=== PATIENT | female | born 1950 | race Caucasian/White ===

== ENCOUNTER 2016-04-24 12:44 | Inpatient (IN) | payer OTHER ==
[~2016-04-24] VITALS: Ht 162.6 cm; Wt 113.5 kg
[2016-04-24] VITALS (34 sets, daily range): BP systolic 68–135; BP diastolic 23–118
--- NOTE | ~2016-04-24 | HC ---
[facility] [place] [address] CONSULTATION Name: EZIO CHE Room #: 246-P [facility] .R.#: [id number] Admission: 04/24/16 Attend Phys: Dave Heck MD Discharge: Date of : 52 Report #: [id number] THIS REPORT FOR: //name// CC: TORO physician/PCP Dave Heck REASON FOR CONSULTATION: The patient is a 65-year-old woman who is seen in the Intensive Care Unit with multiple medical problems including reported abdominal pain and abnormal liver functional studies. HISTORY OF PRESENT ILLNESS: This 65-year-old woman is currently in the Intensive Care Unit. She was admitted to the Emergency Room yesterday. No family available at this time. Apparently, she was found down at home naked on the floor covered with human and dog feces. It is not known how long she was on the floor. She was brought to the Emergency Room and she was hypothermic on presentation with a temperature of 92.9. Her blood pressure was 83/18. She appeared to be markedly dehydrated. She had a severe metabolic acidosis, and she had a pH of 6.736. Her bicarbonate on blood gas was 5.9. Her lactate was 3.94. This morning, she suffered a cardiac arrest and was brought to the Intensive Care Unit. She is currently intubated on a ventilator. She is on multiple pressors. She is also receiving continuous dialysis. Additional history is not available at this time. She did have an abdominal ultrasound, and the gallbladder was not visualized. Common bile duct was borderline enlarged. CT reveals medial bibasilar density suggesting atelectasis. A CT scan has been ordered but not yet done due to her unstable status. PAST MEDICAL HISTORY: Unknown at this time. ALLERGIES: Unknown. HOME MEDICINES: Unknown. FAMILY HISTORY: Unknown. SOCIAL HISTORY: Unknown. Dr. Rosas mentioned to me that she may have some psychiatric issues. PHYSICAL EXAMINATION: GENERAL: Well-developed and well-nourished woman who is orally intubated in the Intensive Unit. VITAL SIGNS: Blood pressure 100/74, pulse of 124, her body temperature is up to 97.5, she has been intermittently hypotensive with systolic pressures as low as 68. HEENT: She is anicteric. Pupils equal and round. Oropharynx clear. Nasogastric tube is seen with a greenish material in the tube. NECK: Supple. CHEST: Clear. [address] [address] CONSULTATION Name: EZIO CHE Room #: 246-P [facility] IN ..#: [id number] Admission: 04/24/16 Attend Phys: Dave Heck MD Discharge: Date of : 52 Report #: [id number] CARDIOVASCULAR: Tachycardic, S1 and S2. ABDOMEN: Normal bowel sounds, some generalized fullness across the upper abdomen. I do not appreciate a specific discrete mass. Hepatosplenomegaly is not appreciated. Bowel sounds are quite at this time. She appears to have a benign abdomen. RECTAL: Not done. EXTREMITIES: With mild peripheral edema. NEUROLOGIC. The patient is unresponsive, on the ventilator. She may be on propofol. LABORATORY STUDIES: White count today is 17.4. It was 33.4 yesterday. Hemoglobin was initially 12.9. It is 9.5 today. MCV of 95.3 and platelet count of 233,000. She had 8% bands yesterday. Sodium 140, it was 151 yesterday. Potassium is 5.4, it was 8.7 on admission. CO2 is 5, it was 7 on admission. BUN was 202 on admission, it is now down to 153. Creatinine was 12.7 on admission, now down to 9.2. Blood sugar was 232 on admission. AST was initially 145, it went to 1247 earlier this morning, but on repeat later this morning it was 1122. Amylase was elevated at 250, lipase elevated at 1278. Alkaline phosphatase was 173 initially, now down to 98. ALT was 108 and on repeat was 594 and a repeat again was done and it was 573. Albumin of 1.7. Lactic acid of 6.8. CPK of 3297 and CK-MB was 111 and troponin was 0.15. INR of 1.4. Hepatitis B surface antigen was negative. Hepatitis C antibody is negative. ASSESSMENT: 1. Abnormal liver function studies, likely shock liver. 2. Septic like picture. 3. Severe acidosis. 4. Severe acute kidney surgery. 5. Reported history of abdominal pain, specific unknown. 6. Reported history of psychiatric disorders, specifics unknown. COMMENT: Case discussed with Dr. Harvey Toney, Dr. Patrick Rosas and Dr. Price Arias. Critically ill patient with very little history is known. She has a marked acidosis. From a GI standpoint, it appears her LFTs may be starting to trend down. She has not developed a coagulopathy. These are all positive signs with regards to presumed shock liver. It is not known whether she has any history of chronic liver disease or alcohol history. There was some report of abdominal pain, significance is unclear. Abdomen, as best as I can determine at this time, is benign. However, in view of her marked acidosis, we need to exclude ischemic gut. In addition, she has mild elevation of amylase and lipase. This has likely resolved her acute kidney injury. PLAN: [address] [place] [address] CONSULTATION Name: EZIO CHE Room #: 246-P ADM IN .R.#: [id number] Admission: 04/24/16 Attend Phys: Dave Heck MD Discharge: Date of : 51 Report #: [id number] as soon as able to do so with regards to transporting her to Radiology. 2. Continue to monitor liver function studies. 3. PPI. 4. Continue current care in the Intensive Care Unit. 5. Continue antibiotics. <ELECTRONICALLY SIGNED> By: Kenneth Diaz MD 04/26/16 1104 1235 0430 Kenneth Diaz MD /nt
--- NOTE | ~2016-04-24 | HC ---
[facility] [place] [address] CONSULTATION Name: EZIO CHE Room #: 246-P ADM IN M.R.#: [id number] Admission: 04/24/16 Attend Phys: Dave Heck MD Discharge: Date of : 51 Report #: [id number] THIS REPORT FOR: //name// CC: TORO physician/PCP Dave Heck PRIMARY CARE PHYSICIAN: Unknown. REFERRAL PHYSICIAN: Dave Heck M.D. REASON FOR REFERRAL: Acute respiratory distress. HISTORY OF PRESENT ILLNESS: The patient is a 65-year-old white female who was brought to the Emergency Room via EMS with altered mental status. She was found to be confused, in distress, with severe metabolic acidosis. A pulmonary critical care consultation was requested. Note that most of the history is obtained from the Emergency Room records. The spouse is not available. There are no family members present. No medical records. According to EMS, the patient's , who does not live with her, found her down naked, covered with feces at her home. The house was said to be unkempt with trash around the house. She was felt to be confused. The called EMS. The patient was brought to the Emergency Room. In the ER, the patient was found to be hypothermic. Subsequent laboratory data showed that she was profoundly metabolic acidotic with creatinine of more than 10, potassium of 8.7 and bicarbonate of 7. Again, there is no history including her past medical history. At present, she is moaning, tachypneic. She is moving most of the extremities. She is not coherent. PAST MEDICAL HISTORY: Incomplete and unknown. PAST SURGICAL HISTORY: As above. ALLERGIES: Unknown. HOME MEDICATIONS: Unknown. FAMILY HISTORY AND SOCIAL HISTORY: Unknown. The patient apparently is , but they do not live together. She apparently lives at her home by herself. It appears that the patient has not been able to care for herself. [facility] [address] [place] [address] CONSULTATION Name: EZIO CHE Room #: [facility] IN [facility]#: [id number] Admission: 04/24/16 Attend Phys: Dave Heck MD Discharge: Date of : 51 Report #: [id number] REVIEW OF SYSTEMS: Deferred as the patient is unable to provide any history. PHYSICAL EXAMINATION: GENERAL: She appears to be restless, incoherent, moaning and tachypneic. VITAL SIGNS: Temperature is 33.8 degrees Celsius, pulse is 70, respiratory rate is 28 and blood pressure is 83/____ mmHg. HEENT: Normocephalic and atraumatic. Mouth revealed a poor oral hygiene. NECK: Supple without any lymphadenopathy or thyromegaly. CHEST: Breath sounds are fair. Mild coarse breath sounds bilaterally. CARDIOVASCULAR: Heart sounds are distant. No obvious murmurs or gallop. BREASTS: Exam is deferred. ABDOMEN: Obese, soft and nontender. No organomegaly or masses felt. There appears to be rash along the pannus, along the lower abdomen area. GENITOURINARY: Deferred. RECTAL: Deferred. EXTREMITIES: No cyanosis, clubbing or edema. DIAGNOSTIC DATA: Chest x-ray shows small lung volume, cardiomegaly. She has a metal plate with screws along the left femoral head. Central line is in place in the right internal jugular. LABORATORY DATA: Sodium 140, potassium 4.7, chloride 103, CO2 is 7, BUN is 202, creatinine is 12.7 and glucose is 231. Liver function test is moderately elevated. WBC 33,400. There is 8% bandemia. Platelets are normal. Hemoglobin is 12.9. CPK is 1500. Troponin is normal. Arterial blood gases reveal pH 7.673, PaCO2 of 22 and PaO2 of 135 on room air. IMPRESSION: 1. Acute respiratory distress in this 65-year-old white female. This is likely related to severe metabolic acidosis. Without much history, suspect component of diabetic ketoacidosis. Severe sepsis is also considered along with severe acidosis related to renal failure. 2. Suspect profound extracellular volume depletion resulting in acute kidney injury with BUN of 200s and creatinine of 12.7. Soni during the ER visit has shown no urine output. 3. Elevated liver function tests. Suspect shock liver. 4. Leukocytosis. Need to consider occult infectious process, though source is unclear. 5. Profound hyperkalemia in part related to severe metabolic acidosis and renal failure. Renal has been consulted. RECOMMENDATION: She is oxygenating fairly well except for metabolic abnormalities. We will recommend correcting metabolic acidosis and also treat for presumed DKA until we can stabilize her acidosis. I agree with aggressive IV fluid replacement. Respiratory decompensation is possible. We will need to monitor closely. Would also start broad spectrum antibiotics. Culture has been [facility] [address] [place] [address] CONSULTATION Name: EZIO CHE Room #: 246-P ADM IN M.R.#: [id number] Admission: 04/24/16 Attend Phys: Dave Heck MD Discharge: Date of : 51 Report #: [id number] obtained. I agree with imaging study of the brain given that she was found down at home. However, we need to stabilize the patient prior to sending her to radiology. She also has abdominal pain on examination. We will recommend abdominal CT and pelvis, non-contrast study. Her altered mental status is probably related to metabolic derangement, but we will need to assess once she improves. We will try to obtain records if possible. We will also consult social service to assist us in getting family members if possible, to help with getting records and information. DVT and GI prophylaxis will be addressed. Thank you for this consultation. <ELECTRONICALLY SIGNED> By: Patrick Rosas MD 05/01/16 1634 1548 [id number] Patrick Rosas MD /nt
--- NOTE | ~2016-04-24 | HC ---
[facility] [place] [address] CONSULTATION Name: EZIO CHE Room #: 429-P [facility] IN M.R.#: [id number] Admission: 04/24/16 Attend Phys: Dave Heck MD Discharge: 05/07/16 Date of : 51 Report #: [id number] THIS REPORT FOR: //name// CC: TORO physician/PCP Dave Heck DATE OF SERVICE: 05/06/2016 HISTORY OF PRESENT ILLNESS: This lady has currently been managed with respect to a sudden change in mental status. Her "" who does not live with her went to her home to check on her and found her in an unfortunate state. It is unknown how long she had been down in the scene. On arriving, she was hypothermic with a temperature of 92.9. She is currently receiving dialysis. She has limited recollection for all the recent medical events including acute renal failure, profound weakness, septic shock, acute kidney injury, encephalopathy and hypothyroidism. The patient has no complaints at this time. She feels she is becoming more alert, as does nursing. PAST PSYCHIATRIC HISTORY: There is a longstanding history of depression. Most recently had been seeing Dr. Melton and she is seeing this provider for several years. She has essentially been maintained on the combination of Effexor and dextroamphetamine. She has no history of inpatient psychiatric stay, she has no history of suicide attempts. PAST MEDICAL HISTORY: As above. SOCIAL HISTORY: , but appears she and her may be or live apart. I do not believe there are any active substance abuse issues. Reviewed rn case manager notes that include concerns about hoarding and difficulty with safe and hygienic environment at home due to bowel incontinence and hoarding. This may have contributed to fall risk and this has apparently happened in the past. CURRENT MEDICATIONS: She has not been on her home medications at this time, I believe she is n.p.o. Current medication combination includes levothyroxine every 3 days, vancomycin 250 every 6 hours, Protonix 40 daily, Ativan p.r.n., insulin p.r.n. MENTAL STATUS EXAM: female, awake, alert, stable mood and affect. No suicidal ideation, no homicidal ideation, no hallucinations, no delusions. Insight and judgment fair. DIAGNOSES: AXIS I: Major depressive disorder, recurrent, moderate. Rule out attention deficit disorder. [facility] [address] [facility] [place] [address] CONSULTATION Name: EZIO CHE Room #: 429-P [facility] IN ..#: [id number] Admission: 04/24/16 Attend Phys: Dave Heck MD Discharge: 05/07/16 Date of : 51 Report #: [id number] AXIS II: Deferred. AXIS III: See past medical history, includes acute kidney injury, rhabdomyolysis, septic shock, etc. AXIS IV: Moderately severe. AXIS V: 45. RECOMMENDATIONS: We will look at restarting some of her psychotropic regimen when she is able to tolerate p.o. and can contact Dr. Melton as necessary for input, provided supportive therapy. <ELECTRONICALLY SIGNED> By: Fernando Gomes MD 05/12/16 1412 1251 1606 Fernando Gomes MD /nt
--- NOTE | ~2016-04-24 | H ---
[facility] [address] HISTORY AND PHYSICAL Name: EZIO CHE Room #: 246-P ADM IN M.R.#: [id number] Admission: 04/24/16 Attend Phys: Dave Heck MD Discharge: Date of : 52 Report #: [id number] THIS REPORT FOR: //name// CC: TORO physician/PCP Dave Heck DATE OF SERVICE: 04/24/2016 History was primarily obtained from talking to Dr. Hendrickson and also reviewing the ER sheet. No family available at bedside. The patient was brought in by her ex-. HISTORY OF PRESENT ILLNESS: The patient is a 65-year-old female with known past medical history, presented in the a.m. with secondary to altered mental status. Per EMS, patient's who does not live with her apparently went into her house and found her on the floor naked and covered with human and dog feces. It is unknown how long the patient was down. EMS was called and the patient was brought to the Emergency Room. On arrival to the Emergency Room, her temperature was 92.9. Her blood pressure was 83/18. She was found to be profoundly dehydrated. She was also found to be having severe metabolic acidosis with acute renal failure. The patient is at present very lethargic, but she was able to open her mouth when I asked her to do so. Her eyes are open at present. PAST MEDICAL HISTORY: Unable to obtain at present. REVIEW OF SYSTEMS: Unable to obtain from the patient. SOCIAL HISTORY AND FAMILY HISTORY: Unable to obtain at present. ALLERGIES: Unknown. HOME MEDICATION: Unknown. PHYSICAL EXAMINATION: VITAL SIGNS: Reviewed. Blood pressure is presently 90/67, heart rate of 87 per minute. She is breathing at around 32 per minute. Her temperature on arrival was 33.8. HEENT: Eyes are open. She is moving her head with a little bit of agitation. She is able to open her mouth when I asked her to do so. The pupils are around 2 mm, reactive to light. MOUTH: She has very dry oral mucosa. NECK: Supple, no JVD, no bruit, no lymphadenopathy. CARDIOVASCULAR: S1, S2, negative S3, no murmur. CHEST: Bilateral air entry present. Clear on auscultation. Reduced breath sounds in the bases. [facility] [address] [place] [address] HISTORY AND PHYSICAL Name: EZIO CHE Room #: [address] [place] [address] IN ..#: [id number] Admission: 04/24/16 Attend Phys: Dave Heck MD Discharge: Date of : 51 Report #: [id number] ABDOMEN: Soft, bowel sounds present, no mass, no organomegaly, no tenderness, but soft. She has extensive tinea cruris in her groin. PERIPHERY: No pedal edema. No calf tenderness. Dorsalis pedis is very feeble and difficult to appreciate bilaterally. EXTREMITIES: Cold and she was able to move all 4 extremities. LABS REVIEWED: pH of 6.736, pCO2 is 26, pO2 is 135. Lactate is 6.12. Bicarbonate on the basic metabolic panel was 7, potassium was 8.7, sodium is 140, BUN and creatinine are 202 and 12.7. Calcium is 10.5, phosphorus is 17.3 with a bilirubin of 0.5, AST and ALT are elevated at 145 and 108, alkaline phosphatase is 137. Creatinine kinase is 1562, albumin is 2.9. Bicarb was 7. White count is 33.4, hemoglobin is 12.9. Differential on the white count showed 8% band and 85% neutrophils. Albumin is 2.9. IMAGING: Chest x-ray showed mild atelectasis in the lung base with osteophyte formation at multiple levels and thoracic spine. No focal pneumonia or pneumothorax noted. EKG showed sinus tachycardia, nonspecific intraventricular conduction delay. ASSESSMENT: 1. Altered mental status. Likely, secondary to metabolic encephalopathy secondary to multiple critical issues. We will go ahead and obtain a CT of the brain to rule out any intracranial process. 2. Acute renal failure likely prerenal and there is also component of rhabdomyolysis. The patient will be aggressively hydrated with IV fluid. Nephrology has been consulted in the Emergency Room. I did talk to Dr. Vera and the plan is to place a central line hydrated with IV fluid and hyperkalemia was also aggressively treated as per his recommendation with calcium carbonate, D50, insulin and high dose. We will repeat her labs again. 3. Hyperkalemia. Treated aggressively. Hyperkalemia likely secondary to a combination metabolic acidosis, dehydration and acute renal failure. 4. Severe metabolic acidosis. The patient has received bicarb IV pushes in the Emergency Room. The patient will be hydrated with IV fluid. We will repeat her lab again and consider placing her on bicarb drip. 5. Leukocytosis secondary to stress/infection. We will start her on a broad-spectrum antibiotic IV Zosyn. We will repeat her WBC in the morning. 6. Deep venous thrombosis prophylaxis. She will be placed on SCD on the leg for deep vein thrombosis prophylaxis. 7. Hyperglycemia. The patient will be placed on frequent Accu-Chek and sliding scale insulin. We will also check an A1c level. [address] [address] HISTORY AND PHYSICAL Name: EZIO CHE Room #: 246-P [facility] IN ..#: [id number] Admission: 04/24/16 Attend Phys: Dave Heck MD Discharge: Date of : 51 Report #: [id number] The patient is critically ill and prognosis is guarded at present. <ELECTRONICALLY SIGNED> By: Dave Heck MD 04/25/16 1146 1504 1720 Dave Heck MD /nt
--- NOTE | ~2016-04-24 | HC ---
[facility] [place] [address] CONSULTATION Name: EZIO CHE Room #: 246-P ADM IN M.R.#: [id number] Admission: 04/24/16 Attend Phys: Dave Heck MD Discharge: Date of : 52 Report #: [id number] THIS REPORT FOR: //name// CC: TORO physician/PCP Dave Heck REASON FOR CONSULTATION: Acute kidney injury, hyperkalemia, metabolic acidosis. REASON FOR THE PRESENTATION: The patient was brought by the [facility]. No family available. Message was relayed to me that she is , but the marriage arrangement is not clear to me whether she is or . Her checked ahead and called EMS and directed them to the hospital where she was found down. HISTORY OF PRESENT ILLNESS: The patient is not able to provide any history. All of the history was obtained from the medical reports. She is 65-year-old who was brought to the emergency room at her 's request, who does not live with her. He found her on the floor, covered with human excreta. It was unknown for how long, the patient was down. She was found to be hypothermic with hypotension and was brought to the emergency room for further evaluation and management. In the Emergency Room, she was hypotensive. She did have a pulse and the blood pressure. Her initial laboratory evaluation revealed severe metabolic acidosis with hyperkalemia, I was consulted with elevated BUN and creatinine for which I was consulted appropriately. PAST MEDICAL HISTORY: Unknown given the patient's medical status. I attempted to call the with the available phone number and no answer. REVIEW OF SYSTEMS: Unobtainable. SOCIAL HISTORY, FAMILY HISTORY: Unobtainable given the patient's medical status. ALLERGIES: Unknown. MEDICATIONS: Really unknown given the fact that the patient is not able to provide us with any history and there are no available previous medical records. PHYSICAL EXAMINATION: GENERAL: The patient was hypotensive, minimally responsive. VITAL SIGNS: Blood pressure initially was 83/30. She was hypothermic with a temperature of 33.6. HEAD AND NECK: Extremely dry mucous membrane, no jugular venous distention. Very poor dental hygiene. CHEST: Decreased air entry, but no crackles. CARDIOVASCULAR: Tachycardic with no rub detected. ABDOMEN: Soft, nontender with no hepatosplenomegaly. [address] [address] CONSULTATION Name: EZIO CHE Room #: 246-P [facility] IN M.R.#: [id number] Admission: 04/24/16 Attend Phys: Dave Heck MD Discharge: Date of : 52 Report #: [id number] There is what seems to be a yeast infection in the abdominal skin below the abdominal skin folds. LOWER EXTREMITIES: Trace edema. LABORATORY DATA: All of the laboratory values were also abnormal range with a white blood cell count of 33,000, bands of 8%. Blood gas initially showed a pH of 6.7 with the lactate value of 2.39, down from a lactate value of 6.12. Chemistry revealed that the patient has a potassium of 8.7 with a carbon dioxide of 7, a BUN of 212, a creatinine of 12.7, calcium of 10.5, a phosphorus of 17.3, an elevated AST, elevated ALT, elevated CPK, and elevated lipase. Urine showed +2 protein with +3 blood, +3 leukocyte Estrace. IMAGES: Reviewed. ASSESSMENT, IMPRESSION, PLAN: 1. Acute kidney injury. 2. Profound shock. 3. Lactic acidosis. 4. Hyperkalemia. 5. Elevated AST. 6. Elevated ALT. 7. Elevated lipase. 8. Leukocytosis with bandemia. 9. Sepsis. 10. Unfortunately, the patient's past medical history is not clear to us. At this point, I would treat the patient as septic shock. 1. I have talked with the hospitalist and with the ER physician. I also attempted to talk with the ; however, there was no answer. Her hyperkalemia will be managed medically. 2. ____ will be placed. 3. Septic workup was initiated. 4. Broad spectrum antibiotics should be started empirically to cover both gram-positive and gram-negative. 5. Aggressive intravenous fluid resuscitation. 6. Serial labs. 7. . 8. Watch the pulmonary status and intubate if she deteriorates. 9. Investigate the source of the elevation of her ALT, AST, lipase. 10. Rule out rhabdomyolysis. 11. I see no emergent indications for dialysis despite the significantly abnormal renal values and metabolic acidosis. I expect her metabolic acidosis, [facility] [address] [place] [address] CONSULTATION Name: EZIO CHE Room #: 246-P ADM IN M.R.#: [id number] Admission: 04/24/16 Attend Phys: Dave Heck MD Discharge: Date of : 52 Report #: [id number] hypokalemia, acute kidney injury to respond to medical treatment within the next few hours and I will stay in touch with the ICU nurses regarding her values. <ELECTRONICALLY SIGNED> By: Joy Vera MD 05/01/16 0926 2042 0137 Joy Vera MD /nt
--- NOTE | ~2016-04-24 | EKG ---
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
--- NOTE | ~2016-04-24 | HC ---
[facility] [place] [address] CONSULTATION Name: EZIO CHE Room #: 429-P [facility] IN ..#: [id number] Admission: 04/24/16 Attend Phys: Dave Heck MD Discharge: 05/07/16 Date of : 52 Report #: [id number] THIS REPORT FOR: //name// CC: TORO physician/PCP Dave Heck DATE OF SERVICE: 04/25/2016 HISTORY OF PRESENT ILLNESS: The patient is a 65-year-old female who was admitted on 04/24/2016 with altered mental status. The patient was left at the Emergency Department after she had been found on the floor, naked, covered in feces. It is unknown how long the patient had been down. The patient was hypothermic upon arrival with a rectal temperature of 92.9 degrees Fahrenheit. The patient was evaluated by internal medicine and critical care and had been kept in the Intensive Care Unit. Unfortunately, imaging was not obtained as she was admitted. Overnight at some point, the patient went into cardiac arrest and developed a Code Blue situation. She was intubated and resuscitated to some degree. Today, she is on vasopressor support and still intubated. She is also noted to have acute renal failure and is on CRRT presently. General surgery is consulted as the etiology of her shock is unknown. There is question as to whether there might be an intra-abdominal process which might be contributing to her toxic critical illness. Temporary dialysis catheter as well as a triple-lumen central venous catheter had been placed during her resuscitation. Chest x-rays suggested pulmonary congestion without failure and possible atelectasis. Initial laboratory evaluation showed that she was exceedingly ill with a lactate of 6.8, white blood cell count of 33.4 thousand, hemoglobin of 12.9 and an initial pH of 6.736 and base access of negative 31.9. Ultrasound of the abdomen was attempted. No gallbladder was visualized. Common bile duct was visualized at 6.6 mm in diameter. Liver was 14.7 cm. Spleen 10.3 cm maximum. No obvious abnormalities of the pancreas, aorta or IVC. No ascites or effusion was noted. Lipase was mildly elevated at 1278 and amylase at 250. PTT 39.1 and ammonia of 32. ALLERGIES: Unknown. MEDICATIONS: Unknown. The patient is presently on broad-spectrum antibiotics per infectious disease as well as vasopressor support in the Intensive Care Unit. PAST MEDICAL HISTORY: Unknown. FAMILY HISTORY AND SOCIAL HISTORY: Unknown. REVIEW OF SYSTEMS: Unobtainable [place] [address] CONSULTATION Name: EZIO CHE Room #: 429-P [facility]#: [id number] Admission: 04/24/16 Attend Phys: Dave Heck MD Discharge: 05/07/16 Date of : 52 Report #: [id number] PHYSICAL EXAMINATION: GENERAL: The patient is intubated and morbidly obese. She is . No obvious icterus is noted. VITAL SIGNS: The patient is now with mild fever at 38.2, pulse in the 120s, respirations in the 30s, blood pressure of 110s/90s on vasopressor support according to the non-invasive blood pressure monitor. Saturation of 94%. The patient does have a BMI of 35.5. HEENT: Head is atraumatic and normocephalic. Endotracheal tube is secure. LUNGS: Coarse bilaterally. NECK: Supple. HEART: Regular without obvious murmur. ABDOMEN: Obese. She does seem to grimace with deep palpation in the left upper quadrant, epigastrium and right upper quadrant. Multiple well-healed surgical scars including a midline celiotomy and either a laparoscopic port or a drain site in the upper mid abdomen. GENITOURINARY: Soni catheter is in place. Concentrated urine, scant. EXTREMITIES: Cool and clammy, consistent with current need for vasopressor support. LABORATORY DATA: Total bilirubin of 0.3, AST of 1122, ALT of 573 and alkaline phosphatase of 98. IMPRESSION AND PLAN: The patient is a 65-year-old female with severe shock of unclear etiology. This could be cardiac versus septic. There are no obvious signs of trauma at this point. The patient is also an acute renal failure, undergoing continuous renal reperfusion therapy via a temporary hemodialysis catheter which was placed by interventional radiology earlier. Profound metabolic acidosis with initial pH of 6.7 and a lactic acid level of 6.8, which are worrisome findings from a survivability perspective. Upper abdominal discomfort is noted on examination. This is possibly associated with Code Blue resuscitation, which was performed early this morning. One question that had been raised was whether fulminant acute cholecystitis could be a contributing factor. However, gallbladder is not visualized, although the common bile duct is visualized. The common bile duct measurements would be normal in size, should the patient have undergone previous cholecystectomy. Unfortunately, the patient's past medical and past surgical history are unknown at this time. Given her critically ill status requiring ongoing vasopressor support, even transporting the patient to the CT scanner will be dangerous. Certainly, the patient is not an operative candidate at this time, and there are no obvious indications for an abdominal exploration at this stage. Family is apparently unavailable to discuss the patient's wishes and to obtain a further history at this time. General Surgery team will follow closely and continue to [facility] [address] [place] [address] [place] [address] CONSULTATION Name: TODDEZIO TOMAS Room #: 429-P [facility] IN M.R.#: [id number] Admission: 04/24/16 Attend Phys: Dave Heck MD Discharge: 05/07/16 Date of : 51 Report #: [id number] be available should information arise, which would give indication for general surgical intervention. Consultation appreciated. <ELECTRONICALLY SIGNED> By: Harvey Toney MD 05/11/16 1145 1527 0755 Harvey Toney MD /nt
--- NOTE | ~2016-04-24 | 2DMMODE ---
[facility] [employer] [place] [address] 2 D/M-MODE ECHOCARDIOGRAM Name: EZIO CHE Room #: 429-P [facility] IN .#: [id number] Admission: 04/24/16 Attend Phys: Sandra Jeter Discharge: Date of : 52 Date of Service: 05/06/16 0920 Report #: [id number] THIS REPORT FOR: //name// Transthoracic Echocardiography Ordering physician: Truong Molina Referring physician: Truong Molina Puller Out: SEBLE Gomes Indications/History: S/P cardiac arrest. BP: 116 / HR: 122bpm Height: 64in Weight: 249.5lb 56 Study data: M-mode, complete 2D, complete spectral Doppler, and color Doppler. Location: Bedside. Routine. Image quality was poor. The study was technically limited due to poor acoustic window availability, restricted patient mobility, surgical dressings, and body habitus. 2D measurements Normal Normal LVID ED 35mm 36-57 IVS ED 14.3mm 6-11 LVID ES 21.4mm 23-40 LVPW ED 15.4mm 6-11 LA volume index 16-28 AoRoot diam ED 31.5mm 21-37 LVOT diameter 18-23 Findings: Left ventricle: The cavity size was normal. Wall thickness was increased in a pattern of moderate LVH. Systolic function was hyperdynamic. The estimated ejection fraction was in the range of 75% to 80%. Wall motion was normal. Right ventricle: The cavity size was normal. Systolic function was normal. Right atrium: The atrium was normal in size. Left atrium: The atrium was normal in size. Aortic valve: Structurally normal valve. Doppler: There was no stenosis. No regurgitation. Peak velocity: 162.2cm/s (S). Peak gradient: 10.5mm Hg (S). Mitral valve: Structurally normal valve. Doppler: [facility] [address] [place] [address] 2 D/M-MODE ECHOCARDIOGRAM Name: EZIO CHE Room #: 429-P [facility] IN M.R.#: [id number] Admission: 04/24/16 Attend Phys: Sandra Jeter Discharge: Date of : 52 Date of Service: 05/06/16919 Report #: [id number] There was no evidence for stenosis. No regurgitation. Tricuspid valve: Structurally normal valve. Doppler: There was no evidence for stenosis. No regurgitation. Pulmonic valve: Structurally normal valve. Doppler: There was no evidence for stenosis. No regurgitation. Pericardium: There was no pericardial effusion. Aorta: Aortic root: The aortic root was normal in size. Pulmonary artery: Pressure could not be reliably determined due to minimal or absent tricuspid insufficiency jet, but pulmonary hypertension was not suggested. Diastolic function: The study is not technically sufficient to allow evaluation of LV diastolic function. Systemic veins: Inferior vena cava: The vessel was normal in size; the respirophasic diameter changes were in the normal range (= 50%). Conclusions Limited echo study. 1. Left ventricle: Systolic function was hyperdynamic. The estimated ejection fraction was in the range of 75% to 80%. Wall motion was normal. 2. Aortic valve: Structurally normal valve. There was no stenosis. No regurgitation. 3. Mitral valve: Structurally normal valve. No regurgitation. 4. Pericardium, extracardiac: There was no pericardial effusion. <ELECTRONICALLY SIGNED> By: Crescencio Jimenez MD, [facility] 05/06/16 1021 0920 1021 Crescencio Jimenez MD, FACC /s[place]ia
--- NOTE | ~2016-04-24 | HC ---
[facility] [place] [address] CONSULTATION Name: EZIO CHE Room #: 246-P ADM IN M.R.#: [id number] Admission: 04/24/16 Attend Phys: Dave Heck MD Discharge: Date of : 52 Report #: [id number] THIS REPORT FOR: //name// CC: TROO physician/PCP Dave Heck REASON FOR CONSULTATION: I was asked to evaluate concerning septic shock with acute renal failure. HISTORY OF PRESENT ILLNESS: The patient was a 65-year-old who was found at home with altered mental status, naked on the floor, covered in feces. She was found by her . Transported to the Emergency Room where she has been hypothermic with blood pressure systolic in the 80s. She has been given IV fluids. The patient is unable to give any history. She was responsive, but confused. ALLERGIES: None known. MEDICATIONS: Not known. She has been given Zosyn, fluconazole and placed on insulin. PAST MEDICAL HISTORY: Not available. FAMILY HISTORY AND SOCIAL HISTORY: Not available. REVIEW OF SYSTEMS: The patient has a right IJ catheter and a right IJ dialysis catheter in place, an indwelling Soni catheter with no urine output. She has been incontinent of loose stool. PHYSICAL EXAMINATION: VITAL SIGNS: Temperature is 92.9, heart rate 88, blood pressure 92/48. GENERAL: She was awake and responsive with cry out when moving her. HEENT: Unremarkable. NECK: Supple. LYMPH: Small node palpable in the right axilla. LUNGS: Clear. HEART: Regular without associated murmur. ABDOMEN: Protuberant, diffusely tender, no hepatosplenomegaly or mass appreciated. RECTAL: With small amount of liquid stool in the vault. EXTERNAL GENITALIA: Unremarkable with indwelling Soni catheter. She did have perineal intertrigo beneath her abdominal pannus and in her groin region as well as her buttock. EXTREMITIES: Otherwise unremarkable. NEUROLOGIC: Nonfocal. LABORATORY STUDIES: Sodium 140, potassium 8.7, bicarbonate of 7, BUN 202, creatinine 12.7. Lipase 1278. AST 145, ALT 108, alkaline phosphatase 173, [address] [address] CONSULTATION Name: EZIO CHE Room #: 246-P ADM IN .R.#: [id number] Admission: 04/24/16 Attend Phys: Dave Heck MD Discharge: Date of : 52 Report #: [id number] bilirubin 0.5, blood glucose 232. Lactate 6.8. CPK 1562, troponin negative. INR 1.3, hemoglobin 12.9, platelet count 284,000. White count 33.4 with 85% segs, 8% bands, 3% lymphs. Blood cultures are pending. Urinalysis is pending. ABG on 100% mask, pO2 of 254, pCO2 of 22, pH 7.09. Chest x-ray: Small area of basilar atelectasis. Ultrasound of the abdomen unremarkable. IMPRESSION: A 65-year-old with a profound metabolic acidosis and acute renal failure along with evidence of pancreatitis and mild hepatitis. She has diffuse abdominal pain, indeterminant as to the cause at this time. Would be concerned about acute pancreatitis versus colitis either ischemic or associated with diverticular disease. Also, has evidence of intertrigo. She has a suspected right axillary node which was freely movable. Did not palpate any right breast mass. No other adenopathy was noted. RECOMMENDATIONS: Continue sepsis treatment, IV antibiotic therapy, acute dialysis. CT scan of the abdomen and pelvis. Cultures of the urine and blood and continue full support. <ELECTRONICALLY SIGNED> By: Price Arias MD 04/25/16 1024 1811 0036 Price Arias MD /nt
[2016-04-24 13:13] LABS: HEMATOCRIT 41.3 % (37.0-47.0); HEMOGLOBIN 12.9 gm/dL (12.0-15.0); MCH 29.8 pg (26.0-34.0); MCHC 31.3 % (28.0-37.0); MCV 95.1 fL (80.0-100.0); PLATELET COUNT 455 thou/uL (150-400); RBC 4.35 mil/uL (4.20-5.00); RDW 15.2 % (10.5-14.5); WBC 33.4 thou/uL (4.0-11.0)
[2016-04-24 13:16] LABS: MANUAL DIFF YES
[2016-04-24 13:28] LABS: ANION GAP 30 mmol/L (7-16); BUN 202 mg/dL (7-18); CALCIUM 10.5 mg/dL (8.5-10.1); CHLORIDE 103 mmol/L (98-107); CREATININE 12.7 mg/dL (0.6-1.3); GLUCOSE 232 mg/dL (70-99); SODIUM 140 mmol/L (136-145)
[2016-04-24 13:31] LABS: CO2 7 mmol/L (21-32); POTASSIUM 8.7 mmol/L (3.5-5.1)
[2016-04-24 13:44] LABS: ALBUMIN 2.9 g/dL (3.4-5.0); ALKALINE PHOSPHATASE 173 U/L (46-116); SGOT 145 U/L (15-37); SGPT 108 U/L (30-65); TOTAL BILIRUBIN 0.5 mg/dL (<0.1-1.0); TOTAL PROTEIN 7.5 g/dL (6.4-8.2); TROPONIN-I < 0.04 ng/mL (<0.04-0.07)
[2016-04-24 13:45] LABS: ABSOLUTE NEUTROPHILS 31.1 thou/uL (1.4-8.2); TOTAL CELL COUNT 100
[2016-04-24 13:46] LABS: ABG SAMPLE TYPE ARTERIAL; BE(vivo) -31.9 mmol/L (-2 to +3); O2(CT) 16.8 mL/dL (15.0-23.0); O2Hb 96.5 % (92.0-98.0); PO2 135.9 mmHg (80.0-100.0); sO2 94.5 % (92.0-98.0); tCO2 3.7 mmol/L (24.0-30.0)
[2016-04-24 13:46] LABS: ANISOCYTOSIS 1+
[2016-04-24 13:47] LABS: LACTATE 6.12 mmol/L (0.5-2.0); PCO2 22.7 mmHg (35.0-45.0); STICK SITE L.RADIAL; pH 6.736 (7.360-7.450)
[2016-04-24 14:09] LABS: PHOSPHORUS 17.3 mg/dL (2.5-4.9)
[2016-04-24 15:33] LABS: APTT 37.3 Seconds (24.5-32.8); INR 1.3; PROTIME 13.3 Seconds (9.3-11.4)
[2016-04-24 17:21] LABS: ABG SAMPLE TYPE ARTERIAL; BE(vivo) -21.4 mmol/L (-2 to +3); HCO3 6.7 mmol/L (22.0-26.0); LACTATE 3.31 mmol/L (0.5-2.0); O2(CT) 15.4 mL/dL (15.0-23.0); O2Hb 97.9 % (92.0-98.0); PO2 254.5 mmHg (80.0-100.0); sO2 99.3 % (92.0-98.0); tCO2 7.4 mmol/L (24.0-30.0)
[2016-04-24 17:22] LABS: PCO2 22.5 mmHg (35.0-45.0); STICK SITE L.BRACHIAL; pH 7.092 (7.360-7.450)
[2016-04-24 17:44] LABS: AMYLASE 250 U/L (25-115)
[2016-04-24 17:44] LABS: ABG SAMPLE TYPE VENOUS; BE(vivo) -21.1 mmol/L (-2 to +3); HCO3 8.1 mmol/L (22.0-26.0); LACTATE 3.07 mmol/L (0.5-2.0); O2(CT) 10.1 mL/dL (15.0-23.0); O2Hb VENOUS 67.6 (65.0-85.0); PCO2 VENOUS 30.3 mmHg (41.0-51.0); PO2 VENOUS 37.9 mmHg (35.0-45.0); STICK SITE LINE; tCO2 9.1 mmol/L (24.0-30.0)
[2016-04-24 17:48] LABS: CALCIUM 7.1 mg/dL (8.5-10.1); CREATININE 9.4 mg/dL (0.6-1.3); POTASSIUM 5.2 mmol/L (3.5-5.1)
[2016-04-24 17:56] LABS: CK-MB MASS 111.7 ng/mL (<0.5-3.6); TROPONIN-I < 0.04 ng/mL (<0.04-0.07)
[2016-04-24 18:43] LABS: ABG SAMPLE TYPE VENOUS; BE(vivo) -20.5 mmol/L (-2 to +3); HCO3 7.6 mmol/L (22.0-26.0); LACTATE 2.73 mmol/L (0.5-2.0); O2(CT) 10.4 mL/dL (15.0-23.0); O2Hb VENOUS 74.2 (65.0-85.0); PCO2 VENOUS 25.3 mmHg (41.0-51.0); PO2 VENOUS 42.6 mmHg (35.0-45.0); STICK SITE LINE; sO2 VENOUS 62.2 % (65.0-85.0); tCO2 8.4 mmol/L (24.0-30.0)
[2016-04-24 19:36] LABS: ABG SAMPLE TYPE VENOUS; BE(vivo) -19.9 mmol/L (-2 to +3); HCO3 7.4 mmol/L (22.0-26.0); LACTATE 2.39 mmol/L (0.5-2.0); O2(CT) 10.3 mL/dL (15.0-23.0); PCO2 VENOUS 22.4 mmHg (41.0-51.0); PO2 VENOUS 38.4 mmHg (35.0-45.0); STICK SITE LINE; sO2 VENOUS 58.3 % (65.0-85.0); tCO2 8.1 mmol/L (24.0-30.0)
[2016-04-24 20:20] LABS: CALCIUM 7.2 mg/dL (8.5-10.1)
[2016-04-24 20:23] LABS: APTT 40.6 Seconds (24.5-32.8); INR 1.4; PROTIME 14.5 Seconds (9.3-11.4)
[2016-04-24 20:34] LABS: ABG SAMPLE TYPE VENOUS; BE(vivo) -20.3 mmol/L (-2 to +3); LACTATE 2.67 mmol/L (0.5-2.0); O2(CT) 11.3 mL/dL (15.0-23.0); O2Hb VENOUS 78.8 (65.0-85.0); PCO2 VENOUS 21.4 mmHg (41.0-51.0); PO2 VENOUS 47.4 mmHg (35.0-45.0); STICK SITE LINE; sO2 VENOUS 71.5 % (65.0-85.0); tCO2 7.7 mmol/L (24.0-30.0)
[2016-04-24 20:35] LABS: FIBRINOGEN 439.7 mg/dL (210-360)
[2016-04-24 20:37] LABS: URINE BILIRUBIN NEGATIVE (Negative); URINE BLOOD 3+ (Negative); URINE COLOR YELLOW; URINE GLUCOSE-RANDOM* NEGATIVE (Negative); URINE KETONES NEGATIVE (Negative); URINE LEUKOCYTES-REFLEX 3+ (Negative); URINE PROTEIN (DIPSTICK) 2+ (Negative); URINE SPECIFIC GRAVITY 1.025 (1.003-1.035); URINE UROBILINOGEN 0.2 E.U./dl (0.2-1.0)
[2016-04-24 20:41] LABS: CASTS None Seen /LPF (None Seen); CRYSTALS None Seen /LPF (None Seen); SQUAMOUS 0-3 Few /LPF (0-3); URINE WBC-REFLEX >25 Many /HPF (0-5)
[2016-04-24 21:37] LABS: ABG SAMPLE TYPE VENOUS; BE(vivo) -20.3 mmol/L (-2 to +3); LACTATE 2.47 mmol/L (0.5-2.0); O2(CT) 11.1 mL/dL (15.0-23.0); O2Hb VENOUS 76.2 (65.0-85.0); PCO2 VENOUS 21.1 mmHg (41.0-51.0); PO2 VENOUS 45.2 mmHg (35.0-45.0); STICK SITE LINE; sO2 VENOUS 68.8 % (65.0-85.0); tCO2 7.6 mmol/L (24.0-30.0)
[2016-04-24 22:59] LABS: ABG SAMPLE TYPE VENOUS; BE(vivo) -20.3 mmol/L (-2 to +3); HCO3 7.2 mmol/L (22.0-26.0); LACTATE 2.39 mmol/L (0.5-2.0); O2(CT) 11.5 mL/dL (15.0-23.0); O2Hb VENOUS 76.5 (65.0-85.0); PCO2 VENOUS 22.2 mmHg (41.0-51.0); PO2 VENOUS 45.7 mmHg (35.0-45.0); STICK SITE LINE; sO2 VENOUS 68.9 % (65.0-85.0); tCO2 7.9 mmol/L (24.0-30.0)
[2016-04-24 23:59] LABS: ABG SAMPLE TYPE VENOUS; BE(vivo) -20.9 mmol/L (-2 to +3); LACTATE 2.75 mmol/L (0.5-2.0); O2(CT) 14.8 mL/dL (15.0-23.0); O2Hb VENOUS 75.4 (65.0-85.0); PCO2 VENOUS 23.1 mmHg (41.0-51.0); PO2 VENOUS 45.6 mmHg (35.0-45.0); STICK SITE LINE; sO2 VENOUS 67.1 % (65.0-85.0); tCO2 7.8 mmol/L (24.0-30.0)
[2016-04-25] VITALS (48 sets, daily range): BP systolic 75–165; BP diastolic 16–146
[2016-04-25 00:10] LABS: HEPATITIS C VIRUS AB <0.1 (0.0-0.9)
[2016-04-25 01:57] LABS: APTT 38.3 Seconds (24.5-32.8); INR 1.3; PROTIME 13.4 Seconds (9.3-11.4)
[2016-04-25 02:02] LABS: ALBUMIN 1.7 g/dL (3.4-5.0); CALCIUM 7.2 mg/dL (8.5-10.1); CREATININE 8.9 mg/dL (0.6-1.3); FIBRINOGEN 426.8 mg/dL (210-360); TOTAL BILIRUBIN 0.4 mg/dL (<0.1-1.0); TOTAL PROTEIN 4.6 g/dL (6.4-8.2)
[2016-04-25 02:06] LABS: GLYCOHEMOGLOBIN (HGB A1C) 6.3 % (4.8-5.6)
[2016-04-25 03:19] LABS: ABG SAMPLE TYPE ARTERIAL; BE(vivo) -23.5 mmol/L (-2 to +3); HCO3 5.9 mmol/L (22.0-26.0); LACTATE 3.94 mmol/L (0.5-2.0); O2(CT) 14.3 mL/dL (15.0-23.0); O2Hb 94.7 % (92.0-98.0); PCO2 23.6 mmHg (35.0-45.0); pH 7.017 (7.360-7.450); sO2 94.7 % (92.0-98.0); tCO2 6.6 mmol/L (24.0-30.0)
[2016-04-25 03:20] LABS: STICK SITE R.RADIAL
[2016-04-25 04:19] LABS: BASOPHILS 0.1 % (0.0-2.0); PLATELET COUNT 233 thou/uL (150-400)
[2016-04-25 04:21] LABS: ABSOLUTE NEUTROPHILS 14.4 thou/uL (1.4-8.2); HEMATOCRIT 30.9 % (37.0-47.0); LYMPHOCYTES 10.1 % (24.0-44.0); MCH 29.4 pg (26.0-34.0); MCHC 30.8 % (28.0-37.0); MCV 95.3 fL (80.0-100.0); MONOCYTES 6.9 % (1.0-8.0); POLYS 82.9 % (36.0-66.0); RBC 3.24 mil/uL (4.20-5.00); RDW 14.8 % (10.5-14.5)
[2016-04-25 04:24] LABS: HEMOGLOBIN 9.5 gm/dL (12.0-15.0); MANUAL DIFF NO; WBC 17.4 thou/uL (4.0-11.0)
[2016-04-25 04:28] LABS: APTT 45.8 Seconds (24.5-32.8); INR 1.4; PROTIME 14.3 Seconds (9.3-11.4)
[2016-04-25 04:38] LABS: ABG SAMPLE TYPE ARTERIAL; BE(vivo) -21.7 mmol/L (-2 to +3); HCO3 7.4 mmol/L (22.0-26.0); O2(CT) 15.1 mL/dL (15.0-23.0); O2Hb 97.9 % (92.0-98.0); PCO2 27.7 mmHg (35.0-45.0); PO2 375.6 mmHg (80.0-100.0); sO2 99.6 % (92.0-98.0); tCO2 8.3 mmol/L (24.0-30.0)
[2016-04-25 04:39] LABS: LACTATE 7.93 mmol/L (0.5-2.0); pH 7.045 (7.360-7.450)
[2016-04-25 04:40] LABS: STICK SITE R.BRACHIAL; TIDAL VOLUME 600 ml
[2016-04-25 05:07] LABS: MAGNESIUM 2.2 mg/dL (1.8-2.4); PHOSPHORUS 8.8 mg/dL (2.5-4.9)
[2016-04-25 07:25] LABS: ALBUMIN 1.7 g/dL (3.4-5.0); CREATININE 9.2 mg/dL (0.6-1.3); POTASSIUM 5.4 mmol/L (3.5-5.1); TOTAL BILIRUBIN 0.3 mg/dL (<0.1-1.0); TOTAL PROTEIN 4.3 g/dL (6.4-8.2)
[2016-04-25 07:26] LABS: CALCIUM 9.2 mg/dL (8.5-10.1)
[2016-04-25 12:57] LABS: POTASSIUM 3.6 mmol/L (3.5-5.1)
[2016-04-25 12:58] LABS: CREATININE 4.7 mg/dL (0.6-1.3)
[2016-04-25 13:05] LABS: ABG SAMPLE TYPE ARTERIAL; BE(vivo) -4.6 mmol/L (-2 to +3); HCO3 17.6 mmol/L (22.0-26.0); O2(CT) 16.9 mL/dL (15.0-23.0); O2Hb 98.5 % (92.0-98.0); pH 7.466 (7.360-7.450); sO2 99.4 % (92.0-98.0); tCO2 18.4 mmol/L (24.0-30.0)
[2016-04-25 13:06] LABS: FIO2 50 %; LACTATE 5.12 mmol/L (0.5-2.0); STICK SITE LINE; TIDAL VOLUME 600 ml
[2016-04-25 22:52] LABS: HEMATOCRIT 26.4 % (37.0-47.0); HEMOGLOBIN 9.2 gm/dL (12.0-15.0); MCH 30.2 pg (26.0-34.0); MCHC 34.8 % (28.0-37.0); PLATELET COUNT 176 thou/uL (150-400); RBC 3.04 mil/uL (4.20-5.00); RDW 13.5 % (10.5-14.5); WBC 29.9 thou/uL (4.0-11.0)
[2016-04-25 22:59] LABS: MCV 86.9 fL (80.0-100.0)
[2016-04-25 23:05] LABS: MANUAL DIFF YES
[2016-04-26 01:06] LABS: ABSOLUTE NEUTROPHILS 26.6 thou/uL (1.4-8.2); METAMYELOCYTES 4 %; NUCLEATED RBCS 5 /100WBC; TOTAL CELL COUNT 100; TOXIC GRANULATION 3+
[2016-04-26 01:07] LABS: MICROCYTES 1+
[2016-04-26 04:19] LABS: ABG SAMPLE TYPE ARTERIAL; BE(vivo) -3.7 mmol/L (-2 to +3); HCO3 18.6 mmol/L (22.0-26.0); LACTATE 2.09 mmol/L (0.5-2.0); O2(CT) 14.2 mL/dL (15.0-23.0); O2Hb 97.3 % (92.0-98.0); PCO2 25.4 mmHg (35.0-45.0); STICK SITE LINE; TIDAL VOLUME 600 ml; pH 7.483 (7.360-7.450); tCO2 19.4 mmol/L (24.0-30.0)
[2016-04-26 04:20] LABS: ABG COMMENT A/C RATE 14
[2016-04-26 04:45] LABS: HEMATOCRIT 27.1 % (37.0-47.0); HEMOGLOBIN 9.3 gm/dL (12.0-15.0); MCH 29.7 pg (26.0-34.0); MCHC 34.1 % (28.0-37.0); MCV 87.2 fL (80.0-100.0); PLATELET COUNT 179 thou/uL (150-400); RBC 3.11 mil/uL (4.20-5.00); RDW 13.6 % (10.5-14.5); WBC 34.2 thou/uL (4.0-11.0)
[2016-04-26 04:49] LABS: MANUAL DIFF YES
[2016-04-26 04:58] LABS: APTT 46.9 Seconds (24.5-32.8); INR 1.4; PROTIME 14.9 Seconds (9.3-11.4)
[2016-04-26 05:10] LABS: ALBUMIN 1.4 g/dL (3.4-5.0); CALCIUM 7.3 mg/dL (8.5-10.1); CREATININE 4.4 mg/dL (0.6-1.3); MAGNESIUM 1.6 mg/dL (1.8-2.4); TOTAL BILIRUBIN 0.6 mg/dL (<0.1-1.0); TOTAL PROTEIN 4.4 g/dL (6.4-8.2)
[2016-04-26 05:35] LABS: ABSOLUTE NEUTROPHILS 31.1 thou/uL (1.4-8.2); NUCLEATED RBCS 3 /100WBC; TOTAL CELL COUNT 100; TOXIC GRANULATION 1+
[2016-04-26 08:44] VITALS: BP 116/49
[2016-04-26] MEDS ORDERED: KLOR-CON 1010 MEQ PO (11:38)
[2016-04-26] MEDS ORDERED: NORVASC 5 MG TAB5 MG PO (11:38)
[2016-04-26] MEDS ORDERED: LOTENSIN40 MG PO (11:39)
[2016-04-26] MEDS ORDERED: DEXTROAMPHETAMIN5 M2 PO (11:40)
[2016-04-26] MEDS ORDERED: METFORMIN HCL500 MG PO (11:40)
[2016-04-26] MEDS ORDERED: LEXAPRO20 MG PO (11:40)
[2016-04-26] MEDS ORDERED: EFFEXOR 5050 MG/1 T1 PO (11:41)
[2016-04-26] MEDS ORDERED: AMBIEN 5 MG TABL5 M1 PO (11:41)
[2016-04-26] MEDS ORDERED: LEVOTHYROXINE0.05 MG PO (11:42)
[2016-04-26 19:47] LABS: HEMOGLOBIN 8.5 gm/dL (12.0-15.0); MCHC 34.1 % (28.0-37.0); MCV 87.9 fL (80.0-100.0); PLATELET COUNT 135 thou/uL (150-400); RBC 2.85 mil/uL (4.20-5.00); RDW 13.7 % (10.5-14.5); WBC 30.3 thou/uL (4.0-11.0)
[2016-04-26 19:50] LABS: MANUAL DIFF YES
[2016-04-26 20:07] LABS: ABSOLUTE NEUTROPHILS 27.3 thou/uL (1.4-8.2); TOTAL CELL COUNT 100
[2016-04-26 20:17] VITALS: BP 121/51
[2016-04-26 22:11] VITALS: BP 121/91
[2016-04-26 23:00] VITALS: BP 99/46
[2016-04-27] VITALS (30 sets, daily range): BP systolic 78–128; BP diastolic 42–70
[2016-04-27 05:10] LABS: ABG SAMPLE TYPE ARTERIAL; BE(vivo) -4.4 mmol/L (-2 to +3); HCO3 19.4 mmol/L (22.0-26.0); LACTATE 1.47 mmol/L (0.5-2.0); O2(CT) 13.5 mL/dL (15.0-23.0); O2Hb 97.7 % (92.0-98.0); PCO2 31.3 mmHg (35.0-45.0); STICK SITE LINE; pH 7.411 (7.360-7.450); sO2 98.9 % (92.0-98.0); tCO2 20.4 mmol/L (24.0-30.0)
[2016-04-27 05:11] LABS: ABG COMMENT A/C MODE; TIDAL VOLUME 600 ml
[2016-04-27 05:35] LABS: HEMATOCRIT 24.6 % (37.0-47.0); HEMOGLOBIN 8.2 gm/dL (12.0-15.0); MCH 29.8 pg (26.0-34.0); MCHC 33.5 % (28.0-37.0); PLATELET COUNT 134 thou/uL (150-400); RBC 2.76 mil/uL (4.20-5.00); RDW 14.3 % (10.5-14.5); WBC 29.7 thou/uL (4.0-11.0)
[2016-04-27 05:43] LABS: APTT 43.2 Seconds (24.5-32.8); INR 1.1; PROTIME 11.4 Seconds (9.3-11.4)
[2016-04-27 06:06] LABS: MANUAL DIFF YES
[2016-04-27 06:11] LABS: ALBUMIN 1.2 g/dL (3.4-5.0); CALCIUM 7.6 mg/dL (8.5-10.1); CREATININE 5.4 mg/dL (0.6-1.3); MAGNESIUM 2.1 mg/dL (1.8-2.4); PHOSPHORUS 5.8 mg/dL (2.5-4.9); TOTAL BILIRUBIN 0.5 mg/dL (<0.1-1.0); TOTAL PROTEIN 4.4 g/dL (6.4-8.2)
[2016-04-27 08:10] LABS: ABSOLUTE NEUTROPHILS 28.8 thou/uL (1.4-8.2); TOTAL CELL COUNT 100
[2016-04-28 05:08] LABS: HEMATOCRIT 22.5 % (37.0-47.0); HEMOGLOBIN 7.6 gm/dL (12.0-15.0); MCH 29.6 pg (26.0-34.0); MCHC 33.6 % (28.0-37.0); MCV 87.9 fL (80.0-100.0); RBC 2.56 mil/uL (4.20-5.00)
[2016-04-28 05:19] LABS: MANUAL DIFF YES
[2016-04-28 05:25] LABS: ALBUMIN 1.2 g/dL (3.4-5.0); CALCIUM 7.4 mg/dL (8.5-10.1); CREATININE 3.3 mg/dL (0.6-1.3); MAGNESIUM 1.9 mg/dL (1.8-2.4); POTASSIUM 3.7 mmol/L (3.5-5.1); TOTAL BILIRUBIN 0.8 mg/dL (<0.1-1.0); TOTAL PROTEIN 4.4 g/dL (6.4-8.2)
[2016-04-28 05:38] LABS: ABG SAMPLE TYPE ARTERIAL; BE(vivo) 1.5 mmol/L (-2 to +3); HCO3 24.4 mmol/L (22.0-26.0); O2(CT) 11.5 mL/dL (15.0-23.0); O2Hb 97.6 % (92.0-98.0); PCO2 31.5 mmHg (35.0-45.0); PO2 119.3 mmHg (80.0-100.0); pH 7.507 (7.360-7.450); sO2 98.7 % (92.0-98.0); tCO2 25.4 mmol/L (24.0-30.0)
[2016-04-28 05:39] LABS: FIO2 30 %; STICK SITE LINE; TIDAL VOLUME 600 ml
[2016-04-28 05:55] LABS: ABSOLUTE NEUTROPHILS 18.7 thou/uL (1.4-8.2); METAMYELOCYTES 1 %; TOTAL CELL COUNT 100
[2016-04-28 05:56] LABS: PLATELET COUNT 92 thou/uL (150-400); PLATELET ESTIMATE DECREASED
[2016-04-28 11:23] LABS: ABG SAMPLE TYPE ARTERIAL; BE(vivo) 0.8 mmol/L (-2 to +3); HCO3 24.7 mmol/L (22.0-26.0); LACTATE 1.19 mmol/L (0.5-2.0); O2(CT) 11.3 mL/dL (15.0-23.0); O2Hb 97.2 % (92.0-98.0); PO2 123.7 mmHg (80.0-100.0); pH 7.454 (7.360-7.450); sO2 98.6 % (92.0-98.0); tCO2 25.8 mmol/L (24.0-30.0)
[2016-04-28 12:55] LABS: STICK SITE LINE; TIDAL VOLUME 500 ml
[2016-04-28 12:56] LABS: ABG COMMENT 1 HR POST VENT CHANG
[2016-04-28 18:07] LABS: ETHYLENE GLYCOL None Detected (None detected)
[2016-04-28 22:14] VITALS: BP 102/46
[2016-04-29 05:47] LABS: ABSOLUTE NEUTROPHILS 15.6 thou/uL (1.4-8.2); BASOPHILS 0.1 % (0.0-2.0); EOSINOPHILS 1.4 % (0.0-3.0); HEMATOCRIT 23.5 % (37.0-47.0); HEMOGLOBIN 7.8 gm/dL (12.0-15.0); LYMPHOCYTES 4.2 % (24.0-44.0); MCH 29.9 pg (26.0-34.0); MCHC 33.2 % (28.0-37.0); MONOCYTES 2.9 % (1.0-8.0); PLATELET COUNT 90 thou/uL (150-400); POLYS 91.4 % (36.0-66.0); RBC 2.61 mil/uL (4.20-5.00); RDW 14.3 % (10.5-14.5)
[2016-04-29 05:50] LABS: MANUAL DIFF NO
[2016-04-29 06:10] LABS: ALBUMIN 1.2 g/dL (3.4-5.0); CALCIUM 7.4 mg/dL (8.5-10.1); CREATININE 4.1 mg/dL (0.6-1.3); POTASSIUM 3.7 mmol/L (3.5-5.1); TOTAL BILIRUBIN 1.1 mg/dL (<0.1-1.0); TOTAL PROTEIN 4.7 g/dL (6.4-8.2)
[2016-04-29 15:37] LABS: ALBUMIN 1.2 g/dL (3.4-5.0); DIRECT BILIRUBIN 0.7 mg/dL (<0.1-0.3); TOTAL BILIRUBIN 1.1 mg/dL (<0.1-1.0); TOTAL PROTEIN 4.6 g/dL (6.4-8.2)
[2016-04-29 22:41] VITALS: BP 92/45
[2016-04-30] VITALS (19 sets, daily range): BP systolic 89–123; BP diastolic 40–57
[2016-04-30 05:02] LABS: PLATELET COUNT 86 thou/uL (150-400)
[2016-04-30 05:04] LABS: HEMATOCRIT 22.6 % (37.0-47.0); MCH 29.7 pg (26.0-34.0); MCHC 32.7 % (28.0-37.0); RBC 2.48 mil/uL (4.20-5.00); RDW 14.1 % (10.5-14.5)
[2016-04-30 05:17] LABS: HEMOGLOBIN 7.4 gm/dL (12.0-15.0); MANUAL DIFF YES
[2016-04-30 05:18] LABS: ALBUMIN 1.1 g/dL (3.4-5.0); CALCIUM 7.2 mg/dL (8.5-10.1); PHOSPHORUS 2.8 mg/dL (2.5-4.9); POTASSIUM 3.8 mmol/L (3.5-5.1)
[2016-04-30 05:19] LABS: CREATININE 2.6 mg/dL (0.6-1.3)
[2016-04-30 07:20] LABS: ABSOLUTE NEUTROPHILS 9.8 thou/uL (1.4-8.2); ANISOCYTOSIS SLIGHT; ATYPICAL LYMPHS 2 %; TOTAL CELL COUNT 100
[2016-04-30 07:21] LABS: POLYCHROMASIA OCCASIONAL
[2016-04-30 09:26] LABS: ABG SAMPLE TYPE ARTERIAL; BE(vivo) 1.6 mmol/L (-2 to +3); HCO3 25.5 mmol/L (22.0-26.0); LACTATE 1.18 mmol/L (0.5-2.0); O2(CT) 11.3 mL/dL (15.0-23.0); O2Hb 97.4 % (92.0-98.0); PCO2 36.9 mmHg (35.0-45.0); PO2 108.1 mmHg (80.0-100.0); pH 7.457 (7.360-7.450); sO2 98.2 % (92.0-98.0); tCO2 26.6 mmol/L (24.0-30.0)
[2016-04-30 09:27] LABS: ABG COMMENT CPAP X 1 HR; Pressure Support 5 cm H20; STICK SITE LINE
[2016-05-01] VITALS (78 sets, daily range): BP systolic 87–132; BP diastolic 33–71
[2016-05-01 04:53] LABS: HEMATOCRIT 22.2 % (37.0-47.0); HEMOGLOBIN 7.3 gm/dL (12.0-15.0); MCHC 32.7 % (28.0-37.0); WBC 10.7 thou/uL (4.0-11.0)
[2016-05-01 04:54] LABS: MCH 30.2 pg (26.0-34.0); MCV 92.5 fL (80.0-100.0); PLATELET COUNT 123 thou/uL (150-400); RDW 14.7 % (10.5-14.5)
[2016-05-01 05:00] LABS: MANUAL DIFF YES
[2016-05-01 05:12] LABS: CALCIUM 7.3 mg/dL (8.5-10.1); POTASSIUM 3.9 mmol/L (3.5-5.1); TOTAL BILIRUBIN 1.1 mg/dL (<0.1-1.0); TOTAL PROTEIN 4.5 g/dL (6.4-8.2)
[2016-05-01 05:15] LABS: CREATININE 3.7 mg/dL (0.6-1.3)
[2016-05-01 06:25] LABS: ABSOLUTE NEUTROPHILS 9.4 thou/uL (1.4-8.2); ANISOCYTOSIS SLIGHT; MACROCYTES SLIGHT; MYELOCYTES 2 %; POLYCHROMASIA OCCASIONAL; TOTAL CELL COUNT 100
[2016-05-01 16:42] LABS: ABG SAMPLE TYPE ARTERIAL; BE(vivo) 3.2 mmol/L (-2 to +3); HCO3 26.7 mmol/L (22.0-26.0); LACTATE 1.31 mmol/L (0.5-2.0); O2(CT) 14.1 mL/dL (15.0-23.0); O2Hb 95.7 % (92.0-98.0); PCO2 36.7 mmHg (35.0-45.0); PO2 82.7 mmHg (80.0-100.0); sO2 96.8 % (92.0-98.0); tCO2 27.8 mmol/L (24.0-30.0)
[2016-05-01 16:43] LABS: ABG COMMENT 1.5 HRS CPAP; Pressure Support 5 cm H20; STICK SITE R.BRACHIAL
[2016-05-02] VITALS (44 sets, daily range): BP systolic 84–150; BP diastolic 40–76
[2016-05-02 04:31] LABS: HEMATOCRIT 23.1 % (37.0-47.0); HEMOGLOBIN 7.6 gm/dL (12.0-15.0); MCH 29.6 pg (26.0-34.0); MCHC 32.8 % (28.0-37.0); MCV 90.1 fL (80.0-100.0); RBC 2.56 mil/uL (4.20-5.00); RDW 14.2 % (10.5-14.5); WBC 11.2 thou/uL (4.0-11.0)
[2016-05-02 04:40] LABS: PLATELET COUNT 202 thou/uL (150-400)
[2016-05-02 04:41] LABS: MANUAL DIFF YES
[2016-05-02 04:54] LABS: ALBUMIN 1.1 g/dL (3.4-5.0); CALCIUM 7.7 mg/dL (8.5-10.1); POTASSIUM 4.2 mmol/L (3.5-5.1); TOTAL BILIRUBIN 1.3 mg/dL (<0.1-1.0)
[2016-05-02 09:38] LABS: ABSOLUTE NEUTROPHILS 9.3 thou/uL (1.4-8.2); TOTAL CELL COUNT 100
[2016-05-03] VITALS (24 sets, daily range): BP systolic 93–127; BP diastolic 37–64
[2016-05-03 05:36] LABS: ALBUMIN 1.1 g/dL (3.4-5.0); CALCIUM 7.9 mg/dL (8.5-10.1); PHOSPHORUS 4.8 mg/dL (2.5-4.9); POTASSIUM 4.4 mmol/L (3.5-5.1)
[2016-05-03 05:39] LABS: CREATININE 4.1 mg/dL (0.6-1.3)
[2016-05-04] VITALS (25 sets, daily range): BP systolic 93–124; BP diastolic 43–94
[2016-05-04 05:07] LABS: HEMATOCRIT 23.6 % (37.0-47.0); HEMOGLOBIN 7.7 gm/dL (12.0-15.0); MCHC 32.4 % (28.0-37.0); MCV 92.4 fL (80.0-100.0); RBC 2.56 mil/uL (4.20-5.00); RDW 14.2 % (10.5-14.5); WBC 13.3 thou/uL (4.0-11.0)
[2016-05-04 05:21] LABS: ALBUMIN 1.1 g/dL (3.4-5.0); CALCIUM 7.9 mg/dL (8.5-10.1); PHOSPHORUS 5.1 mg/dL (2.5-4.9); POTASSIUM 4.4 mmol/L (3.5-5.1)
[2016-05-04 05:29] LABS: CREATININE 5.1 mg/dL (0.6-1.3)
[2016-05-04 05:33] LABS: MANUAL DIFF YES; PLATELET COUNT 341 thou/uL (150-400)
[2016-05-04 06:25] LABS: ABSOLUTE NEUTROPHILS 10.8 thou/uL (1.4-8.2); TOTAL CELL COUNT 100
[2016-05-05] VITALS (21 sets, daily range): BP systolic 99–141; BP diastolic 43–68
[2016-05-05 06:02] LABS: HEMATOCRIT 21.8 % (37.0-47.0); HEMOGLOBIN 7.4 gm/dL (12.0-15.0); MCH 30.8 pg (26.0-34.0); MCHC 33.8 % (28.0-37.0); MCV 91.1 fL (80.0-100.0); PLATELET COUNT 366 thou/uL (150-400); RBC 2.39 mil/uL (4.20-5.00); RDW 14.3 % (10.5-14.5); WBC 13.6 thou/uL (4.0-11.0)
[2016-05-05 06:13] LABS: MANUAL DIFF YES
[2016-05-05 06:26] LABS: ALBUMIN 1.1 g/dL (3.4-5.0); CALCIUM 7.9 mg/dL (8.5-10.1); POTASSIUM 4.1 mmol/L (3.5-5.1)
[2016-05-05 06:28] LABS: CREATININE 3.8 mg/dL (0.6-1.3)
[2016-05-05 08:58] LABS: ABSOLUTE NEUTROPHILS 12.2 thou/uL (1.4-8.2); PLATELET ESTIMATE NORMAL; TOTAL CELL COUNT 100
[2016-05-05 08:59] LABS: ANISOCYTOSIS 2+; HYPOCHROMASIA 1+
[2016-05-06 04:30] VITALS: BP 117/58
[2016-05-06 06:05] LABS: HEMATOCRIT 22.6 % (37.0-47.0); HEMOGLOBIN 7.1 gm/dL (12.0-15.0); MCH 29.4 pg (26.0-34.0); MCHC 31.5 % (28.0-37.0); MCV 93.2 fL (80.0-100.0); PLATELET COUNT 414 thou/uL (150-400); RBC 2.42 mil/uL (4.20-5.00); RDW 14.3 % (10.5-14.5); WBC 12.5 thou/uL (4.0-11.0)
[2016-05-06 06:18] LABS: MANUAL DIFF YES
[2016-05-06 06:40] LABS: ALBUMIN 1.2 g/dL (3.4-5.0); CALCIUM 8.5 mg/dL (8.5-10.1); MAGNESIUM 2.1 mg/dL (1.8-2.4); PHOSPHORUS 5.3 mg/dL (2.5-4.9); POTASSIUM 4.3 mmol/L (3.5-5.1); TOTAL BILIRUBIN 0.8 mg/dL (<0.1-1.0); TOTAL PROTEIN 5.7 g/dL (6.4-8.2)
[2016-05-06 06:42] LABS: CREATININE 5.1 mg/dL (0.6-1.3)
[2016-05-06 07:56] LABS: TOTAL CELL COUNT 100
[2016-05-06 08:32] VITALS: BP 116/56
[2016-05-06] MEDS ORDERED: MICONAZOLE NITR45 G1 TOP (15:03)
[2016-05-06] MEDS ORDERED: VANCOMYCIN100 MG/M1 PER TUBE (15:03)
[2016-05-06] MEDS ORDERED: LEVOTHYROXINE100 MC1 IV PUSH (15:03)
[2016-05-06] MEDS ORDERED: NOVOLOG100 UNIT/1 SUBQ (15:03)
[2016-05-06] MEDS ORDERED: CEFTRIAXON1 GM/50 ML IV (15:05)
[2016-05-06 16:10] VITALS: BP 101/34
[2016-05-06 17:00] VITALS: BP 95/39
[2016-05-06 19:56] VITALS: BP 149/61
[2016-05-06 23:57] VITALS: BP 125/59
[2016-05-07 03:42] VITALS: BP 117/62
[2016-05-07 04:49] LABS: HEMATOCRIT 23.1 % (37.0-47.0); HEMOGLOBIN 7.4 gm/dL (12.0-15.0); MCH 29.4 pg (26.0-34.0); MCHC 32.1 % (28.0-37.0); MCV 91.8 fL (80.0-100.0); PLATELET COUNT 434 thou/uL (150-400); RBC 2.52 mil/uL (4.20-5.00); RDW 13.9 % (10.5-14.5); WBC 17.7 thou/uL (4.0-11.0)
[2016-05-07 04:52] LABS: INR 1.1; PROTIME 11.1 Seconds (9.3-11.4)
[2016-05-07 04:58] LABS: MANUAL DIFF YES
[2016-05-07 05:22] LABS: ALBUMIN 1.3 g/dL (3.4-5.0); CALCIUM 7.9 mg/dL (8.5-10.1); POTASSIUM 4.1 mmol/L (3.5-5.1); TOTAL BILIRUBIN 0.9 mg/dL (<0.1-1.0)
[2016-05-07 05:27] LABS: CREATININE 3.5 mg/dL (0.6-1.3)
[2016-05-07 08:27] LABS: ABSOLUTE NEUTROPHILS 16.5 thou/uL (1.4-8.2); TOTAL CELL COUNT 100
[2016-05-07 08:29] LABS: ANISOCYTOSIS SLIGHT
[2016-05-07 08:52] VITALS: BP 119/66
[2016-05-07 09:03] VITALS: BP 119/66
[2016-05-07 09:45] VITALS: BP 119/66
[2016-05-07 16:38] VITALS: BP 119/65
[2016-05-09] MEDS ORDERED: HEPARIN 1,100 UNIT/1 SQ (11:57)
[2016-05-09] MEDS ORDERED: ZYVOX600 MG/300 IVPB (11:57)
[2016-05-09] MEDS ORDERED: FLAGYL500 MG IVPB (11:58)
[2016-05-09] MEDS ORDERED: DUONEB 2.5-0.5 M3 ML INH (11:58)
[2016-05-09] MEDS ORDERED: ACETAMINOPHEN325 M1 PER TUBE (11:59)
[2016-05-09] MEDS ORDERED: MSL20MG/ML IV PUSH (11:59)
[2016-05-21] MEDS ORDERED: DILAUDID1 MG/1 ML IV PUSH (12:58)
[2016-05-21] MEDS ORDERED: FLUCONAZOL200 MG/105 IVPB (13:59)
[2016-05-21] MEDS ORDERED: FAMOTIDINE20 MG/2 M2 IV PUSH (13:59)
[2016-05-21] MEDS ORDERED: MEROPENEM500 MG IV (13:59)
[2016-05-21] MEDS ORDERED: METRONIDAZOLE500 M5 IVPB (13:59)
[2016-05-29] MEDS ORDERED: REGLAN 10 MG TA10 MG IV (11:49)
[2016-05-29] MEDS ORDERED: PROTONIX40 M1 IV (11:50)
[2016-06-03] MEDS ORDERED: FLUCONAZOL200 MG/105 IVPB (12:03)
[2016-06-03] MEDS ORDERED: METRO IV 5500 MG/100 IVPB (12:04)
[2016-06-03] MEDS ORDERED: MEROPENEM-500 MG/50 IVPB (12:06)
[2016-06-03] MEDS ORDERED: LUBRICANT EYE1 EACH OP (12:07)
[2016-06-03] MEDS ORDERED: ZYVOX600 MG/300 IVPB (12:07)
[2016-06-03] MEDS ORDERED: FLUSH FLUSH (12:08)
[2016-06-03] MEDS ORDERED: FEVERALL650 MG RECTAL (12:09)
[2016-06-03] MEDS ORDERED: DIPHENHYDRAM50 MG/M2 IV (12:10)
[2016-06-03] MEDS ORDERED: MICONAZOLE5 GM TOP (12:11)
[2016-06-03] MEDS ORDERED: SILVADENE20 GM TOP (12:11)
[2016-06-03] MEDS ORDERED: DUONEB 2.5-0.5 M3 ML INH (12:12)
[2016-06-03] MEDS ORDERED: HEPARIN SO5000 UNIT2 SUBQ (12:14)
[2016-06-11] MEDS ORDERED: MAG-AL PLUS SUS30 ML PO (13:40)
[2016-06-11] MEDS ORDERED: CARAFATE 11 GM/10 M1 PER TUBE (13:40)
[2016-06-11] MEDS ORDERED: FUROSEMIDE20 MG/2 ML IV PUSH (13:40)
[2016-06-11] MEDS ORDERED: MEROPENEM-500 MG/50 IVPB (13:40)
== END 2016-05-07 17:35 | DRG 870 ==
LOC: ER 12:44 → ICU 14:10 → EROBS 14:10 → ICU 15:28 → 4E 05-05 18:01
PROVIDERS: Emergency Medicine; Hospitalist; Internal Medicine; Internal Medicine Endocrinology, Diabetes & Metabolism; Internal Medicine Gastroenterology; Internal Medicine Nephrology; Internal Medicine Pulmonary Disease
PROC: 5A1D60Z (ICD-10-PCS; 2016-04-27)
PROC: 5A1955Z Respiratory Ventilation, Greater than 96 Consecutive Hours (ICD-10-PCS; principal; 2016-04-29)
PROC: B548ZZA Ultrasonography of Superior Vena Cava, Guidance (ICD-10-PCS; 2016-05-07)
PROC: 02HV33Z Insertion of Infusion Device into Superior Vena Cava, Percutaneous Approach (ICD-10-PCS; 2016-05-07)
PROC: B5181ZA Fluoroscopy of Superior Vena Cava using Low Osmolar Contrast, Guidance (ICD-10-PCS; 2016-05-07)
DX: A41.9 Sepsis, unspecified organism (principal); E43 Unspecified severe protein-calorie malnutrition; J96.01 Acute respiratory failure with hypoxia; G92 Toxic encephalopathy; R65.21 Severe sepsis with septic shock; K72.00 Acute and subacute hepatic failure without coma; E10.10 Type 1 diabetes mellitus with ketoacidosis without coma; N17.9 Acute kidney failure, unspecified; K92.0 Hematemesis; M62.82 Rhabdomyolysis; N39.0 Urinary tract infection, site not specified; J98.11 Atelectasis; A04.7 Enterocolitis due to Clostridium difficile; Z68.41 Body mass index [BMI] 40.0-44.9, adult; A09 Infectious gastroenteritis and colitis, unspecified; E03.9 Hypothyroidism, unspecified; E87.5 Hyperkalemia; D64.9 Anemia, unspecified; B96.20 Unspecified Escherichia coli [E. coli] as the cause of diseases classified elsewhere; R10.811 Right upper quadrant abdominal tenderness; R41.0 Disorientation, unspecified; L89.90 Pressure ulcer of unspecified site, unspecified stage; F32.9 Major depressive disorder, single episode, unspecified; Z79.899 Other long term (current) drug therapy; Z90.49 Acquired absence of other specified parts of digestive tract; Z86.74 Personal history of sudden cardiac arrest; Z99.2 Dependence on renal dialysis; Z23 Encounter for immunization
CPT/HCPCS: 10078; 10783; 27000; 32100; 32110; 85079

== ENCOUNTER 2016-07-09 09:29 | Inpatient (IN) | payer OTHER ==
[~2016-07-09] VITALS: Ht 162.6 cm; Wt 119.7 kg
--- NOTE | ~2016-07-09 | HC ---
[facility] [place] [address] CONSULTATION Name: EZIO CHE Room #: 239-P ADM IN M.R.#: [id number] Admission: 11/09/16 Attend Phys: Brandin Douglas MD Discharge: Date of : 52 Report #: [id number] THIS REPORT FOR: //name// CC: Harvey Ardon REASON FOR CONSULTATION: Low urine output. REASON FOR ADMISSION: Postoperative. HISTORY OF PRESENT ILLNESS: The patient is not able to provide me with the history as she is currently intubated in the intensive care unit. She is well known to me actually from previous admissions. She is a known case of ulcerative colitis, status post colectomy and colostomy 30 years ago. She has had numerous hospitalizations between our facility, [facility]. She previously had perforated bowel that was managed by initially interventional radiology procedure, drainage and then required multiple surgeries. 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 She ended up with a colostomy. She required dialysis for some time; however, her renal function improved and she settled her creatinine at 1.6. Apparently, the patient was in the OR yesterday, where she had a very prolonged procedure. The details of those are in charts. She did not do well post extubation and was hypotensive. She was moved to the ICU after receiving some boluses of fluids, sodium bicarbonate. Urine output had been scanty. I was asked to evaluate because of acute kidney injury with a creatinine up to 1.6, an anion gap acidosis and a pH of 7.2. Her lactate has been going up to 5.2 and this is down to 4.4. PAST MEDICAL HISTORY: 1. Ulcerative colitis. 2. Acute kidney injury, requiring dialysis. 3. Diabetes mellitus. 4. Remote history of sepsis and septic shock with C. diff. MEDICATIONS: 1. Pantoprazole. 2. Fentanyl. 3. Insulin. 4. TPN. SOCIAL HISTORY: Unable to obtain given the patient's current status. FAMILY HISTORY: Unable to obtain given the patient's mental status. REVIEW OF SYSTEMS: The patient is not able to provide us with the review of systems. [facility] [address] [place] [address] CONSULTATION Name: EZIO CHE Room #: 239-P [facility] IN [facility].#: [id number] Admission: 11/09/16 Attend Phys: Brandin Douglas MD Discharge: Date of : 52 Report #: [id number] PHYSICAL EXAMINATION: GENERAL: She is intubated, currently on pressors. VITAL SIGNS: Pulse rate is 102, respiratory rate 28. HEAD AND NECK: No jugular venous distention. ET tube. CHEST: Decreased air entry bilaterally. CARDIOVASCULAR: Tachycardic, with no rub. ABDOMEN: Numerous drains with midline incision. LOWER EXTREMITIES: No edema. LABORATORY DATA: Laboratory values reviewed. White blood cell count is up to 43,000. A pH is 7.2. No urine. C. diff pending. Potassium is 3.2. Magnesium is 1.3. Liver enzymes are elevated. IMAGES: Reviewed. ASSESSMENT, IMPRESSION AND PLAN: 1. Septic shock. 2. Postoperative status. 3. Acute kidney injury. 4. Anuria. 5. Hypokalemia. 6. Respiratory failure. 7. Hypertension. 8. Initiate the appropriate septic workup. 9. Bolus with IV fluids. 10. Switch to Levophed. 11. Extremely situation. She had required hemodialysis in the past. We will continue to support right now and decide about renal replacement management in the next few hours. <ELECTRONICALLY SIGNED> By: Joy Vera MD 11/12/16 0830 0807 1109 Joy Vera MD /nt
--- NOTE | ~2016-07-09 | HC ---
[facility] [place] [address] CONSULTATION Name: EZIO CHE Room #: 239-P ADM IN M.R.#: [id number] Admission: 11/09/16 Attend Phys: Brandin Douglas MD Discharge: Date of : 52 Report #: [id number] THIS REPORT FOR: //name// CC: Harvey Ardon REASON FOR CONSULTATION: I was asked to evaluate concerning septic shock. 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 She had had recent hospitalization for the above issue. Yesterday underwent surgical repair of her fistula and postoperatively failed extubation and developed septic shock. Dr. Harvey Toney and Dr. Susan Shipman performed an exploratory laparotomy with segmental small bowel resection and ileostomy creation with lysis of adhesions. She had resection of enterocutaneous fistula with debridement of necrotic abdominal wall wound. She also underwent a right salpingo-oophorectomy and placement of gastrostomy tube. Postoperatively, she has remained hypothermic. Blood pressure has required vasopressors. She has received over 7 liters of fluid and only put out about 75 mL of urine output. She remains on the ventilator 60% FiO2. She was awake. She has central venous catheters in place, CVP was running 7. MARQUIS drained with moderate amount of serosanguineous output. REVIEW OF SYSTEMS: In addition to the above, she has a right IJ catheter, a right radial art line and a left upper extremity PICC. Indwelling Soni catheter and MARQUIS drains as noted. ALLERGIES: PENICILLIN. MEDICATIONS: As noted on her MAR including ciprofloxacin and metronidazole. PAST MEDICAL HISTORY, FAMILY HISTORY, SOCIAL HISTORY: Unchanged from previous consultation from infectious disease's as well as her current H and P. It is noted that she was on oral vancomycin prior to her admission. She does have a history of ulcerative colitis and C. difficile colitis. PHYSICAL EXAMINATION: VITAL SIGNS: Temperature 95.6, heart rate 102, blood pressure 112/46. GENERAL: She was arousable. Could follow simple commands. She was edematous. HEENT: Unremarkable other than endotracheal tube placement. Right IJ catheter unremarkable. Left upper extremity PICC unremarkable. Right wrist art line unremarkable. CHEST: Coarse bilaterally. HEART: Regular, without murmur. ABDOMEN: Diffusely tender. A Prevena wound dressing [place] [address] CONSULTATION Name: EZIO CHE Room #: 239-P [facility] IN [facility]#: [id number] Admission: 11/09/16 Attend Phys: Brandin Douglas MD Discharge: Date of : 52 Report #: [id number] unremarkable. EXTREMITIES: Unremarkable. NEUROLOGIC: Nonfocal. LABORATORY STUDIES: Hemoglobin 7, WBC 45,000 with 12% bands, platelet count 454,000. Sodium 145, potassium 3.2, bicarbonate 13, creatinine 1.6, alkaline phosphatase 121, ALT 103, albumin 1.7. Chest x-ray had bibasilar atelectasis changes. Blood cultures are pending. IMPRESSION: Septic shock following extensive abdominal surgery. With this, she has acute renal failure, respiratory failure, metabolic acidosis. Her previous cultures had grown multiple drug-resistant organisms. She has a history of Clostridium difficile colitis. She has a history of ulcerative colitis. RECOMMENDATION: We will continue vancomycin, meropenem and ciprofloxacin adjusted for her renal failure. PLAN: We will monitor her stool output. Nephrology has seen the patient and is assisting in her resuscitation. We will adjust her antibiotics according to her renal function. Obtain cultures of blood, urine and sputum. Continue with full ICU support and sepsis care. <ELECTRONICALLY SIGNED> By: Price Arias MD 11/10/16 1653 [id number] [id number] Price Arias MD /nt
--- NOTE | ~2016-07-09 | HC ---
[facility] [place] [address] CONSULTATION Name: EZIO CHE Room #: 239-P ADM IN M.R.#: [id number] Admission: 11/09/16 Attend Phys: Brandin Douglas MD Discharge: Date of : 52 Report #: [id number] THIS REPORT FOR: //name// CC: Harvey Ardon DATE OF SERVICE: 11/10/2016 PERSONAL PHYSICIAN: Brandin Douglas MD CHIEF COMPLAINT: Decubitus ulcers. HISTORY OF PRESENT ILLNESS: This is a 66-year-old white female who is status post prolonged anterior abdominal surgery secondary to initially ulcerative colitis with a colostomy 30 years ago and then, the patient developed multiple enterocutaneous fistulas, which we repaired yesterday. We have followed this patient in the past for decubitus ulcers that were over her bilateral posterior suprailiac crest as well as a stage 2 decubitus ulcer of the sacrococcygeal region. We have been asked to assist in the care of these at this time now that she is back in the hospital. Currently, the patient is intubated and sedated in the ICU and is unable to give any history or answer any questions. PAST MEDICAL HISTORY: Significant for ulcerative colitis, acute kidney injury, now requiring hemodialysis, diabetes mellitus. CURRENT MEDICATIONS: Include fentanyl, insulin, TPN and pantoprazole. ALLERGIES: AMOXICILLIN. SOCIAL HISTORY: The patient most recently has been in a care facility. FAMILY HISTORY AND REVIEW OF SYSTEMS: Unobtainable because the patient is intubated and sedated. PHYSICAL EXAMINATION: VITAL SIGNS: T-max 36.1, pulse 112, respirations 28. GENERAL: This is an intubated and sedated white female who is on a ventilator, will open her eyes to voice, is not able to communicate. HEENT: Normocephalic, atraumatic. Mucous membranes are dry. Oral, endotracheal tube is in place. NECK: Supple, without JVD. ABDOMEN: Showed a Prevena VAC to be in place and functioning well. The ileostomy is in place and functioning well. BACK: Shows 2 posterior superior iliac crest ulcerations, which are clean and granulating and have minimal to no necrotic tissue. There is a slight amount of [facility] [address] [place] [address] CONSULTATION Name: EZIO CHE Room #: 239-P [facility] IN .R.#: [id number] Admission: 11/09/16 Attend Phys: Brandin Douglas MD Discharge: Date of : 52 Report #: [id number] slough noted. There is serosanguineous drainage noted without significant odor. Periulcer itself is otherwise intact without erythema, warmth or signs of cellulitis. Evaluation of sacrococcygeal region reveals stage 2 pressure ulcer just to the right of the coccyx along the right superior buttock region, the rest of the gluteal and perineal area has a fungal rash, which appears to be resolving. EXTREMITIES: The patient has limited movement of extremities, but the patient is sedated at this time. Bilateral heels are intact. NEUROLOGIC: The patient once again awakes to voice, but is sedated. LABORATORY VALUES: White count 45.1, hemoglobin 7.0. Electrolytes: Potassium is 3.2, BUN 52, creatinine 1.6, albumin is 1.7. IMPRESSION: 1. Bilateral superior and posterior iliac crest, decubitus ulcer stage 4 -- overall stable. 2. Status post exploratory laparotomy segmental small bowel resection x 2 and ileostomy creation and lysis of adhesions as well as resection of enterocutaneous fistula, diabetes mellitus, acute renal failure, history of ulcerative colitis, generalized debility. 3. Severe protein calorie malnutrition. 4. Stage 2 right superior gluteal decubitus ulcer. PLAN: At this time, we will use Dakin's quarter strength solution wet to dry dressings into the superior iliac crest ulcerations, cover with ABD and had to change once daily. We used barrier cream over the sacrococcygeal area, which will be mixed with antifungal cream as well. We will have the patient on low air loss mattress and be turned every 2 hours, make sure we watch the heels closely for any sign of pressure changes. The patient is already on TPN. We will continue TPN and maximize her nutritional supplementation. Prevena VAC has been placed over her abdominal wall. We will leave the Prevena VAC in place for approximately 7 days functioning well. We will continue to follow the patient while she is here in the hospital. <ELECTRONICALLY SIGNED> By: Jacob Wright MD 11/13/16 1443 1737 1834 Jacob Wright MD /nt
--- NOTE | ~2016-07-09 | DEA ---
[facility] [place] [address] SUMMARY Name: EZIO CHE Room #: 239-P [facility] IN ..#: [id number] Admission: 11/09/16 Attend Phys: Brandin Douglas MD Discharge: 11/13/16 Date of : 52 Report #: [id number] THIS REPORT FOR: //name// CC: [facility] DATE OF SERVICE: 11/13/2016 ADMITTING PHYSICIAN: Brandin Douglas MD with Internal Medicine. DATE OF : 11/13/2016. PRINCIPAL ADMITTING DIAGNOSES: Small-bowel obstruction, chronic abdominal pain, history of ulcerative colitis with previous subtotal colectomy 30 years ago, chronic nausea and emesis and inability to tolerate oral intake, protein-calorie malnutrition, hypertension, diabetes mellitus, previous Clostridium difficile enteritis, chronic enterocutaneous fistulae, previous intra-abdominal sepsis with peritonitis, previous acute on chronic renal failure, previous need for hemodialysis. FINAL DIAGNOSES UPON PATIENT'S : Small-bowel obstruction, chronic abdominal pain, history of ulcerative colitis with previous subtotal colectomy 30 years ago, chronic nausea and emesis and inability to tolerate oral intake, protein-calorie malnutrition, hypertension, diabetes mellitus, previous Clostridium difficile enteritis, chronic enterocutaneous fistulae, previous intra-abdominal sepsis with peritonitis, previous acute on chronic renal failure, previous need for hemodialysis, acute respiratory failure, acute respiratory distress syndrome, acute renal failure, severe metabolic and respiratory acidosis, postoperative hypotension, status post ileostomy placement and ultimately multisystem organ failure. CONSULTATIONS: Pulmonary Medicine, Dr. Douglas Mcclendon; Nephrology, Dr. Joy Vera; Dr. Price Arias with Infectious Disease; Dr. Jacob Wright with wound care; Dr. Harvey Toney with General Surgery as the patient was admitted to Internal Medicine or hospitalist service postoperative given her medical complexity and Dr. Eusebio Estrada with Interventional Radiology. BRIEF HISTORY: The patient is a 66-year-old female patient well known to multiple specialties at [facility] as she had been admitted emergently at [facility] in early 2017 approximately 04/25/2016. At that time, she was noted to be in multisystem organ failure with peritonitis, acute renal failure, respiratory failure, septic shock, and underwent code blue resuscitation with intubation and critical care management in the ICU setting for an extended period of time. When she was finally stable enough to undergo CT scan of the abdomen and pelvis, she was noted to have Clostridium difficile enteritis and was noted to have shown a perforation of a portion of her small bowel. Of note, regarding her past history, she had previously undergone [facility] [address] [place] [address] SUMMARY Name: EZIO CHE Room #: 239-P [facility] IN M.R.#: [id number] Admission: 11/09/16 Attend Phys: Brandin Douglas MD Discharge: 11/13/16 Date of : 52 Report #: [id number] resection of almost her entire colon for ulcerative colitis approximately 30 years ago. She had had chronic issues with diarrhea and inability to control her bowel movements as well as with recurrent issues of Clostridium difficile infections. Ultimately, the patient was treated with antibiotic therapy, bowel rest and percutaneous drainage of multiple abscesses in the abdominal cavity in order to avoid a major operation, which likely would have been fatal given her condition upon her initial presentation. She was subsequently transferred to long-term acute care facility where she continued to be treated with conservative therapy with total parenteral nutrition, hemodialysis for a time, although she was able to be weaned off hemodialysis and her renal function recovered to a large degree. Multiple studies were performed on her GI tract, which was obviously complex given her history. She was noted to have a perforation at some point likely in the mid small bowel, but also had some passage of stool contents and still had bowel movements from the rectum, which would indicate that she did not have a complete bowel obstruction. Multiple attempts were made to advance the patient's diet, but these were ultimately unsuccessful and the patient would end up with severe nausea and vomiting and required nasogastric decompression. The patient also developed decubitus ulcers on her bilateral flanks and these were debrided in the operating room by myself. At one point, these were noted to be healing appropriately. Her abdominal pain was persistent, but had improved of late and she had been tapered down significantly on her narcotic load which was initially quite substantial but of late had been minimized. After approximately 6-7 months of this process, detailed discussion were held with multiple specialties on multiple occasions with the patient, her family and with the various specialists including Gastroenterology, Infectious Disease, multiple general surgeons, Pulmonary Critical Care Medicine, hospitalist medicine as far as the best approach for this patient. At this point this past October as it was noted that the patient had severe limitations to improving her quality of life, which had come to a plateau, it was decided by the patient to undergo exploratory laparotomy and an attempt to resect the area of her small bowel which appeared to be chronically dilated and nonfunctional. This was consistent with a segment that had likely perforated in the past and had been treated with those percutaneous drains and there also appeared to be an area of stricturing near that region based upon a recent small bowel follow through x-ray study. Risks and benefits which were many were discussed in detail with the patient and family and it was discussed that the patient may not be able to ultimately survive such an extensive operation given her complex history. The decision was ultimately made to proceed; however, given her inability to eat or drink even ice water without developing nausea and vomiting soon thereafter. It was also felt that given 6 months of conservative therapy with total parenteral nutrition that her nutritional status had been optimized and that another several months of waiting would likely not improve her nutritional status substantially. Her prealbumin level had actually improved significantly over the past several months. [facility] [address] [place] [address] SUMMARY Name: EZIO CHE Room #: 239-P [facility] IN [facility].#: [id number] Admission: 11/09/16 Attend Phys: Brandin Douglas MD Discharge: 11/13/16 Date of : 52 Report #: [id number] HOSPITAL COURSE: The patient was admitted on 11/09/2016 and underwent exploratory laparotomy, segmental small bowel resection x 2, end ileostomy placement, lysis of adhesions x 150 minutes, resection of the enterocutaneous fistula, right salpingo-oophorectomy, debridement of necrotic abdominal wall wound with enterocutaneous fistula tract, placement of 24-Jamaican gastrostomy tube for decompression versus feeding, placement of Prevena external negative pressure therapy device by myself and Dr. Shipman with General Surgery. Her operation was notably difficult given her above-mentioned prior operations and recent intraabdominal abscess after Clostridium difficile enteritis and perforation. These operations itself went technically well and it was encouraging that the patient had been left with approximately 230 cm length of small bowel, which would be more than enough for the patient's nutritional needs assuming that she was ultimately able to be readvanced to a regular diet. An end ileostomy was placed and the prior described enterocutaneous fistula was resected including that section of defunctionalized small bowel and the stricture, which appeared to be just distal to this. Please refer to the operative note for greater detail regarding the operation itself. Postoperative, the patient was initially extubated in the operating room and then reintubated on an emergent basis. She subsequently was resuscitated for a period of time in the postoperative care unit by anesthesia staff. Multiple central access lines were placed and the patient was noted to be quite critically ill. She was therefore watched in the intensive care unit postoperative remaining intubated and sedated. The patient was noted to be severely acidotic, both metabolic and respiratory sources apparently, she required vasopressor support. Her urine output was noted to decrease down to complete anuria with complete renal failure. She was placed on continuous renal reperfusion therapy by Nephrology. It should also be noted that postoperative, immediately consults were placed for Pulmonary Medicine and Nephrology. Infectious Disease was also consulted as well as wound care. Extensive efforts were performed in order to resuscitate the patient and to improve her respiratory failure and renal failure. Initially, the patient appeared to be improving and was able to follow commands. Her drains that had been placed intraoperative began to clear up as far as the fluid produced from more sanguineous to more serosanguineous appearance indicating that ongoing hemorrhage was not an issue. She was subsequently weaned off Levophed vasopressor support and showed some scant urine output. The patient continued to require CRRT. Gastrostomy tube was eventually placed to dependent drainage that had been ordered immediately postoperative. This decompressed the GI tract appropriately and there did not appear to be any ongoing small-bowel obstruction as an issue based upon its output. Ileostomy appeared functional with appropriate early output of liquid stool also giving indication that the bowel appeared functional. On postoperative day #3, it was noted early in the morning that the patient's gastrostomy tube had become dislodged somehow. Upon rounding on the patient by myself at 0600, the cuff on that gastrostomy tube was checked and was noted to be in working condition. It was never explained [address] [address] SUMMARY Name: EZIO CHE Room #: 239-[facility]#: [id number] Admission: 11/09/16 Attend Phys: Brandin Douglas MD Discharge: 11/13/16 Date of : 52 Report #: [id number] how this cuff could have been taken down or become deflated on its own; however, the tube was unable to be replaced at the bedside. Interventional Radiology was therefore consulted and percutaneous gastrostomy tube was performed by Dr. Eusebio Estrada with successful replacement of an 18-Jamaican gastrostomy tube. This would allow decompression of the GI tract as well as the administration of medications and tube feeds if necessary. Following this initially, the patient showed improved acid base status and it was suggested that weaning from the ventilator may be possible; however, over the next 24 hours, the patient developed worsening oxygen requirement and x-ray findings were consistent with acute respiratory distress syndrome. Pulmonary Medicine discussed the patient's case in detail with the patient's family. By 11/13/2016 at approximately noon, it was noted that the patient was requiring 80% FIO2 with diffuse infiltrates and that she was still requiring CRRT and vasopressor support. Chances of meaningful recovery were noted to be extremely poor at that time. Given the patient's wishes to avoid extensive interventions and further suffering, and based upon discussion with the family it was deemed appropriate to change the patient's status to comfort care measures. Once this had occurred, in a short period of time, the patient did undergo cardiac arrest and she was noted by Critical Care Medical team to have . Time of was reported at 15:25 on 11/13/2016. For more detail of the hospital course and laboratory findings, please refer to the electronic medical record. <ELECTRONICALLY SIGNED> By: Harvey Toney MD 12/03/16 1527 1534 1819 Harvey Toney MD /nt
--- NOTE | ~2016-07-09 | S ---
[facility] [place] [address] SURGICAL PATH RPT PROCEDURE Name: WHITNEY ZAMARRIPA Room #: 239-P ADM IN M.R.#: [id number] Admission: 11/09/16 Date of : 52 Discharge: Report #: [id number] Path Case #: [id number] PATHOLOGY REPORT COLLECTION DATE: 11/09/2016 RECEIVED DATE: 11/09/2016 SUBMITTING PHYS: Dr. Harvey Toney OTHER PHYS: Dr. Susan Ardon SPECIMEN(S) RECEIVED: A.Right fallopian tube and right ovary B.Small bowel C.Distal bowel resection D.Fistula tract * * * * * * * * * * * * FINAL DIAGNOSIS: A. Ovary and fallopian tube, Right, right salpingo-oophorectomy: - Serous cystadenoma, measuring 2.1 cm; negative for borderline features or malignancy. - Completely excised. - Remaining ovarian parenchyma with physiologic changes. - Fallopian tube with mild chronic inflammation. B. Small intestine, "small bowel' resection: - Surface ulceration and active inflammation as well as serositis, history of inflammatory bowel disease. - Negative for dysplasia or malignancy. - Acute inflammation present at proximal margin. C. Small intestine, distal bowel, resection: - Active inflammation, ulceration and lymphoid aggregates as well as serositis, history of inflammatory bowel disease. - Negative for dysplasia or malignancy. - Acute inflammation present at margins. D. Fistula tract, excision: - Marked acute inflammation. COMMENT: Parts B and C: Examination shows exophytic ulceration, marked acute inflammation as well as loss of crypts, consistent with the long standing inflammatory process. Few lymphoid aggregates are present. There are no granulomata or viral inclusions present. Findings are consistent with the provided history of inflammatory bowel disease. There is no dysplasia or malignancy present. PATHOLOGIST: Lucie Archuleta M.D. REPORT ELECTRONICALLY SIGNED BY: Lucie Archuleta M.D. [address] [address] SURGICAL PATH RPT PROCEDURE Name: WHITNEY ZAMARRIPA Room #: 239-P [facility]#: [id number] Admission: 11/09/16 Date of : 52 Discharge: Report #: [id number] Path Case #: [id number] DATE/TIME: 11/11/2016 16:25 * * * * * * * * * * * * GROSS PATHOLOGY: A. The specimen is received in formalin labeled "Whitney Zamarripa, right fallopian tube and ovary". Received is a 21 g adnexal specimen consisting of a non-fimbriated fallopian tube measuring 8.5 cm in length by up to 1.8 cm in diameter attached to a 2.8 x 1.8 x 1.3 cm ovary. There is a large cyst present measuring 2.1 cm filled with clear fluid. Sectioning through the ovary reveals pale jordan, normal ovarian stroma. Specimen is submitted representatively in cassettes A1 and A2. B. The specimen is received in formalin labeled "Whitney Zamarripa, small bowel, long suture proximal". Received is an oriented segment of small bowel measuring 20.1 cm in length and ranging in diameter from 1.7 to 2.9 cm. Both margins are stapled closed and sutures present at one margin designating this as the proximal aspect. The serosal surface is pink-jordan to beck-jordan appearance with a large amount of overlying adhesions. The attached mesenteric fat measures up to 5.2 cm in thickness. The specimen is up along the antimesenteric line to reveal light jordan mucosa with normal architectural folds. No distinct nodules or lesions are noted grossly. The specimen is submitted representatively as follows: B1 proximal margin B2 distal margin B3 route sales representative cross-sections of mucosa. C. The specimen is received in formalin labeled "Whitney Zamarripa, distal bowel resection". Received is a segment of bowel, in which the attached mesenteric fat is severely adhesed onto itself, measuring 52.4 cm in length and ranging in diameter from 2.1 to 2.9 cm. One margin is stapled closed and the opposite margin is opened. The serosal surface is pink-jordan to dusky beck-jordan in appearance. The attached mesenteric fat is shaggy in appearance with overlying adhesions and measures up to 4.0 cm in thickness. The specimen is opened along the antimesenteric line to reveal light jordan to pink-jordan mucosa with moderate architectural folding, however, some areas are flattened in appearance. No distinct nodules or lesions are noted grossly. The specimen is submitted representatively as follows: C1 stapled margin C2 opened margin C3-C4 route sales representative cross-sections of mucosa. D. The specimen is received in formalin labeled "Whitney Zamarripa, fistula tract". Received are multiple segments of white-jordan to pink-jordan soft tissue measuring 4.9 x 3.8 x 1.5 cm in aggregate dimensions. The specimen is submitted representatively in cassette D1. (CAA; 11/10/2016) [facility] [address] [place] [address] SURGICAL PATH RPT PROCEDURE Name: WHITNEY ZAMARRIPA Room #: 239-P ADM IN M.R.#: [id number] Admission: 11/09/16 Date of : 52 Discharge: Report #: [id number] Path Case #: [id number] CLINICAL HISTORY: Small bowel obstruction, persistent INITIAL CPT CODE(S): A; 21045 B; 87634 C; 56684 D; 93028 Professional services performed by [facility] at [facility] [address], [place] [address] Technical services performed by [facility] at [address] [place] [address], [place] [address]. [facility] [address] [place] [address] PHONE: [phone] DIRECTOR: Tushar Barron M.D. * * * END OF REPORT * * *
--- NOTE | ~2016-07-09 | O ---
[facility] [place] [place] [address] OPERATIVE REPORT Name: EZIO CHE Room #: 239-P ADM IN M.R.#: [id number] Admission: 11/09/16 Attend Phys: Brandin Douglas MD Discharge: Date of : 52 Report #: [id number] THIS REPORT FOR: //name// CC: Harvey Ardon DATE OF SERVICE: 11/09/2016 PREOPERATIVE DIAGNOSES: 1. Chronic ileus versus partial small bowel obstruction, history of ulcerative colitis versus Crohn's, status post subtotal colectomy 30 years prior. 2. Previous Clostridium difficile enteritis with perforation and peritonitis with intra-abdominal abscesses. 3. Previous septic shock. 4. Previous multi-system organ failure. 5. Previous treatment of intra-abdominal abscesses with percutaneous drainage by interventional radiology. 6. 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 7. Chronic nausea and emesis with inability to tolerate oral intake. 8. Chronic pain. 9. Previous renal failure requiring hemodialysis for an extended period. 10. Previous gastrointestinal bleeding of unclear source. 11. Diabetes mellitus. 12. Previous diabetic 2 acidosis. 13. Protein-calorie malnutrition with long-term total parenteral nutrition requirement. POSTOPERATIVE DIAGNOSES: 1. Chronic ileus versus partial small bowel obstruction, history of ulcerative colitis versus Crohn's, status post subtotal colectomy 30 years prior. 2. Previous Clostridium difficile enteritis with perforation and peritonitis with intra-abdominal abscesses. 3. Previous septic shock. 4. Previous multi-system organ failure. 5. Previous treatment of intra-abdominal abscesses with percutaneous drainage by interventional radiology. 6. 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 7. Chronic nausea and emesis with inability to tolerate oral intake. 8. Chronic pain. 9. Previous renal failure requiring hemodialysis for an extended period. 10. Previous gastrointestinal bleeding of unclear source. 11. Diabetes mellitus. 12. Previous diabetic 2 acidosis. 13. Protein-calorie malnutrition with long-term total parenteral nutrition requirement. 14. Status post excision and debridement of enterocutaneous fistula and abdominal wall necrotic wound. SURGEON: Harvey Toney MD. GARNETT MACHINE OPERATOR: Susan Shipman MD. PROCEDURES: 1. Exploratory laparotomy. 2. Segmental small bowel resection x 2. 3. End-ileostomy creation. 4. Lysis of adhesions x 150 minutes. 5. Resection of enterocutaneous fistula. 6. Right salpingo-oophorectomy. 7. Debridement of necrotic abdominal wall wound along with enterocutaneous fistula tract. 8. Placement of a 24-Omani gastrostomy tube. 9. Placement of Prevena external negative pressure therapy device. 10. Modifier [address] [place] [address] OPERATIVE REPORT Name: CHINEDUTOMIEZIO K Room #: 239-P [facility] IN M.R.#: [id number] Admission: 11/09/16 Attend Phys: Brandin Douglas MD Discharge: Date of : 52 Report #: [id number] to intense intra-abdominal adhesions, difficult anatomy from multiple prior intra-abdominal infections and abscesses as well as multiple prior abdominal operations with prior subtotal colectomy 30 years ago. ANESTHESIA: General endotracheal anesthesia. ESTIMATED BLOOD LOSS: 200 mL. SPECIMENS TO PATHOLOGY: 1. Small bowel resection with a long stitch proximal. 2. Distal small bowel resection of several adhesed loops. 3. Right fallopian tube and ovary. 4. Enterocutaneous fistula tract. DRAINS PLACED: The 19-Omani Jose drains exiting the right upper abdomen, right lower quadrant, and left lower quadrant to widely drain the intra-abdominal cavity. A 20-Omani gastrostomy tube placed. Enterocutaneous fistula site packed with wet-to-dry gauze in the right lateral abdomen. The patient was initially extubated and then re-intubated by anesthesia and was taken to the intensive care unit in critical condition after placement of a central line and arterial line by anesthesia team in the postoperative care unit. Prevena external negative therapy pressure device was placed over the midline incision. INDICATION FOR PROCEDURE: The patient is a very pleasant 66-year-old female known to the general surgery service with an extensive complex medical and surgical history. She was first seen by our service in April of this year after presenting with multi-system organ failure, which apparently had stemmed from peritonitis from intra-abdominal sepsis from Clostridium difficile enteritis with perforation and intra-abdominal abscess formation. She had undergone code blue resuscitation at that time and was critically ill, treated with hemodialysis, broad-spectrum antibiotics, and percutaneous drainage of her intra-abdominal abscesses at that time. Over a long period, the patient was able to be extubated and was able to be taken off dialysis once her renal function had improved. She was ultimately able to be transferred to a long-term acute care facility and has been brought back for multiple admissions and treatments with interventional radiology of her intra-abdominal abscesses to keep these from becoming septic once again. Throughout this time, the patient has had a persistent picture of ileus versus small bowel obstruction with persistent nausea and vomiting after most any oral intake. She has continued to pass some liquid stool from the rectum and has also now developed an enterocutaneous fistula in the right lateral abdominal wall, which functions as an ostomy. This is the site where previous percutaneous drains had been in place, but which had been sealed over along that tract by her own inflammatory response. Her pain has significantly improved, although she continued to have upper abdominal pain postprandial. Multiple medical regimens had been attempted with the assistance of gastroenterology service and she has been followed by GI and ID extensively throughout this course. At this point, after [facility] [address] [place] [address] OPERATIVE REPORT Name: EZIO CHE Room #: 239-P ADM IN M.R.#: [id number] Admission: 11/09/16 Attend Phys: Brandin Doulgas MD Discharge: Date of : 52 Report #: [id number] discussion with multiple services and with the patient and family that the patient was not progressing and was still unable to tolerate any oral intake. Of note, a recent small bowel follow-through study at [facility] showed an area of likely stricture in the right upper to mid abdomen, which corresponded to the area where she likely had perforated in the past. There was a dilated loop of small bowel just proximal to this, which appeared to be to some degree nonfunctional, which contained old debris and contrast material. Of late, there was no sign of any ongoing active intra-abdominal infection. It was also noted that the patient continued to require TPN now approximately 6-1/2 months following her initial presentation. It should also be noted that the patient had a distant history of subtotal colectomy with ileorectal anastomosis and possible J-pouch formation approximately 30 years ago. She has had GI issues since that time and has had issues with persistent fecal incontinence. It was discussed at this time that given her ongoing need for TPN and inability to discharge from residential facility or long-term acute care that surgical intervention to attempt to reestablish throughput of her GI tract to allow oral intake has become indicated as all other medical and conservative measures have failed to get the patient to progress beyond this point. Ultimately, the patient and family decided to pursue surgical intervention based upon all these findings and the above-mentioned details. It was again discussed that this was clearly a high-risk operation given her comorbidities that have been well documented as well as her complex medical and surgical history. Risks of the operation included bowel injury, wound infection, wound breakdown with possible fistula formation, wound dehiscence, damage to other anatomic structures, which likely would be scarred together from all the intra-abdominal infectious processes over the past 6 months, possible long-term ICU care needs, possible need for long-term intubation, possible need for feeding tube and tracheotomy depending upon her postoperative progression, possible need for multiple operations, and many other unforeseen possible complications could occur. Ultimately, despite all of these risks, the patient did choose to proceed with exploratory laparotomy with lysis of adhesions, resection of small bowel, possible ileostomy formation versus re-anastomosis, depending upon the location of the partially obstructed segment in the enterocutaneous fistula. Written informed consent was obtained. DESCRIPTION OF PROCEDURE: The patient was brought to the operating room and placed in a supine position. Time-out was taken to verify the patient's identity and to plan the procedure. SCDs were in place on the lower extremities bilaterally. Preoperative antibiotics were administered. Anesthesia was induced. The patient was intubated. Abdomen was sterilely prepped and draped in standard fashion. The right lateral abdominal enterocutaneous fistulae were closed with [id number] 2-0 nylon sutures to prevent drainage onto the sterile field during the procedure. Midline celiotomy was created with a 10-blade and carried out sharply through the skin and subcutaneous tissue. Dissection with electrocautery was performed down to the level of fascia, which was grasped near the umbilicus with Joycelyn clamps and [facility] [address] [place] [address] OPERATIVE REPORT Name: EZIO CHE Room #: 239-P [facility] IN Krishan.#: [id number] Admission: 11/09/16 Attend Phys: Brandin Douglas MD Discharge: Date of : 52 Report #: [id number] retracted anterior. The fascia and peritoneum was then carefully opened with Metzenbaum scissors. The fascia and peritoneum were then opened along the entire midline incision. There was noted to be intense adhesion formation as expected containing the entirety of the small bowel and colon. This was meticulously taken down using sharp dissection with Metzenbaum scissors as well as electrocautery when available for 150 minutes. This allowed visualization of the small bowel, which was traced from the ligament of Treitz distal. The initial one-half of the small bowel appeared viable and only mildly dilated. More distally, as the small bowel entered the right upper quadrant, there was an area of significant dilatation of the small bowel consistent with the previous imaging studies. There was a stricture just distal to this and this appeared to near the location of the site of the enterocutaneous fistula source. This area was matted together to such a degree that upon trying to separate this apart, it was unclear the pattern of connections. Therefore, the more distal part of the small bowel was also carefully dissected out and again, the inflammatory response from the prior abscesses that had healed, had created a mass of small bowel loops matted together in an indistinguishable pattern. There did not appear to be much throughput of material through this more decompressed portion of the bowel. The EC fistula was traced out toward the lateral abdominal wall on the right side, which tracked more inferior and lateral. This corresponded to a site of necrotic tissue in the abdominal wall, which was explored digitally and then was debrided sharply, full thickness. The EC fistula tract was passed off for specimen analysis. The distal small bowel had developed several enterotomies upon attempting to dissect this free from the intense thick adhesive coating. This was noted to be not significantly viable as it continued to be matted together in such a way that likely very little material would be able to pass through this region. The small bowel was traced down to the rectum where an ileorectal anastomosis was identified and what appeared to be a J-pouch. This was transected just proximal to the rectum and the distal small bowel loops and ileum were passed off as one specimen labeled distal small bowel resection and more proximal small bowel resection at the area of the stricture had been resected using a linear cutting stapler and was passed off as small bowel resection long stitch proximal. The remaining small bowel was examined from the ligament of Treitz distal and it was measured that 230 cm of small bowel remained, which was sufficient for a patient's nutritional needs in an almost all cases. The decision was made at that time to create and end-ileostomy, which would obviate the issue of her chronic fecal incontinence and would allow for better control of spillage of liquid stool and improve her wound care capabilities, but should allow for progression toward oral nutrition. It should also be noted that in the right lower abdomen in the pelvis where the small bowel loops had been matted together, there was a tissue, which was dissected away, which was ultimately found to be right ovary and fallopian tube that had become intensely scarred to this mass of tissue. This was also resected and was passed off as right salpingo-oophorectomy specimen. The remaining small bowel was run from the ligament of Treitz distal multiple times and there was one site of serosal [address] [address] OPERATIVE REPORT Name: EZIO CHE Room #: 239-P [facility] IN M.R.#: [id number] Admission: 11/09/16 Attend Phys: Brandin Douglas MD Discharge: Date of : 52 Report #: [id number] injury, which was reinforced with 3-0 PDS [id number] suture oriented longitudinally. A site was then selected for the end-ileostomy creation in the right upper abdomen as this is where the small bowel loop had poly in situ. Care was taken to ensure that this was not twisted in anyway. A quarter-sized circular skin incision was created externally and electrocautery was then utilized to dissect down to the fascia and rectus abdominis. A 2-fingerbreadth incision was made with a cruciate pattern through the rectus using electrocautery with care to protect the viscera on the underside. Once this was created, a [place] was inserted through the opening and the distal small bowel, which likely was proximal ileum, was grasped with a [place] and pulled up through the ileostomy opening. This was left in place with approximately 3-4 cm externalized above the skin surface. The remaining viscera were again examined and the intra-abdominal cavity was irrigated with copious warm sterile saline. The abdominal wall where the fistula tract had exited was again debrided with electrocautery and material was passed off for specimen analysis as EC fistula. No obvious active infection or abscesses were identified and therefore no cultures were taken. The intra-abdominal cavity was again irrigated with multiple liters of warm sterile saline and hemostasis was meticulously verified throughout the abdominal cavity. The 19-Omani Jose drains were brought into the field and one was placed in the right lower quadrant, which tracked up and to the right up near the ileostomy. The fistula tract was examined and there were 2 openings externally. One tract was debrided sharply and with electrocautery and this tract was used to place a 19-Omani Jose drain, which tracked to the right lower quadrant and across into the pelvis and left lower quadrant. This drain was secured in place with a 2-0 nylon suture. The remaining lateral EC fistula site was debrided sharply and with electrocautery and it was packed with wet-to-dry gauze after hemostasis had been verified. A third 19-Omani Jose drain was placed in the left lower quadrant, which passed across the pelvis and up into the mid abdomen for further drainage of the intra-abdominal space. At this point, a gastrostomy tube was placed, which would allow the patient to be vented from a GI perspective should persistent nausea and vomiting become an issue postoperative. Two pursestring sutures of 2-0 PDS were placed in the gastric body wall. The stomach was held in place with a Christina. An incision was made in the left upper quadrant abdominal wall at the site that had been chosen for gastrostomy tube placement. A burlisher was passed from intra-abdominal through this opening to grasp a 24-Omani gastrostomy tube that was pulled into the intra-abdominal cavity. The inflating balloon was checked and was noted to be functional. An incision was made in the gastric body wall with electrocautery and a Joycelyn clamp was utilized to open this to ensure that the gastric lumen had been entered. The 24-Omani gastrostomy tube was then placed within the body of the stomach and the balloon was inflated. This was flushed and noted to be working properly. The 2 pursestring sutures were cinched down and secured in place up against the anterior abdominal wall with Josr technique. The gastrostomy tube was secured externally with interrupted 2-0 nylon x 3 at the level of the flange. Intra-abdominal cavity was again [address] [address] OPERATIVE REPORT Name: EZIO CHE Room #: 239-P [facility] IN M.R.#: [id number] Admission: 11/09/16 Attend Phys: Brandin Douglas MD Discharge: Date of : 52 Report #: [id number] irrigated and suctioned clear. At this point, the viscera were all placed back within the abdominal cavity and there was noted to be easy approximation of the fascial edges without undue tension. The midline celiotomy was then closed with running #1 PDS suture looped x 2 and these were adjoined near the umbilicus. The wound was again irrigated with copious warm sterile saline and suctioned clear. The skin was then reapproximated using skin gilda. The 19-Omani Jose drains were secured to the anterior abdominal wall skin with interrupted 2-0 nylon sutures at each site. The midline wound was then covered with sterile towels and the ileostomy was matured. This had been anchored at 4 points to the rectus fascia. [place] sutures were utilized to anchor the ileostomy stoma at multiple points around the dermis at the exit site. The ileostomy stoma was then opened using a curved [place] scissor after the wound edges were protected with sterile towels. The mucosa was then affixed to the skin circumferentially at the exit site using running 3-0 PDS suture as well as interrupted 3-0 PDS suture. Once a water-tight seal was well visualized at that matured ostomy site, digital palpation showed that the ileostomy was widely patent down deep to the fascial opening. This produced an immediate return of liquid brown stool material. An ileostomy collection apparatus was then cut to proper size and shape and this was adhesed to the anterior abdominal wall skin with care to protect the skin completely around the stoma, collection bag was applied as well. Sterile dressings were applied over each of the drain sites and the previously described EC fistula site that had been debrided was covered with a sterile dressing. The midline wound was then covered with a Prevena external negative pressure therapy device and this was connected to suction and noted to hold seal well. The gastrostomy tube was vented and noted to produce gastric content liquid appropriately. A Soni catheter was left in place. There was noted to have been a good clear urine output of 200-300 mL of urine according to anesthesia report verbally during the case. At this point, the case was ended. All instrumentation had been extracted and accounted for. All counts were correct per nursing report. Please refer to the anesthetic record regarding further description of the fluids. Per anesthesia report, there was 2400 mL of crystalloid and 250 mL of 0.5% albumin administered. The patient was taken to the postoperative care unit for resuscitation and central line placement and then on to the intensive care unit for further close monitoring. Please refer to anesthesia record for details. Condition at the end of the procedure was critically ill. <ELECTRONICALLY SIGNED> By: Harvey Toney MD 11/12/16 0617 [id number] Harvey Toney MD /nt
--- NOTE | ~2016-07-09 | HC ---
[facility] [place] [address] CONSULTATION Name: EZIO CHE Room #: 239-P [facility]..#: [id number] Admission: 11/09/16 Attend Phys: Brandin Douglas MD Discharge: 11/13/16 Date of : 52 Report #: [id number] THIS REPORT FOR: //name// CC: Harvey Ardon DATE OF SERVICE: 11/09/2016 REFERRING PROVIDER: Harvey Toney MD REASON FOR CONSULTATION: Postoperative respiratory failure. HISTORY OF PRESENT ILLNESS: Our group was asked by Dr. Wilson of anesthesia and Dr. Toney to evaluate this patient in the recovery room. The patient was seen extensively in the recovery room area as well as in the ICU. The patient unable to give any history, was seen postoperatively while on the mechanical ventilatory support. This 66-year-old woman recently hospitalized and then hospitalized previous to that about 6 months ago with extensive abdominal processes and associated sepsis, admitted at this time for planned surgical adhesiolysis and repair of enterocutaneous fistulae. The patient had an extensive 4 hour surgery by report, again complicated by extensive adhesions. The patient did not do well post-procedure after extubation, was subsequently reintubated and seen in the recovery room. The patient at that time developed some hypotension requiring infusion of albumin and IV fluids. The patient received 2 liters of fluid and albumin in the operating room during the case. The patient's urine output seemed reasonable of 1 liter during the case and immediately postoperatively it was recorded, a total of 1 liter between the OR and the recovery area. Some sanguinous fluid was noted from MARQUIS drains. Again, patient was resuscitated. Initial arterial blood gas showed a pH of 7.01 with a mixed respiratory metabolic acidosis. The patient received bicarbonate and again IV fluid resuscitation in addition to a change in mechanical ventilatory support to increase minute volume. The patient's blood pressure improved and had been transferred to the ICU for further management. Right IJ central venous catheter was placed by anesthesia service and right radial arterial line was placed by myself to assist with management. ALLERGIES: AMOXICILLIN. PAST MEDICAL HISTORY: 1. Prior history abdominal sepsis and Clostridium difficile colitis. 2. History of ulcerative colitis. 3. History of hypertension. 4. Diabetes mellitus. 5. History of acute renal failure requiring hemodialysis for a period of time [address] [address] CONSULTATION Name: EZIO CHE Room #: 239-P [facility] IN ..#: [id number] Admission: 11/09/16 Attend Phys: Brandin Douglas MD Discharge: 11/13/16 Date of : 52 Report #: [id number] on initial presentation with septic shock in April of this year. 6. Multiple abdominal enterocutaneous fistulae. OUTPATIENT MEDICATIONS: Include pantoprazole, acetaminophen p.r.n., DuoNeb q.i.d., oral vancomycin, oral sodium bicarbonate, fentanyl patch, Carafate, Ambien, insulin sliding scale. The patient also remains on TPN. SOCIAL HISTORY: Unobtainable from the patient at this time. FAMILY HISTORY: Unobtainable from the patient at this time. REVIEW OF SYSTEMS: Otherwise unobtainable from the patient at this time due to her current status. PHYSICAL EXAMINATION: VITAL SIGNS: Afebrile, pulse 100 and regular, respiratory rate 24 set on the ventilator, blood pressure 126/68. GENERAL: This is an obese, elderly woman, poorly responsive on mechanical ventilatory support. ENT: Reveals endotracheal tube in place. No dental loss of significance noted. No oropharyngeal lesions noted. Oropharynx is somewhat dry. NECK: Right IJ triple lumen catheter in place. LUNGS: Relatively clear. CARDIOVASCULAR: Heart was regular. No murmurs appreciated. ABDOMEN: A Prevena device appears to be in place. Ostomy noted with no significant bowel sounds appreciated. Multiple MARQUIS drains noted with somewhat sanguineous fluid. EXTREMITIES: Revealed good pulses, 2+ upper and lower extremities with some lower extremity edema noted. INTEGUMENT: Somewhat pallid. LABORATORY DATA: Pending at this time except for arterial blood gas, which immediately postoperatively revealed pH 7.01, pCO2 of 47, pO2 of 91, bicarbonate of 12, lactate was 2.34, this was on assist control. FiO2 of 60%, tidal volume 550, PEEP of 5. Additional laboratories are pending. Chest x-ray revealed clear lung covarrubias and triple lumen catheter tip was in the superior vena cava, endotracheal tube in good position. IMPRESSION: 1. Status post extensive abdominal surgery as described in other notations elsewhere. 2. Postoperative respiratory failure. 3. Mixed respiratory metabolic acidosis. 4. Postoperative hypotension. 5. Ileostomy. 6. Diabetes mellitus. [address] [address] CONSULTATION Name: EZIO CHE Room #: 239-P [facility] IN M.R.#: [id number] Admission: 11/09/16 Attend Phys: Brandin Douglas MD Discharge: 11/13/16 Date of : 52 Report #: [id number] 7. Hypertension. SUGGESTIONS: 1. Continue ongoing resuscitation. 2. Woo-Synephrine to assist with blood pressure management. 3. Continue with broad-spectrum antimicrobials, would ask infectious disease service to reevaluate. 4. Prior history of Clostridium difficile colitis. 5. ICU care. 6. See orders for additional details. Total critical care time 45 minutes, not including procedures. <ELECTRONICALLY SIGNED> By: Douglas Mcclendon MD 11/23/16 1122 1743 0208 Douglas Mcclendon MD /nt
[~2016-07-09 09:29] MED LIST: ACETAMINOPHEN325 M1 PER TUBE; AMBIEN 5 MG TABL5 M1 PO; CARAFATE 11 GM/10 M1 PER TUBE; CEFTRIAXON1 GM/50 ML IV; DEXTROAMPHETAMIN5 M2 PO; DILAUDID1 MG/1 ML IV PUSH; DIPHENHYDRAM50 MG/M2 IV; DUONEB 2.5-0.5 M3 ML INH; EFFEXOR 5050 MG/1 T1 PO; FAMOTIDINE20 MG/2 M2 IV PUSH; FEVERALL650 MG RECTAL; FLAGYL500 MG IVPB; FLUCONAZOL200 MG/105 IVPB; FLUSH FLUSH; FUROSEMIDE20 MG/2 ML IV PUSH; HEPARIN 1,100 UNIT/1 SQ; HEPARIN SO5000 UNIT2 SUBQ; KLOR-CON 1010 MEQ PO; LEVOTHYROXINE0.05 MG PO; LEVOTHYROXINE100 MC1 IV PUSH; LEXAPRO20 MG PO; LOTENSIN40 MG PO; LUBRICANT EYE1 EACH OP; MAG-AL PLUS SUS30 ML PO; MEROPENEM-500 MG/50 IVPB; MEROPENEM500 MG IV; METFORMIN HCL500 MG PO; METRO IV 5500 MG/100 IVPB; METRONIDAZOLE500 M5 IVPB; MICONAZOLE NITR45 G1 TOP; MICONAZOLE5 GM TOP; MSL20MG/ML IV PUSH; NORVASC 5 MG TAB5 MG PO; NOVOLOG100 UNIT/1 SUBQ; PROTONIX40 M1 IV; REGLAN 10 MG TA10 MG IV; SILVADENE20 GM TOP; VANCOMYCIN100 MG/M1 PER TUBE; ZYVOX600 MG/300 IVPB
[2016-08-05] MEDS ORDERED: FLUCONAZOL200 MG/105 IVPB (09:36)
[2016-08-05] MEDS ORDERED: [UNRECOGNIZED DRUG - OTHER] PO (09:37)
[2016-08-05] MEDS ORDERED: AMBIEN 5 MG TABL5 M1 PO (09:38)
[2016-08-05] MEDS ORDERED: ONDANSETRON HCL4 M1 IV (09:39)
[2016-08-18] MEDS ORDERED: FLAGYL500 MG IV (05:47)
[2016-08-18] MEDS ORDERED: [UNRECOGNIZED DRUG - MIXTURE] IV (05:48)
[2016-08-18] MEDS ORDERED: METOCLOPRAM5 MG/1 M2 IV (06:02)
[2016-08-18] MEDS ORDERED: VANCOMYCIN100 MG/ML PO (06:04)
[2016-08-18] MEDS ORDERED: NYSTATIN 1100000 U/M PO (06:04)
[2016-08-18] MEDS ORDERED: ZYVOX600 MG/300 IV (06:05)
[2016-08-18] MEDS ORDERED: MAXIPIME2 GM IV (06:05)
[2016-08-18] MEDS ORDERED: ANTACID650 MG PO (06:06)
[2016-08-18] MEDS ORDERED: PEPCID20 MG IV (06:07)
[2016-08-18] MEDS ORDERED: FENTANYL PA25 MCG/HR TOP (06:07)
[2016-08-18] MEDS ORDERED: EFFEXOR 5050 MG/1 T1 PO (06:07)
[2016-08-18] MEDS ORDERED: LANTISEPTIC OI113 GM TOP (06:08)
[2016-08-18] MEDS ORDERED: NYAMYC15 GM TOP (06:09)
[2016-08-18] MEDS ORDERED: EUCERIN CREME57 GM TOP (06:09)
[2016-08-18] MEDS ORDERED: DAKIN'S473 M1 TOP (06:09)
[2016-08-18] MEDS ORDERED: LEXAPRO 10 MG T10 M1 PO (06:10)
[2016-08-18] MEDS ORDERED: CARAFATE 11 GM/10 M1 PER TUBE (06:10)
[2016-08-18] MEDS ORDERED: LORAZEPAM 22 MG/1 ML IV (06:11)
[2016-08-18] MEDS ORDERED: PHENERGAN 25 MG25 M1 IV (06:11)
[2016-10-28] MEDS ORDERED: FENTANYL PA25 MCG/HR TOP (11:35)
[2016-11-05] MEDS ORDERED: PROBIOTIC1 EAC1 PO (14:47)
[2016-11-05] MEDS ORDERED: LEXAPRO20 MG PO (14:48)
[2016-11-05] MEDS ORDERED: PEPCID20 MG PO (14:49)
[2016-11-05] MEDS ORDERED: FENTANYL PA12 MCG/H1 TP (14:50)
[2016-11-05] MEDS ORDERED: NOVOLOG100 UNIT/1 SUBQ (14:53)
[2016-11-05] MEDS ORDERED: ATIVAN0.5 MG PO (14:55)
[2016-11-05] MEDS ORDERED: MILK OF MA2400 MG/10 PO (14:56)
[2016-11-05] MEDS ORDERED: NYSTATIN 1100000 U/M SWISH&SPIT (14:57)
[2016-11-05] MEDS ORDERED: ONDANSETRON HCL4 M2 PO (14:58)
[2016-11-05] MEDS ORDERED: PANTOPRAZOLE SO40 M1 PO (14:59)
[2016-11-05] MEDS ORDERED: PHENERGAN 25 MG25 M1 PO (15:00)
[2016-11-05] MEDS ORDERED: FLUSH IV PUSH (15:02)
[2016-11-05] MEDS ORDERED: DAKIN'S473 M1 TOP (15:03)
[2016-11-05] MEDS ORDERED: CARAFATE 1 GM TA1 G1 PO (15:03)
[2016-11-05] MEDS ORDERED: SECURA PROTECTI50 GM TOP (15:04)
[2016-11-05] MEDS ORDERED: EFFEXOR 5050 MG/1 T1 PO (15:04)
[2016-11-05] MEDS ORDERED: AMBIEN 5 MG TABL5 M1 PO (15:05)
[2016-11-05] MEDS ORDERED: TPN IV ×2 (15:16→15:22)
[2016-11-05] MEDS ORDERED: LIPIDS IV (15:22)
[2016-11-09 09:29] VITALS: BP 146/83
[2016-11-09 15:14] LABS: ABG SAMPLE TYPE ARTERIAL; BE(vivo) -18.7 mmol/L (-2 to +3); HCO3 11.5 mmol/L (22.0-26.0); LACTATE 2.34 mmol/L (0.5-2.0); O2(CT) 12.5 mL/dL (15.0-23.0); O2Hb 93.3 % (92.0-98.0); PCO2 46.8 mmHg (35.0-45.0); PO2 90.8 mmHg (80.0-100.0); sO2 91.9 % (92.0-98.0)
[2016-11-09 15:50] LABS: STICK SITE R.RADIAL; TIDAL VOLUME 550 ml; pH 7.009 (7.360-7.450)
[2016-11-09 19:03] LABS: ABG SAMPLE TYPE ARTERIAL; BE(vivo) -16.5 mmol/L (-2 to +3); HCO3 11.9 mmol/L (22.0-26.0); O2(CT) 11.2 mL/dL (15.0-23.0); O2Hb 90.9 % (92.0-98.0); PCO2 38.7 mmHg (35.0-45.0); PO2 73.1 mmHg (80.0-100.0); tCO2 13.1 mmol/L (24.0-30.0)
[2016-11-09 19:04] LABS: LACTATE 4.84 mmol/L (0.5-2.0); STICK SITE L.RADIAL; TIDAL VOLUME 550 ml; pH 7.107 (7.360-7.450)
[2016-11-09 20:01] LABS: HEMATOCRIT 23.4 % (37.0-47.0); HEMOGLOBIN 7.3 gm/dL (12.0-15.0); MCH 29.8 pg (26.0-34.0); MCHC 31.2 g/dL (28.0-37.0); MCV 95.6 fL (80.0-100.0); PLATELET COUNT 481 thou/uL (150-400); RBC 2.44 mil/uL (4.20-5.00); RDW 15.6 % (10.5-14.5); WBC 34.3 thou/uL (4.0-11.0)
[2016-11-09 20:02] LABS: MANUAL DIFF YES
[2016-11-09 20:07] LABS: CALCIUM 7.6 mg/dL (8.5-10.1); CREATININE 1.6 mg/dL (0.6-1.0); POTASSIUM 3.5 mmol/L (3.5-5.1)
[2016-11-09 20:09] LABS: INR 1.2; PROTIME 11.9 Seconds (9.3-11.4)
[2016-11-09 20:13] LABS: TOTAL BILIRUBIN 0.2 mg/dL (<0.1-1.0); TOTAL PROTEIN 4.3 g/dL (6.4-8.2)
[2016-11-09 20:51] LABS: ABSOLUTE NEUTROPHILS 32.9 thou/uL (1.4-8.2); METAMYELOCYTES 3 %; TOTAL CELL COUNT 100
[2016-11-09 20:52] LABS: ANISOCYTOSIS SLIGHT; MACROCYTES SLIGHT; POLYCHROMASIA OCCASIONAL
[2016-11-09 22:59] LABS: ABG SAMPLE TYPE ARTERIAL; BE(vivo) -15.5 mmol/L (-2 to +3); O2(CT) 10.9 mL/dL (15.0-23.0); O2Hb 96.6 % (92.0-98.0); PCO2 35.2 mmHg (35.0-45.0); PO2 130.4 mmHg (80.0-100.0); sO2 97.8 % (92.0-98.0); tCO2 13.1 mmol/L (24.0-30.0)
[2016-11-09 23:00] LABS: LACTATE 5.27 mmol/L (0.5-2.0); STICK SITE L.RADIAL; TIDAL VOLUME 550 ml; pH 7.152 (7.360-7.450)
[2016-11-10] VITALS (8 sets, daily range): BP systolic 100–119; BP diastolic 34–52
[2016-11-10 05:17] LABS: ABG SAMPLE TYPE ARTERIAL; HCO3 12.3 mmol/L (22.0-26.0); LACTATE 4.41 mmol/L (0.5-2.0); O2(CT) 10.9 mL/dL (15.0-23.0); PCO2 30.1 mmHg (35.0-45.0); PO2 134.3 mmHg (80.0-100.0); sO2 98.2 % (92.0-98.0); tCO2 13.2 mmol/L (24.0-30.0)
[2016-11-10 05:18] LABS: STICK SITE L.BRACHIAL; TIDAL VOLUME 550 ml
[2016-11-10 05:19] LABS: RDW 15.5 % (10.5-14.5)
[2016-11-10 05:22] LABS: HEMATOCRIT 21.8 % (37.0-47.0); MCH 30.4 pg (26.0-34.0); MCHC 32.2 g/dL (28.0-37.0); MCV 94.6 fL (80.0-100.0); PLATELET COUNT 454 thou/uL (150-400); RBC 2.31 mil/uL (4.20-5.00)
[2016-11-10 05:39] LABS: MANUAL DIFF YES
[2016-11-10 05:41] LABS: WBC 45.1 thou/uL (4.0-11.0)
[2016-11-10 05:46] LABS: ALBUMIN 1.7 g/dL (3.4-5.0); CALCIUM 7.3 mg/dL (8.5-10.1); CREATININE 1.6 mg/dL (0.6-1.0); MAGNESIUM 1.3 mg/dL (1.8-2.4); PHOSPHORUS 3.1 mg/dL (2.5-4.9); POTASSIUM 3.2 mmol/L (3.5-5.1); TOTAL BILIRUBIN 0.2 mg/dL (<0.1-1.0); TOTAL PROTEIN 4.2 g/dL (6.4-8.2)
[2016-11-10 07:14] LABS: METAMYELOCYTES 1 %; TOTAL CELL COUNT 100
[2016-11-10 07:15] LABS: ABSOLUTE NEUTROPHILS 43.3 thou/uL (1.4-8.2)
[2016-11-10 07:16] LABS: ANISOCYTOSIS 1+
[2016-11-10 10:33] LABS: URINE BILIRUBIN 1+ (Negative); URINE BLOOD 1+ (Negative); URINE COLOR YELLOW; URINE GLUCOSE-RANDOM* TRACE (Negative); URINE KETONES NEGATIVE (Negative); URINE LEUKOCYTES-REFLEX 2+ (Negative); URINE PROTEIN (DIPSTICK) 1+ (Negative); URINE SPECIFIC GRAVITY 1.025 (1.003-1.035); URINE UROBILINOGEN 0.2 E.U./dl (0.2-1.0)
[2016-11-10 10:41] LABS: ICTOTEST (BILI CONFIRMATORY) Negative (Negative)
[2016-11-10 10:42] LABS: AMORPHOUS URATES Few /LPF (None Seen); CALCIUM OXALATE 0-3 Few /LPF (None Seen); CASTS None Seen /LPF (None Seen); SQUAMOUS None Seen /LPF (0-3); URINE RBC 0-2 Rare /HPF (0-2); YEAST-REFLEX Present (None Seen)
[2016-11-10 16:28] LABS: ABG SAMPLE TYPE ARTERIAL; BE(vivo) -15.3 mmol/L (-2 to +3); HCO3 10.8 mmol/L (22.0-26.0); LACTATE 2.96 mmol/L (0.5-2.0); O2Hb 96.9 % (92.0-98.0); PCO2 26.6 mmHg (35.0-45.0); PO2 128.5 mmHg (80.0-100.0); sO2 98.1 % (92.0-98.0); tCO2 11.6 mmol/L (24.0-30.0)
[2016-11-10 16:30] LABS: STICK SITE ALINE; pH 7.227 (7.360-7.450)
[2016-11-10 16:31] LABS: TIDAL VOLUME 550 ml
[2016-11-11] VITALS (33 sets, daily range): BP systolic 90–126; BP diastolic 27–80
[2016-11-11 03:39] LABS: HEMOGLOBIN 8.8 gm/dL (12.0-15.0); MCH 30.3 pg (26.0-34.0)
[2016-11-11 03:41] LABS: HEMATOCRIT 27.1 % (37.0-47.0); MCHC 32.6 g/dL (28.0-37.0); MCV 92.9 fL (80.0-100.0); PLATELET COUNT 384 thou/uL (150-400); RBC 2.92 mil/uL (4.20-5.00); RDW 15.3 % (10.5-14.5)
[2016-11-11 03:43] LABS: WBC 41.1 thou/uL (4.0-11.0)
[2016-11-11 03:44] LABS: MANUAL DIFF YES
[2016-11-11 03:47] LABS: ALBUMIN 1.7 g/dL (3.4-5.0); CALCIUM 7.6 mg/dL (8.5-10.1); CREATININE 2.1 mg/dL (0.6-1.0); MAGNESIUM 1.7 mg/dL (1.8-2.4); POTASSIUM 3.3 mmol/L (3.5-5.1); TOTAL BILIRUBIN 0.3 mg/dL (<0.1-1.0); TOTAL PROTEIN 4.3 g/dL (6.4-8.2)
[2016-11-11 05:06] LABS: ABG SAMPLE TYPE ARTERIAL; BE(vivo) -15.5 mmol/L (-2 to +3); HCO3 10.4 mmol/L (22.0-26.0); LACTATE 2.16 mmol/L (0.5-2.0); O2(CT) 13.7 mL/dL (15.0-23.0); O2Hb 97.4 % (92.0-98.0); PCO2 25.2 mmHg (35.0-45.0); PO2 140.6 mmHg (80.0-100.0); sO2 98.4 % (92.0-98.0); tCO2 11.2 mmol/L (24.0-30.0)
[2016-11-11 05:07] LABS: STICK SITE LINE
[2016-11-11 05:08] LABS: TIDAL VOLUME 550 ml
[2016-11-11 05:09] LABS: pH 7.235 (7.360-7.450)
[2016-11-11 09:33] LABS: PLATELET ESTIMATE NORMAL; TOTAL CELL COUNT 100
[2016-11-12] VITALS (71 sets, daily range): BP systolic 76–129; BP diastolic 30–88
[2016-11-12 05:17] LABS: ABG SAMPLE TYPE ARTERIAL; BE(vivo) 2.1 mmol/L (-2 to +3); HCO3 24.4 mmol/L (22.0-26.0); LACTATE 2.29 mmol/L (0.5-2.0); O2(CT) 13.1 mL/dL (15.0-23.0); O2Hb 96.2 % (92.0-98.0); PCO2 29.5 mmHg (35.0-45.0); PO2 79.1 mmHg (80.0-100.0); pH 7.535 (7.360-7.450); tCO2 25.3 mmol/L (24.0-30.0)
[2016-11-12 05:24] LABS: ABG COMMENT A/C MODE; STICK SITE L.RADIAL; TIDAL VOLUME 500 ml
[2016-11-12 05:33] LABS: ALBUMIN 1.4 g/dL (3.4-5.0); CALCIUM 7.1 mg/dL (8.5-10.1); CREATININE 1.1 mg/dL (0.6-1.0); PHOSPHORUS 1.8 mg/dL (2.5-4.9)
[2016-11-12 06:45] LABS: HEMATOCRIT 23.3 % (37.0-47.0); HEMOGLOBIN 7.8 gm/dL (12.0-15.0); MCH 30.6 pg (26.0-34.0); MCHC 33.6 g/dL (28.0-37.0); RBC 2.56 mil/uL (4.20-5.00); RDW 14.9 % (10.5-14.5); WBC 31.7 thou/uL (4.0-11.0)
[2016-11-12 06:57] LABS: PLATELET COUNT 285 thou/uL (150-400)
[2016-11-12 06:58] LABS: MANUAL DIFF YES
[2016-11-12 08:09] LABS: ABSOLUTE NEUTROPHILS 29.5 thou/uL (1.4-8.2); ANISOCYTOSIS 1+; TOTAL CELL COUNT 100
[2016-11-13] VITALS (36 sets, daily range): BP systolic 51–109; BP diastolic 16–73
[2016-11-13 05:43] LABS: RDW 14.7 % (10.5-14.5)
[2016-11-13 05:45] LABS: MCH 30.2 pg (26.0-34.0); MCHC 33.2 g/dL (28.0-37.0); PLATELET COUNT 249 thou/uL (150-400); RBC 2.97 mil/uL (4.20-5.00)
[2016-11-13 05:54] LABS: ALBUMIN 1.2 g/dL (3.4-5.0); CREATININE 0.8 mg/dL (0.6-1.0); MAGNESIUM 1.4 mg/dL (1.8-2.4); PHOSPHORUS 1.9 mg/dL (2.5-4.9); POTASSIUM 3.7 mmol/L (3.5-5.1); TOTAL BILIRUBIN 0.3 mg/dL (<0.1-1.0); TOTAL PROTEIN 3.8 g/dL (6.4-8.2)
[2016-11-13 05:55] LABS: ABG COMMENT A/C RATE 16; ABG SAMPLE TYPE ARTERIAL; BE(vivo) -1.6 mmol/L (-2 to +3); HCO3 23.6 mmol/L (22.0-26.0); LACTATE 1.76 mmol/L (0.5-2.0); O2(CT) 12.9 mL/dL (15.0-23.0); O2Hb 88.6 % (92.0-98.0); PCO2 41.4 mmHg (35.0-45.0); PO2 57.1 mmHg (80.0-100.0); STICK SITE L.RADIAL; TIDAL VOLUME 550 ml; pH 7.373 (7.360-7.450); tCO2 24.8 mmol/L (24.0-30.0)
[2016-11-13 05:57] LABS: MANUAL DIFF YES
[2016-11-13 05:58] LABS: WBC 41.4 thou/uL (4.0-11.0)
[2016-11-13 07:34] LABS: ABSOLUTE NEUTROPHILS 39.3 thou/uL (1.4-8.2); ANISOCYTOSIS 1+; POLYCHROMASIA OCCASIONAL; TOTAL CELL COUNT 100
== END 2016-11-13 17:44 | DRG 853 ==
LOC: SPEC 09:29 → EDSTATUS 10:32 → SPEC 13:44 → TBA 11-09 05:54 → ICU 11-09 05:54 → PRE 11-09 10:01 → ICU 11-09 17:09
PROVIDERS: Hospitalist; Internal Medicine Pulmonary Disease; Nurse Practitioner Acute Care; Otolaryngology
PROC: 0DB84ZZ Excision of Small Intestine, Percutaneous Endoscopic Approach (ICD-10-PCS; principal; 2016-11-09)
PROC: 0UT50ZZ Resection of Right Fallopian Tube, Open Approach (ICD-10-PCS; 2016-11-09)
PROC: 0UT10ZZ Resection of Left Ovary, Open Approach (ICD-10-PCS; 2016-11-09)
PROC: 0DN80ZZ Release Small Intestine, Open Approach (ICD-10-PCS; 2016-11-09)
PROC: 0JB80ZZ Excision of Abdomen Subcutaneous Tissue and Fascia, Open Approach (ICD-10-PCS; 2016-11-09)
PROC: 0DH63UZ Insertion of Feeding Device into Stomach, Percutaneous Approach (ICD-10-PCS; 2016-11-09)
PROC: 5A1945Z Respiratory Ventilation, 24-96 Consecutive Hours (ICD-10-PCS; 2016-11-09)
PROC: 0BH17EZ Insertion of Endotracheal Airway into Trachea, Via Natural or Artificial Opening (ICD-10-PCS; 2016-11-09)
PROC: 30233N1 Transfusion of Nonautologous Red Blood Cells into Peripheral Vein, Percutaneous Approach (ICD-10-PCS; 2016-11-10)
PROC: B548ZZA Ultrasonography of Superior Vena Cava, Guidance (ICD-10-PCS; 2016-11-12)
PROC: 02HV33Z Insertion of Infusion Device into Superior Vena Cava, Percutaneous Approach (ICD-10-PCS; 2016-11-12)
DX: A41.9 Sepsis, unspecified organism (principal); R65.21 Severe sepsis with septic shock; E43 Unspecified severe protein-calorie malnutrition; J96.00 Acute respiratory failure, unspecified whether with hypoxia or hypercapnia; N17.9 Acute kidney failure, unspecified; Z68.42 Body mass index [BMI] 45.0-49.9, adult; I10 Essential (primary) hypertension; E11.9 Type 2 diabetes mellitus without complications; E87.6 Hypokalemia; Z66 Do not resuscitate; L89.312 Pressure ulcer of right buttock, stage 2; G89.29 Other chronic pain; D64.9 Anemia, unspecified; E83.39 Other disorders of phosphorus metabolism; E83.42 Hypomagnesemia; D72.823 Leukemoid reaction; Z88.1 Allergy status to other antibiotic agents; Z93.2 Ileostomy status
CPT/HCPCS: 10078; 32110; 50010; 50093; 50101; 50331; 50386; 50781; 50953; 51412; 51712; 52287; 53040; 56525; 56527; 56530; 57092; 62110; 62900; 65020; 65040; 65045; 70005

== ENCOUNTER → 2016-08-05 | Outpatient (CLI) | payer OTHER ==
[~2016-08-05] MED LIST changes: +ONDANSETRON HCL4 M1 IV; +[UNRECOGNIZED DRUG - OTHER] PO
[2016-08-05 09:50] VITALS: BP 135/52
== END ==
LOC: SPEC 09:14 → EDSTATUS 09:14 → SPEC 09:37
DX: Z49.01 Encounter for fitting and adjustment of extracorporeal dialysis catheter (principal); I10 Essential (primary) hypertension; E11.9 Type 2 diabetes mellitus without complications; F90.9 Attention-deficit hyperactivity disorder, unspecified type; Z87.891 Personal history of nicotine dependence
CPT/HCPCS: 62110; 62900; 70005

== ENCOUNTER 2016-08-17 13:07 | Inpatient (IN) | payer OTHER ==
[~2016-08-17] VITALS: Ht 160 cm; Wt 109.3 kg
[2016-08-17] VITALS (14 sets, daily range): BP systolic 126–149; BP diastolic 54–70
--- NOTE | ~2016-08-17 | P ---
[facility] [place] [address] PROCEDURE REPORT Name: EZIO CHE Room #: 204-P [facility] IN ..#: [id number] Admission: 08/17/16 Attend Phys: Johan Hernández MD Discharge: Date of : 52 Report #: [id number] THIS REPORT FOR: //name// CC: [facility] physician/PCP Harvey Hernández BRIEF HISTORY: The patient is a 66-year-old woman with multiple medical problems including abdominal-cutaneous fistulas likely related to small bowel perforation in the past. She has had a colectomy for inflammatory bowel disease. She has had a dark greenish to blackish material in her fistula drainage. She has had a drop in hemoglobin requiring transfusion. PREOPERATIVE DIAGNOSIS: Anemia requiring transfusion, possible gastrointestinal bleeding. POSTOPERATIVE DIAGNOSES: Small hiatus hernia. MEDICATIONS: Deep sedation with propofol per anesthesia. SPECIMEN: None. ESTIMATED BLOOD LOSS: None. PROCEDURE: Esophagogastroduodenoscopy. FINDINGS: Prior to propofol sedation, procedure of upper endoscopy discussed with the patient as well as potential risks and its complications. She indicates she understands and desires to proceed. DESCRIPTION OF PROCEDURE: With the patient in the intensive care unit in the supine position with her head raised to about 30 degrees, the LyfeSystemsi video endoscope was inserted in the cervical esophagus under direct vision without difficulty. Examination of this organ through its entire length revealed normal esophageal mucosa. No blood was seen. No esophageal lesions were seen. The squamocolumnar junction was normal. Intermittently, a very small hiatus hernia was seen. Scope was advanced in the stomach, was examined on end view as well as retroflexed views. She had normal mucosa. No ulcers, erosions, or bleeding lesions were seen. No blood was seen anywhere in the stomach. No mass lesions were seen in the retroflexed position. Pylorus was normal. Duodenal bulb was normal. Postbulbar sweep down to the third and fourth portion was normal. No blood was seen. The mucosa was normal. At that point, the scope was slowly withdrawn and careful circumferential views confirmed the above findings. The patient tolerated the procedure well. DISPOSITION: The patient with anemia and drop in hemoglobin. Bleeding lesions were not identified. CT done at [place] raised the possibility of a hematoma. [address] [address] PROCEDURE REPORT Name: EZIO CHE Room #: 204-P [facility] IN ..#: [id number] Admission: 08/17/16 Attend Phys: Johan Hernández MD Discharge: Date of : 52 Report #: [id number] She did not appear to have upper gastrointestinal bleed at this point in time. I would not pursue a small bowel capsule study due to her small bowel disease and potential of a stricturing. If bleeding continues to be a problem, CTA may be a consideration. <ELECTRONICALLY SIGNED> By: Kenneth Diaz MD 08/22/16 1228 1742 022 Kenneth Diaz MD /nt
--- NOTE | ~2016-08-17 | S ---
[facility] [place] [address] SURGICAL PATH RPT PROCEDURE Name: WHITNEY ZAMARRIPA Room #: 204-P ADM IN M.R.#: [id number] Admission: 08/17/16 Date of : 52 Discharge: Report #: [id number] Path Case #: [id number] PATHOLOGY REPORT COLLECTION DATE: 08/20/2016 RECEIVED DATE: 08/21/2016 SUBMITTING PHYS: Dr. Harvey Toney OTHER PHYS: Dr. Johan Hernández SPECIMEN(S) RECEIVED: A.Right iliac crest wound B.Left iliac crest wound * * * * * * * * * * * * FINAL DIAGNOSIS: A. "Right iliac crest wound", debridement: - Subcutaneous soft tissue with acute and chronic inflammation, necrosis, granulation tissue, fibrosis and fat necrosis. B. "Left iliac crest wound", debridement: - Subcutaneous soft tissue with acute and chronic inflammation, necrosis, granulation tissue, fibrosis and fat necrosis. (CLW; 08/24/16) PATHOLOGIST: An Sin M.D. REPORT ELECTRONICALLY SIGNED BY: An Sin M.D. DATE/TIME: 08/24/2016 23:03 * * * * * * * * * * * * GROSS PATHOLOGY: A. The specimen is received in formalin, labeled "Whitney Zamarripa, right iliac crest wound." Received is a segment of yellow-jordan lobulated tissue admixed with dark brown to yellow necrotic appearing tissue admixed with possible skin measuring 5.7 x 3.7 x 3.1 cm in greatest dimension. Specimen is serially sectioned and sales representative facility services sections are submitted in cassette A1 thru A3. B. The specimen is received in formalin, labeled " Whitney Zamarripa, left iliac crest wound." Received is a segment of jordan to red to yellow lobulated tissue admixed with dark brown to yellow necrotic appearing tissue, admixed with possible skin measuring 6.5 x 4.2 x 2.6 cm in greatest dimension. Specimen is serially sectioned and sales representative facility services sections are submitted in cassettes B1 and B2. (ARIELLE; 08/21/2016) CLINICAL HISTORY: Decubitus ulcer [address] [place] [address] SURGICAL PATH RPT PROCEDURE Name: WHITNEY ZAMARRIPA Room #: 204-P ADM IN M.R.#: [id number] Admission: 08/17/16 Date of : 52 Discharge: Report #: [id number] Path Case #: [id number] INITIAL CPT CODE(S): A; 79259 B; 30936 Professional services performed by [facility] at [address], [place] [address] Technical services performed by [facility] at [address] [place] [address], [address] [address]. [facility] [place] [address] PHONE: [phone] DIRECTOR: Tushar Barron M.D. * * * END OF REPORT * * *
--- NOTE | ~2016-08-17 | HC ---
[facility] [place] [address] CONSULTATION Name: EZIO CHE Room #: 204-P ADM IN M.R.#: [id number] Admission: 08/17/16 Attend Phys: Johan Hernández MD Discharge: Date of : 52 Report #: [id number] THIS REPORT FOR: //name// CC: [facility] physician/PCP Johan Hernández DATE OF SERVICE: 08/20/2016 REASON FOR CONSULTATION: Chronic kidney disease. HISTORY OF PRESENT ILLNESS: The patient well known to our service has had multiple hospital admissions both here and at [facility] this year for multisystem failure, sepsis, abdominal perforation status post code blue arrest. She had renal failure requiring dialysis during an earlier hospitalization. Has for the most part had recovery of renal function and a creatinine that has been stable at about 1.5 over at [facility]. She has been admitted at this time with a GI bleed, creatinine inez to 1.7, now 1.8. Urine output is maintained as she is seen in consultation and followup. PAST MEDICAL HISTORY: She has ulcerative colitis, has had subtotal colectomy. She has had recurrent C. diff colitis. She has had multiple bowel perforations with multiple intraabdominal abscesses and now admitted with the GI bleed. She has been hospitalized and quite ill for this entire year. Has severe malnutrition. Has been maintained on TPN up until the current time. MEDICATIONS: Currently is receiving IV fluids with bicarbonate. SOCIAL HISTORY: Noncontributory. FAMILY HISTORY: Noncontributory. Please see old charts. REVIEW OF SYSTEMS: GENERAL: She feels poorly. EYES: Her vision is reasonably good. ENT: Hearing okay. No mouth sores or ulcers. ENDOCRINE: No diabetes or thyroid disease. RESPIRATORY: Comfortable, not short of breath. CARDIAC: No chest pain or angina. GASTROINTESTINAL: She cannot eat anything. GENITOURINARY: Soni in. Urine output reasonable. NEUROLOGIC: Mentally she is pretty good and she can move all extremities but she is quite weak. PHYSICAL EXAMINATION: GENERAL: This is a chronically ill-appearing patient, looking older than her stated age. [facility] [address] [place] [address] CONSULTATION Name: EZIO CHE Room #: 204-P [facility] IN .R.#: [id number] Admission: 08/17/16 Attend Phys: Johan Hernández MD Discharge: Date of : 52 Report #: [id number] SKIN: She apparently has some pressure sores. These are not examined. SKELETAL: She is rather obese and remained so. HEENT: Extraocular movements are full. No scleral icterus. Hearing and vision intact. Mucous membranes dry. NECK: Supple. CHEST: Shows decreased breath sounds at the bases. HEART: Distant, but regular. ABDOMEN: Tender but she does have bowel sounds and she has collection ostomy bag with very dark liquid stool draining. EXTREMITIES: Show very trace peripheral edema. LABORATORY DATA: Hemoglobin is 9.4, white count 13.1, platelets 320. Sodium 136, potassium 3.4, chloride 107, bicarbonate 19, BUN 51, creatinine 1.8. ASSESSMENT: 1. Acute on chronic kidney disease. She has recovered acute tubular necrosis. Baseline creatinine in the mid 1 range, possibly little bit dry now. I will adjust her IV fluids. 2. Hypokalemia. We will adjust that. 3. Malnutrition. I would suggest that she would need to restart her TPN with some intermittent lipids and we will taper off the bicarbonate and leave that to the discretion of her primary physicians. 4. 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 5. Gastrointestinal bleeding, now resolved. 6. History of ulcerative colitis status post subtotal colectomy. 7. Recurrent Clostridium difficile. 8. History of cardiac arrest and multisystem failure. <ELECTRONICALLY SIGNED> By: Morris Condon MD 08/25/16 1146 0814 1138 Morris Condon MD /nt
--- NOTE | ~2016-08-17 | HC ---
[facility] [place] [address] CONSULTATION Name: EZIO CHE Room #: 204-P [facility]..#: [id number] Admission: 08/17/16 Attend Phys: Johan Hernández MD Discharge: 08/25/16 Date of : 52 Report #: [id number] THIS REPORT FOR: //name// CC: [facility] physician/PCP Johan Hernández DATE OF SERVICE: 08/18/2016 DATE OF DICTATION: 08/19/2016 PERSONAL PHYSICIAN: Dr. Hernández. CHIEF COMPLAINT: Bilateral superior iliac crest, decubitus ulcers and coccygeal decubitus ulcer. HISTORY OF PRESENT ILLNESS: The patient is a 66-year-old white female who has had a complicated medical history with prolonged hospitalization over the past several months. The patient with a history of known abdominal fistulas and has been followed by surgery very closely for these fistulas, the last hospitalization, the patient had small areas of breakdown over her bilateral superior iliac crest, at that time we treated her with Silvadene and Xeroform; however, on today's examination, the patient was admitted to the hospital, is found the symptoms have gotten markedly worse and now essentially unstageable decubitus ulcers with foul smelling odor and drainage as well as necrotic tissue in the base. We have been asked to follow the patient for this as well as a small coccygeal ulcer. The patient does complain of pain associated with these ulcerations. PAST MEDICAL HISTORY: Diabetes, hypertension, ADHD, previous colon resection, history of abdominal fistulas, chronic pain syndrome, C. difficile colitis and the above stated pressure ulcers. CURRENT MEDICATIONS: Multiple, on the patient's medication list. ALLERGIES: AMOXICILLIN. SOCIAL HISTORY: The patient has a history of smoking, quit greater than a year ago, has been basically institutionalized or hospitalized for over the past 4 months. REVIEW OF SYSTEMS: Essentially unobtainable because the patient is sedated in the ICU at this time. PHYSICAL EXAMINATION: VITAL SIGNS: T-max is 36.6, rest of vitals are stable except for the pulse rate of 120. [facility] [address] [place] [address] CONSULTATION Name: EZIO CHE Room #: 204-P [facility].#: [id number] Admission: 08/17/16 Attend Phys: Johan Hernández MD Discharge: 08/25/16 Date of : 52 Report #: [id number] GENERAL: This is a sedated white female who is in mild distress secondary to pain, especially with any type of movement. HEENT: Normocephalic, atraumatic. Mucous membranes are dry. Pupils are round. Sclerae white. NECK: Without JVD or masses. LUNGS: Diminished breath sounds heard throughout. HEART: Tachycardic without murmur. ABDOMEN: Obese, soft. There is an ostomy bag in the right lower quadrant with brownish dark effluent. Abdomen is otherwise soft essentially nontender. EXTREMITIES: Rolling the patient over, the patient shows two superior iliac crest ulcerations, which are essentially unstable, with foul smelling, brownish drainage and essentially 100% necrotic tissue. Periulcer itself is mildly erythematous, tender to palpation. There is what appears to be palpable bone; however, it is covered with necrotic tissue. There is also a small stage II coccygeal decubitus ulcer, which is currently granulating. EXTREMITIES: The patient moves all extremities spontaneous, bilateral heels are intact. NEUROLOGIC: Cranial nerves 2-12 grossly intact. Motor and sensory grossly intact. LABORATORY DATA: White count is 10.2, albumin is markedly low at 1.4. IMPRESSION: 1. Bilateral superior iliac crest, decubitus ulcers, unstageable at this time, which appeared to be infected. 2. Stage 2 coccygeal decubitus ulcer. 3. Morbid obesity. 4. C. difficile enteritis. 5. Severe protein calorie malnutrition with an albumin 1.4. 6. Generalized debility. PLAN: At this time, we will start the patient on Dakin's moistened Kerlix packed within the ulcerations covered with and ABD changed twice daily. We will use Optifoam over the coccygeal ulcer. We will start the patient on low air loss mattress; however, turned every 2 hours. I will put a consultation to Dr. Toney who is his general surgery who saw this patient in the past for surgical evaluation and treatment of these ulcerations in the operating room. I talked to the patient about possibly doing it at the bedside and she was very hesitant given the fact that it is very difficult to roll her because of her obesity and she has such pain with the ulcerations. We also attempt to maximize the patient's oral supplementation of protein as possible and we will continue to follow the patient. [address] [place] [address] CONSULTATION Name: EZIO CHE Room #: 204-P [facility] IN M.R.#: [id number] Admission: 08/17/16 Attend Phys: Johan Hernández MD Discharge: 08/25/16 Date of : 52 Report #: [id number] I appreciate the ability to consult. <ELECTRONICALLY SIGNED> By: Jacob Wright MD 08/26/16 0825 1341 0338 Jacob Wright MD /nt
--- NOTE | ~2016-08-17 | HC ---
[facility] [place] [address] CONSULTATION Name: EZIO CHE Room #: 204-P ADM IN M.R.#: [id number] Admission: 08/17/16 Attend Phys: Johan Hernández MD Discharge: Date of : 51 Report #: [id number] THIS REPORT FOR: //name// CC: [facility] physician/PCP Johan Hernández DATE OF SERVICE: 08/18/2016 HISTORY OF PRESENT ILLNESS: A 66-year-old white woman known to me from prolonged hospitalization at [facility], is transferred from [place] to [facility] on 08/17/2016 with drop in hemoglobin. I have review CT scan of the abdomen and pelvis with Dr. Eusebio Estrada on that date. Possibility of proceeding with CT angio was entertained after a GI evaluation for possible upper gastrointestinal bleeding. The patient is evaluated by Dr. Kenneth Diaz who performed EGD and finds a large gastric polyp and I believe it is cauterized, resected. The patient has chronic enterocutaneous fistula, continuously bleeding dark small bowel content on right upper abdominal quadrant. She has chronic abdominal pain. As up lately, she developed some leukocytosis and possible increasing abdominal pain and she was restarted on broad-spectrum antibiotic consisting Zyvox, cefepime and she was continued on her oral vancomycin. The issue of the vancomycin treatment for C. difficile colitis appears to be moot point since the patient did have subtotal colectomy for ulcerative colitis in the past. In case there is left over colon, she has remained on this treatment. I am asked to follow the patient here in the hospital and I believe this was at the patient's request. PAST MEDICAL HISTORY: Diabetes mellitus, hypertension, some psychiatric disorder, question etiology, history of ulcerative colitis, and subtotal colectomy, acute renal failure requiring hemodialysis with resolution of renal failure and removal of the dialysis catheter, chronic abdominal pain. ALLERGIES: The patient appears to be allergic and intolerant to AMOXICILLIN. MEDICATIONS: The patient is on treatment with sodium bicarbonate, Zyvox, glucagon p.r.n., glucose p.r.n., cefepime, oxychlorosene topical, Diflucan 100 mg daily, vancomycin 125 mg 4 times daily, Atrovent and albuterol inhalation treatments p.r.n., ondansetron, p.r.n., morphine sulfate. SOCIAL HISTORY: See H and P, old records. FAMILY HISTORY: See H and P, old records. REVIEW OF SYSTEMS: Persistent chronic ongoing abdominal pain [place] [address] CONSULTATION Name: EZIO CHE Room #: 204-P [facility] IN ..#: [id number] Admission: 08/17/16 Attend Phys: Johan Hernández MD Discharge: Date of : 52 Report #: [id number] PHYSICAL EXAMINATION: GENERAL: Chronically ill-appearing woman, not toxic looking. VITAL SIGNS: Temperature 97.9, pulse 121, respirations 18, BP 125/106, intake 2957, output 475, O2 saturation 95% on room air. HEENT: Pupils reactive. Mouth: Moist mucous membrane. No thrush. NECK: Supple. LUNGS: Clear anteriorly. HEART: S1, S2. No gallop or murmur. BREASTS: Deferred. ABDOMEN: Right-sided ostomy bag, having output of small bowel content. The abdomen is mildly distended, always tender, particularly on the right abdominal quadrant and the bowel sounds remain decreased. PELVIC AND RECTAL: Deferred. The patient appears to be in a pool of stool again. EXTREMITIES: Reveal no clubbing, cyanosis. NEUROLOGIC: Grossly within normal limits. LABORATORY DATA: Sodium 136, potassium 3.5, CO2 of 16, BUN 60, creatinine 1.7, magnesium 1.5, albumin 1.4 g/dL. WBC on admission 22,700, hemoglobin 7.6 g/dL, and platelets 425,000. Today's CBC revealed WBC 13.8, hemoglobin 9.2, platelets 298,000. The urinalysis revealed proteinuria, 2+ blood, 3+ leukocyte esterase. Microscopic exam revealed pyuria, microscopic hematuria, and bacteriuria as well as funguria. MICROBIOLOGY DATA: Urine culture was obtained on 08/17/2016, and this is pending at the time of this dictation. RADIOLOGY EVALUATION: The chest x-ray failed to reveal any pulmonary infiltrates. ASSESSMENT: 1. Chronic abdominal pain. 2. Blood loss anemia, question secondary to gastric polyp. 3. History of intraabdominal infection with achromobacter and Nikia, treated. 4. Positive stool for Clostridium difficile toxin and the patient with subtotal colectomy. 5. History of positive diverticulitis, status post subtotal colectomy. 6. Chronic kidney disease. 7. Electrolyte imbalance. 8. Malnutrition. 9. AMOXICILLIN allergy. SUGGESTIONS: For time being, we will continue coverage with Zyvox and cefepime as started at [facility]. I do not believe Flagyl is indicated. I have stopped this on Fridays and I believe Dr. House had restarted. I totally [facility] [address] [place] [address] CONSULTATION Name: EZIO CHE Room #: 204-P ADM IN .#: [id number] Admission: 08/17/16 Attend Phys: Johan Hernández MD Discharge: Date of : 51 Report #: [id number] agree with discontinuation of this drug. I see no reason for the Diflucan currently. Oral vancomycin is at moot point unless we have the feeling that she may have some left over colon which may being effected by Clostridium difficile bacteria. , thank you for requesting my suggestions in the care of your patient. <ELECTRONICALLY SIGNED> By: Popeye Villarreal MD 08/20/16 1031 [id number] Popeye Villarreal MD /nt
--- NOTE | ~2016-08-17 | HC ---
[facility] [place] [address] CONSULTATION Name: EZIO CHE Room #: 204-P ADM IN .R.#: [id number] Admission: 08/17/16 Attend Phys: Johan Hernández MD Discharge: Date of : 51 Report #: [id number] THIS REPORT FOR: //name// CC: [facility] physician/PCP Johan Hernández DATE OF SERVICE: 08/18/2016 CHIEF COMPLAINT: Abdominal pain. HISTORY OF PRESENT ILLNESS: The patient is a 66-year-old female patient well known to the surgery service who has been followed over the past 4 months since being seen in extremis just after April 19. She had at that time been in septic shock with multisystem organ failure and underwent a code blue resuscitation during that period. She was noted to have intraabdominal abscesses and was positive for Clostridium difficile enteritis. She was treated with percutaneous drainage of these fluid collections with extensive support care with IV antibiotic therapy. The drains had to be exchanged and manipulated various times throughout this course and she has been between long-term acute care facility at [facility] multiple times during that period. More recently, she underwent removal of her right lower abdominal percutaneous drains after these had been left in place for a period of months to allow fistulization to occur that is epithelialization of a tract between the dilated loop of bowel that had perforated and the surface. This proved to be successful creating enterocutaneous fistulas, which could be controlled similar to ostomy. Since that time, the patient was again noted to be positive for Clostridium difficile enteritis from a stool simple in July, approximately July 27. She has been on a clear liquid diet, which she tolerates minimally. She has had persistent nausea with occasional emesis during this past several weeks. Over the past 4-5 days, she has had increasing issues with drops in hemoglobin requiring multiple blood transfusions. Per nursing report, she has had black liquid enteric output from the enterocutaneous fistulae as well as persistent dark loose stools. After discussion with the various medical teams on 08/17/2016, she was transferred back to [facility] for more thorough evaluation. She was noted to be anemic yet again and required 2 more units of packed red blood cells. Earlier this morning, the patient was noted again to have dropped her hemoglobin from 8 to 5 and is scheduled for further transfusions. Gastroenterology as well as interventional radiology had been consulted for assistance with identifying the source of what appears to be an upper gastrointestinal hemorrhage. PAST MEDICAL HISTORY: Positive for diabetes mellitus, hypertension, ADHD, multiple unknown psychiatric disorders requiring long-term psychiatric medications; previous ulcerative colitis status post previous subtotal colectomy with ileorectal anastomosis [address] Osborn; previous Clostridium difficile enteritis multiple episodes, treated with multiple rounds [address] [address] CONSULTATION Name: EZIO CHE Room #: 204-P [facility] IN .R.#: [id number] Admission: 08/17/16 Attend Phys: Johan Hernández MD Discharge: Date of : 51 Report #: [id number] of oral vancomycin and IV Flagyl; multiple extremity fractures from falls over the years; previous acute renal failure requiring hemodialysis, more recent improvement of her renal function with appropriate urine output; previous septic shock with multisystem organ failure as described above; chronic pain syndrome, of note, her abdominal wall pain has significantly improved over the past several weeks since discontinuation of the percutaneous drains. PAST SURGICAL HISTORY: Positive for previous subtotal colectomy with ileorectal anastomosis 30 years ago, previous cholecystectomy, multiple procedures with Interventional Radiology for percutaneous drainage of intra-abdominal abscesses over the past 3 months, a left-sided Tesio dialysis port and a right subclavian central line which was left in place long-term. SOCIAL HISTORY: The patient has been a long-term acute care facility resident and had previously been living alone prior to April 19. She was a previous smoker and quit greater than 1 year ago. Denies history of ETOH or illicit drug use. ALLERGIES: No known drug allergies. FAMILY HISTORY: Negative for family history of colon cancer or irritable bowel. MEDICATIONS: Upon transfer, pantoprazole 40 mg twice daily, carboxymethylcellulose eye drops, acetaminophen, Silvadene, DuoNebs fluconazole, zolpidem, Zofran, magnesium hydroxide, sucralfate, insulin, Dilaudid p.r.n., p.o. vancomycin 125 mg 4 times daily, morphine p.r.n. REVIEW OF SYSTEMS: CONSTITUTIONAL: Negative for agusto fevers or chills. She reports normal appetite. No obvious weight gain or weight loss that the patient is aware of. HEENT: No dysphagia or odynophagia. No headaches or congestion. OCULAR: No diplopia or visual change. CARDIOVASCULAR: No chest pain or palpitation. PULMONARY: No productive cough, no shortness of breath. GASTROINTESTINAL: Positive for persistent reflux symptoms, persistent nausea and vomiting, chronic diarrhea with chronic abdominal pain that waxes and wanes. Positive for enterocutaneous fistulae as described above in the right mid abdomen and right lower quadrant, well pouched with ostomy appliance in place to collect any drainage. MUSCULOSKELETAL: No back or joint pain. NEUROLOGIC: Chronic pain. No focal weakness or numbness. CUTANEOUS: Positive for breakdown of the pannicular fold region overlying her iliac crest bilateral consistent with pannus and morbid obesity. ENDOCRINE: Positive for diabetes mellitus. No history of thyroid issues. HEMATOLOGIC: Positive for melena in ostomy pouch as well as multiple loose stools that are heme positive. PHYSICAL EXAMINATION: GENERAL: The patient is ill appearing, morbidly obese and frail, but in no acute distress. She is tearful during the examination, [facility] [address] [place] [address] CONSULTATION Name: EZIO CHE Room #: 204-P [facility] IN .R.#: [id number] Admission: 08/17/16 Attend Phys: Johan Hernández MD Discharge: Date of : 51 Report #: [id number] but does give appropriate history. HEENT: Head is atraumatic and normocephalic. No icterus is appreciated. Cranial nerves are intact and symmetric. Mucosae are dry. NECK: Supple. LUNGS: Clear to auscultation. No respiratory distress. HEART: Tachycardic and regular. No jugular venous distention is appreciated. ABDOMEN: Obese. No peritonitis is appreciated. She is tender with deep palpation on the right greater than left side, fistulae with to 2-3 cm openings, well pouched with large ostomy appliance covering both fistulae with black bilious enteric collection within the bag. Within the pannicular folds of her iliac crest region, she has some skin breakdown with sloughing. This area is tender to palpation. EXTREMITIES: She moves all extremities and these are well perfused. PSYCHIATRIC: The patient is tearful and anxious, asking for antianxiety medication. LABORATORY STUDIES: Reviewed. CBC shows a white count of 22.7, hemoglobin of 7.6, platelets of 425, PT of 11, INR of 1.1. Complete metabolic profile shows sodium 132, potassium 3.7, BUN 81, creatinine 1.5, lipase of 2526, total bilirubin is 0.3, AST of 63, ALT of 39, alkaline phosphatase of 215. Urinalysis showed 1+ protein, 2+ blood, 3+ leukocytes, greater than 25 wbc's, 3-10 rbc's, 10-30 bacteria and positive yeast. Portable chest x-ray showed no acute process. CT scan from June 27 is reviewed as well as multiple scans from [facility] reviewed with staff radiology. Please refer to the electronic medical record for details. IMPRESSION: 1. 66-year-old female patient with extensive past medical and surgical history including subtotal colectomy and then multiple episodes of Clostridium difficile enteritis, previous multisystem organ failure with sepsis and septic shock at the beginning of this year, treated successfully with percutaneous drainage of multiple intra-abdominal abscesses with ultimate long-term fistulization between her perforated dilated small bowel loops and the surface in order to control the enteric drainage. More recent development of what appears to be an upper gastrointestinal bleed requiring multiple units of packed red cells transfused. Agree with admission with intensive care resuscitation. Gastroenterology and interventional radiology have been consulted regarding isolation and control of this apparent upper gastrointestinal hemorrhage. 2. 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 3. Wound care team has been consulted regarding pannicular fold wounds. She also was noted to have a stage 2 sacral decubitus ulcer. These may need to be debrided in the future once she is hemodynamically stable. 4. The patient is still not a good candidate for open abdominal operation. Further, the patient has refused multiple times regarding discussion of potential exploratory laparotomy. Please refer to previous consultation notes regarding multiple discussions of this possibility. 5. At this time, I have discussed with gastroenterology colleagues regarding esophagogastroduodenoscopy in the near future to hopefully identify and isolate the source of bleeding. We will continue with supportive care in the meantime. [facility] [address] [place] [address] CONSULTATION Name: EZIO CHE Room #: 204-P ADM IN M.R.#: [id number] Admission: 08/17/16 Attend Phys: Johan Hernández MD Discharge: Date of : 51 Report #: [id number] 6. Consultation very much appreciated. We will continue to follow closely and make further recommendations based upon clinical status and radiographic and laboratory findings. Greater than 1 hour utilized reviewing the patient's records and discussing with the various members of the medical teams at both hospitals. <ELECTRONICALLY SIGNED> By: Harvey Toney MD 08/19/16 1235 1610 0049 Harvey Toney MD /nt
--- NOTE | ~2016-08-17 | O ---
[facility] [place] [address] OPERATIVE REPORT Name: EZIO CHE Room #: 204-P ADM IN M.R.#: [id number] Admission: 08/17/16 Attend Phys: Johan Hernández MD Discharge: Date of : 52 Report #: [id number] THIS REPORT FOR: //name// CC: [facility] physician/PCP Johan Hernández DATE OF SERVICE: 08/20/2016 PREOPERATIVE DIAGNOSIS: Bilateral iliac crest, unstageable pressure ulcers. POSTOPERATIVE DIAGNOSIS: Bilateral stage III posterior iliac crest pressure ulcers. SURGEON: Harvey Toney M.D. PARLIAMENTARY LIBRARIAN: None. PROCEDURE: Excisional debridement with Misonix ultrasonic debridement of left and right iliac crest ulcers stage III. ANESTHESIA: General endotracheal anesthesia. ESTIMATED BLOOD LOSS: 250 mL. SPECIMENS TO PATHOLOGY: Bilateral iliac crest wound cultures. INDICATION FOR PROCEDURE: The patient is a very pleasant 66-year-old female patient known to the surgery service with complicated past medical history including Clostridium difficile enteritis, previous subtotal colectomy, previous bowel perforation with percutaneous drainage of intraabdominal abscess. She has been a long-term acute care resident and has developed pressure ulcerations in the tissue superficial to her iliac crest posteriorly on both sides. General surgery was therefore asked to debride these in the operating room setting as these were unstageable and unable to be debrided at the bedside due to the patient's discomfort. Detailed discussion of the risks and benefits of the procedure was held with the patient and all questions were answered to her satisfaction. DESCRIPTION OF PROCEDURE: The patient was brought to the operating room and placed in a supine position. After written informed consent was obtained, timeout was taken to verify the patient's identity and to plan the procedure. SCDs were in place on the lower extremities bilaterally. Preoperative antibiotics were administered, as she was already on a scheduled antibiotic regimen. The patient was induced and intubated successfully. She was placed in the left lateral decubitus position with her right flank exposed. This wound was sterilely prepped and draped with Betadine after cultures had been obtained [address] [address] OPERATIVE REPORT Name: CHINEDUEZIO Leatha Room #: 204-P [facility] IN ..#: [id number] Admission: 08/17/16 Attend Phys: Johan Hernández MD Discharge: Date of : 51 Report #: [id number] and passed off for aerobic, anaerobic and fungal culture. The wound was measured as 8 x 4 x 2 cm deep and was labeled as right iliac crest wound. This was debrided sharply and using electrocautery down to deep subcutaneous adipose necrotic tissue also involving some of the deep muscle, the deepest tissue debrided was necrotic muscle tissue. Electrocautery and several 3-0 Vicryl [id number] sutures were utilized for excellent hemostatic control. The wound was then debrided using Muecsonix ultrasonic irrigation and suction device to further remove any nonviable tissue. Following this, hemostasis was again carefully verified and this was measured as post-debridement size 8 cm x 5 cm x 6 cm deep, deepest tissue debrided was necrotic muscle tissue. The wound was then packed with Dakin's soaked Kerlix gauze and covered with a sterile dressing. The patient was then rotated to the right lateral decubitus with the left flank exposed and this was cultured as well. This was sterilely prepped and draped with Betadine. The wound was measured as 8 x 4 x 2 cm deep and was noted to have significant necrosis. This was debrided sharply and with electrocautery down to tissue, which oozed bright red blood and actually showed some small arterial bleeding. This was controlled using a [id number] 2-0 Vicryl and 3-0 Vicryl sutures as well electrocautery. The specimen was passed off as left iliac crest wound. Culture had also been obtained prior to sterile prep. The wound was then debrided further with Misonix ultrasonic device and hemostasis was again obtained after this had been performed. The wound was then remeasured as 8 x 5 x 6 cm, deepest tissue debrided was necrotic muscle tissue. A sheet of Surgicel was placed at the posterior aspect as this continued to ooze very slowly, but hemostasis was well verified at this point and the wound was packed with Dakin's soaked Kerlix gauze and a sterile dressing was applied superficial to this. At this point, the patient was placed back in the supine position, anesthesia was reversed and she was extubated and taken to the postoperative care unit in stable condition. By: [id number] Harvey Toney MD /nt
[2016-08-17 14:02] LABS: HEMATOCRIT 23.1 % (37.0-47.0); HEMOGLOBIN 7.6 gm/dL (12.0-15.0); MCH 28.2 pg (26.0-34.0); MCHC 32.9 g/dL (28.0-37.0); MCV 85.7 fL (80.0-100.0); PLATELET COUNT 425 thou/uL (150-400); RDW 19.2 % (10.5-14.5); WBC 22.7 thou/uL (4.0-11.0)
[2016-08-17 14:03] LABS: MANUAL DIFF YES
[2016-08-17 14:13] LABS: CALCIUM 8.4 mg/dL (8.5-10.1); CREATININE 1.5 mg/dL (0.6-1.0); POTASSIUM 3.7 mmol/L (3.5-5.1)
[2016-08-17 14:15] LABS: APTT 32.6 Seconds (24.5-32.8); INR 1.1
[2016-08-17 14:18] LABS: ALBUMIN 1.6 g/dL (3.4-5.0); TOTAL BILIRUBIN 0.3 mg/dL (<0.1-1.0); TOTAL PROTEIN 5.4 g/dL (6.4-8.2)
[2016-08-17 14:32] LABS: ABSOLUTE NEUTROPHILS 20.2 thou/uL (1.4-8.2); TOTAL CELL COUNT 100
[2016-08-17 16:11] LABS: URINE BILIRUBIN NEGATIVE (Negative); URINE BLOOD 2+ (Negative); URINE COLOR YELLOW; URINE GLUCOSE-RANDOM* NEGATIVE (Negative); URINE KETONES NEGATIVE (Negative); URINE LEUKOCYTES-REFLEX 3+ (Negative); URINE PROTEIN (DIPSTICK) 1+ (Negative); URINE UROBILINOGEN 0.2 E.U./dl (0.2-1.0)
[2016-08-17 16:22] LABS: CASTS None Seen /LPF (None Seen); SQUAMOUS 0-3 Few /LPF (0-3); URINE RBC 3-10 Few /HPF (0-2); URINE WBC-REFLEX >25 Many /HPF (0-5)
[2016-08-17 16:23] LABS: CRYSTALS None Seen /LPF (None Seen); YEAST-REFLEX Present (None Seen)
[2016-08-18] VITALS (56 sets, daily range): BP systolic 98–146; BP diastolic 46–82
[2016-08-18 05:20] LABS: HEMATOCRIT 26.2 % (37.0-47.0); HEMOGLOBIN 8.8 gm/dL (12.0-15.0); MCH 29.5 pg (26.0-34.0); MCHC 33.4 g/dL (28.0-37.0); MCV 88.1 fL (80.0-100.0); RBC 2.98 mil/uL (4.20-5.00); RDW 17.7 % (10.5-14.5); WBC 17.2 thou/uL (4.0-11.0)
[2016-08-18 05:32] LABS: ALBUMIN 1.4 g/dL (3.4-5.0); CALCIUM 8.3 mg/dL (8.5-10.1); CREATININE 1.5 mg/dL (0.6-1.0); POTASSIUM 4.3 mmol/L (3.5-5.1); TOTAL BILIRUBIN 0.6 mg/dL (<0.1-1.0)
[2016-08-18] MEDS ORDERED: FLAGYL500 MG IV (05:47)
[2016-08-18] MEDS ORDERED: [UNRECOGNIZED DRUG - MIXTURE] IV (05:48)
[2016-08-18] MEDS ORDERED: METOCLOPRAM5 MG/1 M2 IV (06:02)
[2016-08-18] MEDS ORDERED: NYSTATIN 1100000 U/M PO (06:04)
[2016-08-18] MEDS ORDERED: VANCOMYCIN100 MG/ML PO (06:04)
[2016-08-18] MEDS ORDERED: ZYVOX600 MG/300 IV (06:05)
[2016-08-18] MEDS ORDERED: MAXIPIME2 GM IV (06:05)
[2016-08-18] MEDS ORDERED: ANTACID650 MG PO (06:06)
[2016-08-18] MEDS ORDERED: EFFEXOR 5050 MG/1 T1 PO (06:07)
[2016-08-18] MEDS ORDERED: PEPCID20 MG IV (06:07)
[2016-08-18] MEDS ORDERED: FENTANYL PA25 MCG/HR TOP (06:07)
[2016-08-18] MEDS ORDERED: LANTISEPTIC OI113 GM TOP (06:08)
[2016-08-18] MEDS ORDERED: EUCERIN CREME57 GM TOP (06:09)
[2016-08-18] MEDS ORDERED: DAKIN'S473 M1 TOP (06:09)
[2016-08-18] MEDS ORDERED: NYAMYC15 GM TOP (06:09)
[2016-08-18] MEDS ORDERED: CARAFATE 11 GM/10 M1 PER TUBE (06:10)
[2016-08-18] MEDS ORDERED: LEXAPRO 10 MG T10 M1 PO (06:10)
[2016-08-18] MEDS ORDERED: LORAZEPAM 22 MG/1 ML IV (06:11)
[2016-08-18] MEDS ORDERED: PHENERGAN 25 MG25 M1 IV (06:11)
[2016-08-18 12:18] LABS: HEMATOCRIT 15.3 % (37.0-47.0); HEMOGLOBIN 5.2 gm/dL (12.0-15.0)
[2016-08-18 13:00] LABS: HEMOGLOBIN 5.1 gm/dL (12.0-15.0)
[2016-08-18 13:01] LABS: HEMATOCRIT 15.4 % (37.0-47.0)
[2016-08-18 15:40] LABS: HEMATOCRIT 26.1 % (37.0-47.0)
[2016-08-18 15:49] LABS: HEMOGLOBIN 8.8 gm/dL (12.0-15.0)
[2016-08-18 18:05] LABS: HEMATOCRIT 30.5 % (37.0-47.0); HEMOGLOBIN 10.2 gm/dL (12.0-15.0)
[2016-08-18 21:18] LABS: HEMATOCRIT 29.9 % (37.0-47.0); HEMOGLOBIN 10.2 gm/dL (12.0-15.0)
[2016-08-19 00:54] VITALS: BP 133/53
[2016-08-19 04:17] VITALS: BP 118/68
[2016-08-19 05:31] LABS: HEMATOCRIT 26.7 % (37.0-47.0); HEMOGLOBIN 9.2 gm/dL (12.0-15.0); MCH 29.6 pg (26.0-34.0); MCHC 34.3 g/dL (28.0-37.0); MCV 86.3 fL (80.0-100.0); RBC 3.1 mil/uL (4.20-5.00); RDW 17.1 % (10.5-14.5); WBC 13.8 thou/uL (4.0-11.0)
[2016-08-19 05:58] LABS: ALBUMIN 1.4 g/dL (3.4-5.0); CALCIUM 7.9 mg/dL (8.5-10.1); CREATININE 1.7 mg/dL (0.6-1.0); MAGNESIUM 1.5 mg/dL (1.8-2.4); PHOSPHORUS 2.7 mg/dL (2.5-4.9); POTASSIUM 3.5 mmol/L (3.5-5.1); TOTAL BILIRUBIN 0.6 mg/dL (<0.1-1.0); TOTAL PROTEIN 4.8 g/dL (6.4-8.2)
[2016-08-19 07:50] VITALS: BP 125/106
[2016-08-19 12:00] VITALS: BP 127/54
[2016-08-19 17:00] LABS: HEMATOCRIT 24.9 % (37.0-47.0); HEMOGLOBIN 8.3 gm/dL (12.0-15.0)
[2016-08-19 18:30] VITALS: BP 125/76
[2016-08-19 19:53] VITALS: BP 132/68
[2016-08-20 03:34] VITALS: BP 143/68
[2016-08-20 04:20] LABS: HEMATOCRIT 26.9 % (37.0-47.0); HEMOGLOBIN 9.4 gm/dL (12.0-15.0); MCH 30.6 pg (26.0-34.0); MCHC 35.1 g/dL (28.0-37.0); MCV 87.2 fL (80.0-100.0); RBC 3.09 mil/uL (4.20-5.00); RDW 17.1 % (10.5-14.5); WBC 13.1 thou/uL (4.0-11.0)
[2016-08-20 04:32] LABS: ALBUMIN 1.3 g/dL (3.4-5.0); CREATININE 1.8 mg/dL (0.6-1.0); PHOSPHORUS 2.6 mg/dL (2.5-4.9); POTASSIUM 3.4 mmol/L (3.5-5.1)
[2016-08-20 08:42] VITALS: BP 114/59
[2016-08-20 10:18] LABS: ALBUMIN 1.4 g/dL (3.4-5.0); CALCIUM 7.7 mg/dL (8.5-10.1); CREATININE 1.8 mg/dL (0.6-1.0); PHOSPHORUS 2.7 mg/dL (2.5-4.9); POTASSIUM 3.4 mmol/L (3.5-5.1); TOTAL BILIRUBIN 0.5 mg/dL (<0.1-1.0); TOTAL PROTEIN 4.7 g/dL (6.4-8.2)
[2016-08-20 11:20] VITALS: BP 138/48
[2016-08-20 12:41] VITALS: BP 145/74
[2016-08-20 19:36] VITALS: BP 137/66
[2016-08-20 23:43] VITALS: BP 113/53
[2016-08-21 03:16] VITALS: BP 120/60
[2016-08-21 07:22] VITALS: BP 122/50
[2016-08-21 07:27] LABS: ALBUMIN 1.2 g/dL (3.4-5.0); CALCIUM 8.2 mg/dL (8.5-10.1); CREATININE 2.1 mg/dL (0.6-1.0); PHOSPHORUS 2.9 mg/dL (2.5-4.9); POTASSIUM 4.5 mmol/L (3.5-5.1); TOTAL BILIRUBIN 0.4 mg/dL (<0.1-1.0)
[2016-08-21 11:21] VITALS: BP 133/46
[2016-08-21 15:38] VITALS: BP 123/51
[2016-08-21 19:35] VITALS: BP 113/57
[2016-08-22 03:49] VITALS: BP 146/74
[2016-08-22 05:06] LABS: ALBUMIN 1.2 g/dL (3.4-5.0); CALCIUM 8.7 mg/dL (8.5-10.1); CREATININE 2.2 mg/dL (0.6-1.0); MAGNESIUM 1.9 mg/dL (1.8-2.4); PHOSPHORUS 2.7 mg/dL (2.5-4.9)
[2016-08-22 07:35] VITALS: BP 132/58
[2016-08-22 08:00] VITALS: BP 155/65
[2016-08-22 12:11] VITALS: BP 141/56
[2016-08-22 16:00] VITALS: BP 148/56
[2016-08-22 19:56] VITALS: BP 132/73
[2016-08-23 03:27] VITALS: BP 142/69
[2016-08-23 08:50] VITALS: BP 142/70
[2016-08-23 13:48] LABS: ALBUMIN 1.2 g/dL (3.4-5.0); CALCIUM 8.6 mg/dL (8.5-10.1); MAGNESIUM 1.8 mg/dL (1.8-2.4); PHOSPHORUS 2.2 mg/dL (2.5-4.9); POTASSIUM 4.1 mmol/L (3.5-5.1)
[2016-08-23 17:00] VITALS: BP 151/82
[2016-08-23 19:41] VITALS: BP 147/70
[2016-08-24] VITALS (8 sets, daily range): BP systolic 139–176; BP diastolic 72–93
[2016-08-24 06:28] LABS: MCH 29.9 pg (26.0-34.0); MCHC 33.3 g/dL (28.0-37.0); MCV 89.8 fL (80.0-100.0); RBC 2.34 mil/uL (4.20-5.00); WBC 9.3 thou/uL (4.0-11.0)
[2016-08-24 07:13] LABS: CALCIUM 7.9 mg/dL (8.5-10.1); CREATININE 1.9 mg/dL (0.6-1.0); POTASSIUM 3.8 mmol/L (3.5-5.1); TOTAL BILIRUBIN 0.2 mg/dL (<0.1-1.0); TOTAL PROTEIN 4.7 g/dL (6.4-8.2)
[2016-08-24 07:14] LABS: MAGNESIUM 1.7 mg/dL (1.8-2.4); PHOSPHORUS 2.3 mg/dL (2.5-4.9)
[2016-08-24 13:51] LABS: HEMATOCRIT 22.2 % (37.0-47.0)
[2016-08-24 13:52] LABS: HEMOGLOBIN 5.3 gm/dL (12.0-15.0)
[2016-08-25 03:44] VITALS: BP 140/83
[2016-08-25 06:21] LABS: HEMATOCRIT 28.3 % (37.0-47.0); MCHC 33.2 g/dL (28.0-37.0); MCV 87.2 fL (80.0-100.0); RBC 3.25 mil/uL (4.20-5.00); RDW 16.1 % (10.5-14.5); WBC 10.2 thou/uL (4.0-11.0)
[2016-08-25 06:46] LABS: HEMOGLOBIN 9.4 gm/dL (12.0-15.0)
[2016-08-25 07:49] VITALS: BP 149/80
[2016-08-25 12:31] VITALS: BP 148/84
[2016-08-25 17:52] VITALS: BP 158/92
[2016-08-25 19:25] VITALS: BP 158/83
== END 2016-08-25 21:00 | DRG 853 ==
LOC: ER 13:07 → ICU 14:54 → EROBS 14:54 → ICU 19:07 → 2N 08-19 00:54
PROVIDERS: Emergency Medicine; Hospitalist; Internal Medicine; Internal Medicine Gastroenterology; Internal Medicine Nephrology; Nurse Practitioner Adult Health; Specialist
PROC: 30233N1 Transfusion of Nonautologous Red Blood Cells into Peripheral Vein, Percutaneous Approach (ICD-10-PCS; 2016-08-17)
PROC: 0DJ08ZZ Inspection of Upper Intestinal Tract, Via Natural or Artificial Opening Endoscopic (ICD-10-PCS; principal; 2016-08-18)
PROC: 02HV33Z Insertion of Infusion Device into Superior Vena Cava, Percutaneous Approach (ICD-10-PCS; 2016-08-18)
PROC: 0KBP0ZZ Excision of Left Hip Muscle, Open Approach (ICD-10-PCS; 2016-08-20)
PROC: 0KBN0ZZ Excision of Right Hip Muscle, Open Approach (ICD-10-PCS; 2016-08-20)
DX: A41.9 Sepsis, unspecified organism (principal); E43 Unspecified severe protein-calorie malnutrition; L89.153 Pressure ulcer of sacral region, stage 3; L89.223 Pressure ulcer of left hip, stage 3; L89.213 Pressure ulcer of right hip, stage 3; K92.2 Gastrointestinal hemorrhage, unspecified; A04.7 Enterocolitis due to Clostridium difficile; N17.9 Acute kidney failure, unspecified; K63.2 Fistula of intestine; D62 Acute posthemorrhagic anemia; B37.49 Other urogenital candidiasis; E87.2 Acidosis; Z68.41 Body mass index [BMI] 40.0-44.9, adult; R10.9 Unspecified abdominal pain; E87.8 Other disorders of electrolyte and fluid balance, not elsewhere classified; G89.4 Chronic pain syndrome; E66.01 Morbid (severe) obesity due to excess calories; E87.6 Hypokalemia; K44.9 Diaphragmatic hernia without obstruction or gangrene; E11.9 Type 2 diabetes mellitus without complications; F90.9 Attention-deficit hyperactivity disorder, unspecified type; Z90.49 Acquired absence of other specified parts of digestive tract; Z87.891 Personal history of nicotine dependence; Z88.1 Allergy status to other antibiotic agents; Z86.74 Personal history of sudden cardiac arrest; Z79.899 Other long term (current) drug therapy; I12.9 Hypertensive chronic kidney disease with stage 1 through stage 4 chronic kidney disease, or unspecified chronic kidney disease; N18.9 Chronic kidney disease, unspecified
CPT/HCPCS: 10078; 10081; 50010; 50101; 50403; 53353; 53354; 56524; 56529; 56639; 62110; 62900; 70005; 85076

== ENCOUNTER 2016-10-21 12:41 | Inpatient (IN) | payer OTHER ==
[~2016-10-21] VITALS: Ht 165.1 cm; Wt 92.3 kg
[~2016-10-21 12:41] MED LIST changes: +ANTACID650 MG PO; +DAKIN'S473 M1 TOP; +EUCERIN CREME57 GM TOP; +FENTANYL PA25 MCG/HR TOP; +FLAGYL500 MG IV; +LANTISEPTIC OI113 GM TOP; +LEXAPRO 10 MG T10 M1 PO; +LORAZEPAM 22 MG/1 ML IV; +MAXIPIME2 GM IV; +METOCLOPRAM5 MG/1 M2 IV; +NYAMYC15 GM TOP; +NYSTATIN 1100000 U/M PO; +PEPCID20 MG IV; +PHENERGAN 25 MG25 M1 IV; +VANCOMYCIN100 MG/ML PO; +ZYVOX600 MG/300 IV; +[UNRECOGNIZED DRUG - MIXTURE] IV
[2016-10-21 12:42] VITALS: BP 130/63
[2016-10-21 13:57] LABS: HEMATOCRIT 29.2 % (37.0-47.0); HEMOGLOBIN 9.8 gm/dL (12.0-15.0); MCH 30.3 pg (26.0-34.0); MCHC 33.7 g/dL (28.0-37.0); MCV 89.9 fL (80.0-100.0); PLATELET COUNT 482 thou/uL (150-400); RBC 3.25 mil/uL (4.20-5.00); RDW 15.1 % (10.5-14.5); WBC 11.6 thou/uL (4.0-11.0)
[2016-10-21 14:06] LABS: MANUAL DIFF YES
[2016-10-21 14:26] LABS: ANION GAP 7 mmol/L (7-16); BUN 58 mg/dL (7-18); CALCIUM 10.1 mg/dL (8.5-10.1); CHLORIDE 106 mmol/L (98-107); CO2 21 mmol/L (21-32); CREATININE 1.4 mg/dL (0.6-1.0); GLUCOSE 165 mg/dL (74-106); POTASSIUM 3.2 mmol/L (3.5-5.1); SODIUM 134 mmol/L (136-145)
[2016-10-21 14:30] LABS: ALBUMIN 1.9 g/dL (3.4-5.0); ALKALINE PHOSPHATASE 187 U/L (46-116); DIRECT BILIRUBIN < 0.1 mg/dL (<0.1-0.3); SGOT 13 U/L (15-37); SGPT 20 U/L (30-65); TOTAL BILIRUBIN 0.1 mg/dL (<0.1-1.0); TOTAL PROTEIN 6.4 g/dL (6.4-8.2)
[2016-10-21 15:01] LABS: ABSOLUTE NEUTROPHILS 9.5 thou/uL (1.4-8.2); TOTAL CELL COUNT 100
[2016-10-21 15:02] LABS: ANISOCYTOSIS 2+; POLYCHROMASIA OCCASIONAL
[2016-10-21 17:18] LABS: URINE BILIRUBIN NEGATIVE (Negative); URINE BLOOD 2+ (Negative); URINE COLOR YELLOW; URINE GLUCOSE-RANDOM* NEGATIVE (Negative); URINE KETONES NEGATIVE (Negative); URINE LEUKOCYTES-REFLEX 3+ (Negative); URINE PROTEIN (DIPSTICK) TRACE (Negative); URINE UROBILINOGEN 0.2 E.U./dl (0.2-1.0)
[2016-10-21 17:25] LABS: HYALINE CASTS 0-3 Few /LPF (None Seen); SQUAMOUS 4-10 Moderate /LPF (0-3)
[2016-10-21 17:26] LABS: CRYSTALS None Seen /LPF (None Seen); URINE RBC >20 Many /HPF (0-2); URINE WBC-REFLEX >25 Many /HPF (0-5)
[2016-10-21 18:01] VITALS: BP 135/67
[2016-10-21 18:10] VITALS: BP 129/66
[2016-10-22 06:18] LABS: HEMATOCRIT 28.8 % (37.0-47.0); HEMOGLOBIN 9.8 gm/dL (12.0-15.0); MCH 30.5 pg (26.0-34.0); MCV 89.7 fL (80.0-100.0); RBC 3.21 mil/uL (4.20-5.00); RDW 14.9 % (10.5-14.5); WBC 12.8 thou/uL (4.0-11.0)
[2016-10-22 06:31] LABS: ALBUMIN 1.9 g/dL (3.4-5.0); CALCIUM 9.9 mg/dL (8.5-10.1); CREATININE 1.6 mg/dL (0.6-1.0); POTASSIUM 3.1 mmol/L (3.5-5.1); TOTAL BILIRUBIN 0.2 mg/dL (<0.1-1.0); TOTAL PROTEIN 6.2 g/dL (6.4-8.2)
[2016-10-22 08:00] VITALS: BP 122/59
[2016-10-22 16:00] VITALS: BP 118/51
[2016-10-22 20:00] VITALS: BP 134/78
[2016-10-23 04:00] VITALS: BP 126/60
[2016-10-23 05:53] LABS: CALCIUM 9.6 mg/dL (8.5-10.1); CREATININE 1.7 mg/dL (0.6-1.0); MAGNESIUM 1.6 mg/dL (1.8-2.4); PHOSPHORUS 4.1 mg/dL (2.5-4.9); POTASSIUM 3.3 mmol/L (3.5-5.1)
[2016-10-23 07:15] VITALS: BP 116/59
[2016-10-23 15:56] VITALS: BP 133/60
[2016-10-23 20:12] VITALS: BP 130/56
[2016-10-23 23:50] VITALS: BP 136/56
[2016-10-24 04:00] VITALS: BP 122/59
[2016-10-24 04:58] LABS: HEMATOCRIT 27.4 % (37.0-47.0); HEMOGLOBIN 9.4 gm/dL (12.0-15.0); MCH 30.8 pg (26.0-34.0); MCHC 34.2 g/dL (28.0-37.0); MCV 90.2 fL (80.0-100.0); RBC 3.04 mil/uL (4.20-5.00); RDW 15.4 % (10.5-14.5); WBC 8.8 thou/uL (4.0-11.0)
[2016-10-24 05:15] LABS: ALBUMIN 1.7 g/dL (3.4-5.0); ALKALINE PHOSPHATASE 172 U/L (46-116); ANION GAP 9 mmol/L (7-16); BUN 50 mg/dL (7-18); CALCIUM 9.6 mg/dL (8.5-10.1); CHLORIDE 104 mmol/L (98-107); CO2 20 mmol/L (21-32); CREATININE 1.6 mg/dL (0.6-1.0); GLUCOSE 144 mg/dL (74-106); MAGNESIUM 2.3 mg/dL (1.8-2.4); POTASSIUM 3.5 mmol/L (3.5-5.1); SGOT 10 U/L (15-37); SGPT 22 U/L (30-65); SODIUM 133 mmol/L (136-145); TOTAL PROTEIN 5.9 g/dL (6.4-8.2)
[2016-10-24 05:17] LABS: TOTAL BILIRUBIN < 0.1 mg/dL (<0.1-1.0)
[2016-10-24 08:08] VITALS: BP 127/64
[2016-10-24 12:01] LABS: MAGNESIUM 2.3 mg/dL (1.8-2.4); POTASSIUM 4.2 mmol/L (3.5-5.1)
[2016-10-24 17:10] VITALS: BP 118/67
[2016-10-24 20:00] VITALS: BP 117/60
[2016-10-25 04:00] VITALS: BP 117/62
[2016-10-25 08:15] VITALS: BP 109/62
[2016-10-25 14:26] LABS: CALCIUM 9.8 mg/dL (8.5-10.1); CREATININE 1.4 mg/dL (0.6-1.0); MAGNESIUM 2.1 mg/dL (1.8-2.4); PHOSPHORUS 3.1 mg/dL (2.5-4.9)
[2016-10-25 17:25] VITALS: BP 113/60
[2016-10-25 20:28] VITALS: BP 142/66
[2016-10-26 03:40] VITALS: BP 125/60
[2016-10-26 06:20] LABS: HEMATOCRIT 26.2 % (37.0-47.0); HEMOGLOBIN 8.9 gm/dL (12.0-15.0); MCH 30.9 pg (26.0-34.0); MCV 90.7 fL (80.0-100.0); RBC 2.89 mil/uL (4.20-5.00); RDW 15.1 % (10.5-14.5); WBC 9.2 thou/uL (4.0-11.0)
[2016-10-26 06:34] LABS: ALBUMIN 1.7 g/dL (3.4-5.0); CALCIUM 9.6 mg/dL (8.5-10.1); CREATININE 1.4 mg/dL (0.6-1.0); MAGNESIUM 2.1 mg/dL (1.8-2.4); PHOSPHORUS 3.1 mg/dL (2.5-4.9); POTASSIUM 3.7 mmol/L (3.5-5.1)
[2016-10-26 08:18] VITALS: BP 114/54
[2016-10-26 17:04] VITALS: BP 121/62
[2016-10-26 19:36] VITALS: BP 115/66
[2016-10-26 19:40] VITALS: BP 115/69
[2016-10-27 09:01] VITALS: BP 139/68
[2016-10-27 10:32] LABS: HEMATOCRIT 27.4 % (37.0-47.0); HEMOGLOBIN 9.2 gm/dL (12.0-15.0); MCH 30.4 pg (26.0-34.0); MCHC 33.5 g/dL (28.0-37.0); MCV 90.8 fL (80.0-100.0); RBC 3.01 mil/uL (4.20-5.00); RDW 15.1 % (10.5-14.5); WBC 9.5 thou/uL (4.0-11.0)
[2016-10-27 10:43] LABS: CALCIUM 9.8 mg/dL (8.5-10.1); CREATININE 1.3 mg/dL (0.6-1.0); POTASSIUM 3.7 mmol/L (3.5-5.1)
[2016-10-27 15:32] VITALS: BP 113/69
[2016-10-27 20:00] VITALS: BP 113/54
[2016-10-28 04:24] LABS: HEMATOCRIT 26.2 % (37.0-47.0); HEMOGLOBIN 8.7 gm/dL (12.0-15.0); MCH 30.1 pg (26.0-34.0); MCHC 33.3 g/dL (28.0-37.0); MCV 90.4 fL (80.0-100.0); RBC 2.9 mil/uL (4.20-5.00)
[2016-10-28 04:41] LABS: CALCIUM 9.5 mg/dL (8.5-10.1); CREATININE 1.3 mg/dL (0.6-1.0); PHOSPHORUS 3.9 mg/dL (2.5-4.9); POTASSIUM 3.5 mmol/L (3.5-5.1)
[2016-10-28 06:15] VITALS: BP 120/50
[2016-10-28 09:03] VITALS: BP 133/54
[2016-10-28] MEDS ORDERED: FENTANYL PA25 MCG/HR TOP (11:35)
[2016-10-28 16:20] VITALS: BP 165/75
== END 2016-10-28 15:00 | DRG 388 ==
LOC: ER 12:41 → 4E 16:11 → 4S 10-28 12:12
PROVIDERS: Family Medicine; Physician Assistant
PROC: 02HV33Z Insertion of Infusion Device into Superior Vena Cava, Percutaneous Approach (ICD-10-PCS; principal; 2016-10-22)
DX: K56.60 Unspecified intestinal obstruction (principal); E43 Unspecified severe protein-calorie malnutrition; L89.894 Pressure ulcer of other site, stage 4; E13.10 Other specified diabetes mellitus with ketoacidosis without coma; K63.2 Fistula of intestine; N39.0 Urinary tract infection, site not specified; N17.9 Acute kidney failure, unspecified; M62.82 Rhabdomyolysis; A04.7 Enterocolitis due to Clostridium difficile; K56.7 Ileus, unspecified; E87.6 Hypokalemia; F90.9 Attention-deficit hyperactivity disorder, unspecified type; E86.0 Dehydration; Z66 Do not resuscitate; E66.9 Obesity, unspecified; D50.0 Iron deficiency anemia secondary to blood loss (chronic); B95.2 Enterococcus as the cause of diseases classified elsewhere; B96.5 Pseudomonas (aeruginosa) (mallei) (pseudomallei) as the cause of diseases classified elsewhere; N18.9 Chronic kidney disease, unspecified; I12.9 Hypertensive chronic kidney disease with stage 1 through stage 4 chronic kidney disease, or unspecified chronic kidney disease; E11.22 Type 2 diabetes mellitus with diabetic chronic kidney disease; L89.152 Pressure ulcer of sacral region, stage 2; Z68.33 Body mass index [BMI] 33.0-33.9, adult; Z86.19 Personal history of other infectious and parasitic diseases; Z87.891 Personal history of nicotine dependence; Z87.81 Personal history of (healed) traumatic fracture; Z87.19 Personal history of other diseases of the digestive system; Z79.4 Long term (current) use of insulin; Z79.899 Other long term (current) drug therapy; Z91.81 History of falling; Z90.49 Acquired absence of other specified parts of digestive tract; Z88.1 Allergy status to other antibiotic agents
CPT/HCPCS: 10102; 10183; 27000